=== PATIENT | male | born 1965 | race Caucasian/White ===

== ENCOUNTER 2020-03-13 08:45 | Outpatient (REF) | payer OTHER, SELFPAY ==
[2020-03-13 09:17] LABS: MANUAL DIFF FLAG NO
[2020-03-13 09:21] LABS: Basophils Percent Auto 0.1 % (0-2); Eosinophils Absolute Auto 0.2 X10*3/uL (0.0-0.4); Eosinophils Percent Auto 2.5 % (0-4); Hematocrit 44.8 % (42-52); Hemoglobin 15.5 g/dl (14.0-18.0); Imm Gran Abs Auto 0.02 X10*3/uL (0.00-0.03); Imm Gran Pct Auto 0.3 % (0.0-0.4); Lymphocytes Percent Auto 42.2 % (20-40); Mean Corpuscular HGB Conc 34.6 g/dl (31.0-36.0); Mean Corpuscular Hemoglobin 31.3 pg (27.0-33.0); Mean Corpuscular Volume 90.3 fL (80-98); Mean Platelet Volume 10.4 fL (9.4-12.4); Monocytes Absolute Auto 0.6 X10*3/uL (0.1-1.2); Neutrophils Absolute Auto 3.3 X10*3/uL (2.0-8.3); Neutrophils Percent Auto 46.9 % (45-73); Platelet Count 177 X10*3/uL (160-400); Red Blood Count 4.96 X10*6/uL (4.60-5.80); White Blood Count 7.1 X10*3/uL (4.8-10.8)
[2020-03-13 09:45] LABS: Alanine Aminotransferase 53 U/L (0-40); Albumin Level 4.4 g/dL (3.5-5.0); Alkaline Phosphatase 58 U/L (39-117); Anion Gap 13 (12-20); Aspartate Amino Transferase 30 U/L (5-37); Bilirubin Total 0.7 mg/dL (0.0-1.0); Blood Urea Nitrogen 22 mg/dL (9-16); Calcium 9.2 mg/dL (8.4-10.2); Carbon Dioxide 28 mmol/L (22-29); Chloride 103 mmol/L (96-108); Cholesterol 239 mg/dL; Estimated Glomerular Filt Rate > 60; Glucose Fasting 196 mg/dL (60-99); HDL Cholesterol 42 mg/dL; LDL Cholesterol Calculated 159 mg/dl; Potassium 4.5 mmol/l (3.3-5.1); Sodium 139 mmol/L (135-145); Total Protein 7.6 g/dL (6.5-8.0); Triglycerides 192 mg/dL
[2020-03-13 09:45] LABS: Creatinine Urine 209.64 mg/dL; Microalbum/Creatinine Ratio Ur 22.4 ug/mg cr
[2020-03-13 10:05] LABS: T4 Thyroxine 7.3 ug/dL (4.5-12.0); Thyroid Stimulating Hormone 2.04 mIU/mL (0.32-4.0)
[2020-03-13 11:00] LABS: Folate 13.4 ng/mL (> or = 4.0); Vitamin B12 468 pg/mL (200-900)
== END 2020-03-13 08:46 | disposition home or self-care (01) ==
LOC: HO.LAB 08:45
PROVIDERS: PCP Internal Medicine; Visit Provider Internal Medicine
DX: E78.00 Pure hypercholesterolemia, unspecified (principal); K21.9 Gastro-esophageal reflux disease without esophagitis; E66.9 Obesity, unspecified; I10 Essential (primary) hypertension; E11.65 Type 2 diabetes mellitus with hyperglycemia; G57.30 Lesion of lateral popliteal nerve, unspecified lower limb; Z86.711 Personal history of pulmonary embolism
CPT/HCPCS: 36415; 80053; 80061; 82043; 82607; 82746; 84436; 84443; 85025

== ENCOUNTER → 2020-03-16 14:41 | Outpatient (BNV) | payer OTHER, SELFPAY | PROVIDERS: PCP Internal Medicine; Visit Provider Internal Medicine | DX: I82.402 Acute embolism and thrombosis of unspecified deep veins of left lower extremity (principal); L27.0 Generalized skin eruption due to drugs and medicaments taken internally | CPT/HCPCS: 99213; 99214 ==

== ENCOUNTER → 2020-03-27 13:11 | Outpatient (BNVA) | payer OTHER, SELFPAY | PROVIDERS: PCP Internal Medicine; Referring Provider Internal Medicine; Visit Provider Internal Medicine Endocrinology, Diabetes & Metabolism | DX: E11.65 Type 2 diabetes mellitus with hyperglycemia (principal); E11.319 Type 2 diabetes mellitus with unspecified diabetic retinopathy without macular edema; I10 Essential (primary) hypertension; E78.00 Pure hypercholesterolemia, unspecified; E55.9 Vitamin D deficiency, unspecified; Z68.36 Body mass index [BMI] 36.0-36.9, adult; Z79.4 Long term (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 | CPT/HCPCS: 82947; 99214 ==

== ENCOUNTER 2020-05-25 12:02 | Outpatient (REF) | payer OTHER, SELFPAY ==
--- NOTE | 2020-05-25 12:23 | XR_ITS ---
EXAMINATION: XR CHEST CLINICAL INFORMATION: Pneumonia COMPARISON: Previous chest x-ray February 2019 TECHNIQUE: 2 views of the chest were obtained. FINDINGS: The cardiac and mediastinal contours are stable. The lung volumes are low. There is airspace disease seen in the right upper lobe probably representing pneumonia. There are increased bilateral perihilar markings, greater on the left, questionable for infiltrate(s) as well. There is no pleural effusion or pneumothorax. Bony structures are unremarkable. XR/XR chest 2V IMPRESSION: Low lung volumes. Airspace disease in the right upper lobe probably representing pneumonia and question bilateral perihilar pneumonia as well. Follow-up chest x-ray following treatment recommended.
[2020-05-25 12:39] LABS: MANUAL DIFF FLAG NO
[2020-05-25 12:53] LABS: Eosinophils Percent Auto 0.1 % (0-4); Hematocrit 45.4 % (42-52); Hemoglobin 15.3 g/dl (14.0-18.0); Imm Gran Abs Auto 0.02 X10*3/uL (0.00-0.03); Imm Gran Pct Auto 0.3 % (0.0-0.4); Lymphocytes Absolute Auto 1.6 X10*3/uL (1.2-4.9); Lymphocytes Percent Auto 21.1 % (20-40); Mean Corpuscular HGB Conc 33.7 g/dl (31.0-36.0); Mean Corpuscular Hemoglobin 30.5 pg (27.0-33.0); Mean Corpuscular Volume 90.6 fL (80-98); Mean Platelet Volume 11.3 fL (9.4-12.4); Monocytes Absolute Auto 0.5 X10*3/uL (0.1-1.2); Monocytes Percent Auto 5.9 % (2-11); Neutrophils Absolute Auto 5.6 X10*3/uL (2.0-8.3); Neutrophils Percent Auto 72.6 % (45-73); Platelet Count 112 X10*3/uL (160-400); Red Blood Count 5.01 X10*6/uL (4.60-5.80); Red Cell Distribution Width 12.8 % (11.0-16.0); White Blood Count 7.7 X10*3/uL (4.8-10.8)
[2020-05-25 13:23] LABS: Anion Gap 15 (12-20); Blood Urea Nitrogen 14 mg/dL (9-16); Calcium 8.6 mg/dL (8.4-10.2); Carbon Dioxide 29 mmol/L (22-29); Chloride 96 mmol/L (96-108); Estimated Glomerular Filt Rate > 60; Glucose Random 368 mg/dL (60-115); Potassium 4.5 mmol/l (3.3-5.1); Sodium 135 mmol/L (135-145)
== END 2020-05-25 12:03 | disposition home or self-care (01) ==
LOC: HO.LAB 12:02
PROVIDERS: PCP Internal Medicine; Visit Provider Internal Medicine
DX: J18.9 Pneumonia, unspecified organism (principal); Z20.828 Contact with and (suspected) exposure to other viral communicable diseases
CPT/HCPCS: 36415; 71046; 80048; 85025; U0003

== ENCOUNTER 2020-05-27 10:12 | Emergency (ER) | payer OTHER, SELFPAY ==
[2020-05-27 10:23] VITALS: BP 105/73; PULSE 94; RESP 18; TEMP 36.9; O2SAT 94; BMI 34.8
--- NOTE | 2020-05-27 10:27 | ECG_ITS ---
Test Reason : FLU LIKE SYMPTOMS Blood Pressure : / mmHG Vent. Rate : 088 BPM Atrial Rate : 088 BPM P-R Int : 144 ms QRS Dur : 096 ms QT Int : 394 ms P-R-T Axes : 040 024 -13 degrees QTc Int : 476 ms Normal sinus rhythm Inferior T wave inversions Abnormal ECG When compared with ECG of 06-FEB-2019 15:35, T wave inversion now evident in Inferior leads Referred By: Nhi Lemons Electronically Signed By:Conrad Chavez
--- NOTE | 2020-05-27 10:27 | XR_ITS ---
EXAMINATION: XR CHEST CLINICAL INFORMATION: Evaluate for pneumonia COMPARISON: 02/08/2019 and 05/25/2020 TECHNIQUE: Portable AP upright view of the chest was obtained. FINDINGS: Patchy opacity is seen in the right upper lobe with improvement compared to the earlier radiograph. Additionally there is improving left perihilar opacity. The lung volumes remain decreased. No pleural effusion. The heart is not enlarged. XR/XR chest 1V IMPRESSION: Improving bilateral pulmonary opacities with residual changes as above. The findings are compatible with improving pneumonia including atypical/viral infectious etiologies.
[2020-05-27 10:28] VITALS: O2SAT 93
--- NOTE | 2020-05-27 10:35 | ED.URI ---
HPI - URI/Sore Throat General Chief Complaint: Upper Respiratory Symptoms Stated Complaint: cough,pnemonia Time Seen by Provider: 05/27/20 10:19 Source: patient Mode of arrival: ambulatory Limitations: no limitations History of Present Illness HPI Narrative: 54-year-old male with a past medical history of diabetes, DVT/PE not on anticoagulation, hypertension, high cholesterol, vitamin-D deficiency, obesity here with fatigue, loss of appetite and cough with chest wall pain with coughing. The patient tells me that he has been sick with these symptoms for the last 5 days. He was seen at his primary care on 05/25 and had an x-ray which showed pneumonia. He was placed on azithromycin and today is / for him. He continues to have symptoms. He does not feel worse but feels like his symptoms are not improving. Has no shortness of breath, fevers, chills, body aches, vomiting, diarrhea. MD elicited complaint: cough Onset (ago): day(s) Consistency: intermittent Severity: moderate Able to tolerate fluids by mouth: No Associated symptoms: cough and chest pain Treatments prior to arrival: antibiotics Related Data Home Medications Medication Instructions Recorded Confirmed alcohol swabs 1 pad TOPICAL QID 03/12/20 05/25/20 atorvastatin 20 mg tablet 20 mg PO DAILY 03/12/20 05/25/20 flash glucose sensor #1 ea 03/12/20 05/25/20 gabapentin 600 mg tablet 600 mg PO TID 03/12/20 05/25/20 lancets #100 ea 03/12/20 05/25/20 nortriptyline 50 mg capsule 25 mg PO BID 03/12/20 05/25/20 pen needle, diabetic 32 gauge x #50 ea 03/12/20 05/25/20 cholecalciferol (vitamin D3) 125 mcg PO DAILY 03/16/20 05/25/20 [Vitamin D3] rivaroxaban 20 mg tablet 20 mg PO DAILY 05/25/20 05/25/20 Previous Rx's Medication Instructions Recorded empagliflozin 25 mg tablet 25 mg PO DAILY 90 Days #90 tab 03/27/20 insulin aspart U-100 100 unit/mL 20 unit SUBCUT QID 90 Days #90 ml 03/27/20 subcutaneous cartridge insulin glargine 100 unit/mL 50 unit SUBCUT QPM 90 Days #45 ml 03/27/20 subcutaneous solution metformin 1,000 mg tablet 1,000 mg PO BID 90 Days #180 tab 03/27/20 semaglutide 1 mg/dose (2 mg/1.5 1 mg SUBCUT QWEEK 90 Days #9 ml 03/27/20 mL) subcutaneous pen injector lisinopril 10 mg tablet 10 mg PO DAILY #90 tab 04/02/20 cyanocobalamin (vitamin B-12) 1,000 mcg PO DAILY #90 tab 04/05/20 1,000 mcg tablet topiramate 100 mg tablet 100 mg PO DAILY #90 tab 04/11/20 blood sugar diagnostic #150 ea 05/14/20 blood-glucose meter #1 ea 05/14/20 lancets 28 gauge #150 ea 05/14/20 azithromycin 250 mg tablet See Rx Instructions PO .COMPLEX #6 05/25/20 tab Allergies Allergy/AdvReac Type Severity Reaction Status Date / Time shellfish derived Allergy Severe DIFFICULTY Verified 04/02/20 13:54 [SHELLFISH DERIVED] BREATHING clindamycin [CLINDAMYCIN] Allergy Intermediate HIVES Verified 04/02/20 13:54 Review of Systems Review of Systems: Yes all other systems are reviewed and are negative Constitutional: Constitutional: Reports no additional constitutional complaints, Denies body ache(s), Denies chills, Reports fatigue, Denies fever(s), Denies headache(s) and Denies weakness Comments: loss of appetite Eyes: Eyes: Reports no additional eye complaints and Denies change in vision ENT: Reports system reviewed and no additional complaints, except as documented, Denies dizziness, Denies headache(s), Denies nasal congestion, Denies nasal discharge and Denies neck pain Cardiovascular: Cardiovascular: Reports no additional cardiovascular complaints, Reports chest pain, Denies leg edema and Denies dyspnea Respiratory: Respiratory: Reports no additional respiratory complaints, Reports cough and Denies dyspnea Gastrointestinal: Gastrointestinal: Reports no additional gastrointestinal complaints, Denies abdominal pain, Denies diarrhea, Denies nausea and Denies vomiting Genitourinary: Genitourinary: Denies urinary incontinence Musculoskeletal: Musculoskeletal: Reports no additional musculoskeletal complaints, Denies back pain, Denies arthralgias, Denies joint swelling, Denies neck pain, Denies numbness and Denies tingling Integumentary/Breasts: Skin/Breast: Reports system reviewed and no additional complaints, except as docu and Denies rash Neurologic: Reports system reviewed and no additional complaints, except as documented, Denies Abnormal speech present, Denies dizziness, Denies headache(s), Denies numbness, Denies tingling and Denies weakness Endocrine: Endocrine: Reports fatigue [facility] Past Medical History Attestation statement: The following information was validated with the patient. Source: old records reviewed and nursing notes reviewed Medical History Bilateral pulmonary embolism Diabetes type 2, uncontrolled 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 associated with type 2 diabetes mellitus DM type 2 (diabetes mellitus, type 2) H/O deep venous thrombosis HTN (hypertension) Hypercholesteremia penitentiary (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 Obesity Vitamin D deficiency Surgical History History of laparotomy Hx of hernia repair Hx of lithotripsy Hx of pelvic surgery Family History Family History Father Emphysema of lung Mother Diabetes Hypertension Social History Social History Alcohol intake: never Smoking Status: Never smoker Physical Exam Vital Signs: Vital Signs: Last Vital Signs Temp 98.4 F 05/27/20 11:19 Pulse 80 05/27/20 12:08 Resp 18 05/27/20 12:08 BP 104/72 05/27/20 12:08 Pulse Ox 96 05/27/20 12:08 Body Mass Index 34.8 Const: General: cooperative, healthy appearing, comfortable and no acute distress Orientation/consciousness: patient oriented x3 Limitations: no limitations HENMT: Head: Yes normal to inspection Ears: hearing grossly normal bilaterally General nose exam: Normal external nose present Face and sinus: Yes normal facial exam Mouth: Normal oral and palatal mucosa present Throat: Yes posterior oropharynx normal Eyes: General: appearance normal, both eyes and all related structures Pupils: Equal, round and reactive pupils present Neck: Neck: Yes normal visual inspection Chest: Other: The patient has some bilateral rib pain. Tender to palpate. Worsened with deep breathing and movement Chest palpation & inspection: normal inspection of the chest Resp: Effort & Inspection: normal respiratory effort Auscultation: clear to auscultation bilaterally Cardio: Rate: regular rate Rhythm: regular rhythm Peripheral pulses: Peripheral pulses 2+ throughout GI: Inspection: Yes normal to inspection Palpation (GI): Soft to palpation and nontender Auscultation: normal bowel sounds Back/Spine/Pelvis: Thoracic/Lumbar Spine: thoracic and lumbar spine normal to inspection Skin: General skin exam: no rashes or lesions noted Neuro: General: patient oriented x3, no focal motor deficits and normal sensation to monofilament Cranial nerves: Yes Equal, round and reactive pupils present Cognition (Neuro): normal cognition Speech: No Abnormal speech present Gait exam (Neuro): Normal gait present Motor exam (neuro): 5/5 motor strength present throughout Extrem: General: Yes normal to inspection Course Course Course Narrative: 54-year-old male currently on azithromycin for pneumonia here with continued symptoms of cough, chest wall pain, fatigue and loss of appetite. On arrival the patient has clear lung sounds, stable saturations and is afebrile. He is speaking full sentences in no apparent distress. Will repeat chest x-ray, check labs, EKG, COVID testing. Will give normal saline bolus and reassess. 1130-x-ray shows improving pneumonia. Patient has a mild thrombocytopenia. Mildly elevated lactic acid. Fluids infusing. This is from a viral infection as the patient is COVID positive 1415-repeat lactic improved. Patient has stable vital signs with oxygen saturation greater than 95%. He is feeling improved would like to be discharged home. Recommended continuing his antibiotics. Reviewed worrisome signs and symptoms and when to return to the emergency department. Comfortable discharge home. MDM - URI/Sore Throat Medical Records Attestation: I reviewed the patient's medical records. Lab Data Attestation: I reviewed the patient's lab results. Result diagrams: 05/27/20 10:34 05/27/20 10:34 Labs: Lab Results 05/27/20 05/27/20 05/27/20 Range/Units 10:34 10:34 10:34 WBC 6.8 (4.8-10.8) X10*3/uL RBC 5.11 (4.60-5.80) X10*6/uL Hgb 15.6 (14.0-18.0) g/dl Hct 46.1 (42-52) % MCV 90.2 (80-98) fL MCH 30.5 (27.0-33.0) pg MCHC 33.8 (31.0-36.0) g/dl RDW 12.7 (11.0-16.0) % Plt Count 159 L D (160-400) X10*3/uL MPV 11.5 (9.4-12.4) fL Immature Gran % (Auto) Cancelled Neut % (Auto) Cancelled Lymph % (Auto) Cancelled [place] % (Auto) Cancelled Eos % (Auto) Cancelled Baso % (Auto) Cancelled Lymph # (Auto) Cancelled [place] # (Auto) Cancelled Eos # (Auto) Cancelled Baso # (Auto) Cancelled Abs Immat Gran (auto) Cancelled Absolute Neuts (auto) Cancelled Absolute Nucleated RBC 0.000 (0.0-0.012) X10*3/uL Nucleated RBC % (auto) 0.0 (0.0-0.2) /100WBC Neutrophils % (Manual) 64 (45-73) % Band Neutrophils % 5 (3-5) % Lymphocytes % (Manual) 25 (20-40) % Monocytes % (Manual) 5 (2-11) % Basophils % (Manual) 1 (0-1) % Abs Neuts (Manual) 4.7 (2.2-7.9) X10*3/uL Lymphocytes # (Manual) 1.7 (0.6-4.8) X10*3/uL Monocytes # (Manual) 0.3 (0.0-1.2) X10*3/uL Basophils # (Manual) 0.1 (0.0-0.3) X10*3/uL Platelet Estimate NORMAL (NORMAL) Plt Morphology Comment NORMAL RBC Morphology NORMAL PT 14.2 H (10.8-13.0) SEC INR 1.2 H (0.9-1.1) Sodium 138 (135-145) mmol/L Potassium 3.7 (3.3-5.1) mmol/l Chloride 99 (96-108) mmol/L Carbon Dioxide 24 (22-29) mmol/L Anion Gap 19 (12-20) BUN 16 (9-16) mg/dL Creatinine 1.07 (0.5-1.4) mg/dL Estim Creat Clear Calc 89.3 Estimated GFR > 60 Random Glucose 241 H (60-115) mg/dL Lactic Acid (0.5-2.0) mmol/L Lactic Acid Fup @ 2Hr (0.5-2.0) mmol/L Calcium 8.9 (8.4-10.2) mg/dL Magnesium 2.3 (1.6-2.6) mg/dL Total Bilirubin 1.0 (0.0-1.0) mg/dL Direct Bilirubin 0.5 (0.0-0.5) mg/dL AST 38 H (5-37) U/L ALT 42 H (0-40) U/L Alkaline Phosphatase 48 (39-117) U/L Troponin I High Sens (<3.5-35.0) ng/L Total Protein 7.5 (6.5-8.0) g/dL Albumin 3.8 (3.5-5.0) g/dL Coronavirus (PCR) (Negative) Influenza Type A (PCR) (Negative) Influenza Type B (PCR) (Negative) RSV RNA Qual (PCR) (Negative) 05/27/20 05/27/20 05/27/20 Range/Units 10:34 10:34 10:34 WBC (4.8-10.8) X10*3/uL RBC (4.60-5.80) X10*6/uL Hgb (14.0-18.0) g/dl Hct (42-52) % MCV (80-98) fL MCH (27.0-33.0) pg MCHC (31.0-36.0) g/dl RDW (11.0-16.0) % Plt Count (160-400) X10*3/uL MPV (9.4-12.4) fL Immature Gran % (Auto) Neut % (Auto) Lymph % (Auto) [place] % (Auto) Eos % (Auto) Baso % (Auto) Lymph # (Auto) [place] # (Auto) Eos # (Auto) Baso # (Auto) Abs Immat Gran (auto) Absolute Neuts (auto) Absolute Nucleated RBC (0.0-0.012) X10*3/uL Nucleated RBC % (auto) (0.0-0.2) /100WBC Neutrophils % (Manual) (45-73) % Band Neutrophils % (3-5) % Lymphocytes % (Manual) (20-40) % Monocytes % (Manual) (2-11) % Basophils % (Manual) (0-1) % Abs Neuts (Manual) (2.2-7.9) X10*3/uL Lymphocytes # (Manual) (0.6-4.8) X10*3/uL Monocytes # (Manual) (0.0-1.2) X10*3/uL Basophils # (Manual) (0.0-0.3) X10*3/uL Platelet Estimate (NORMAL) Plt Morphology Comment RBC Morphology PT (10.8-13.0) SEC INR (0.9-1.1) Sodium (135-145) mmol/L Potassium (3.3-5.1) mmol/l Chloride (96-108) mmol/L Carbon Dioxide (22-29) mmol/L Anion Gap (12-20) BUN (9-16) mg/dL Creatinine (0.5-1.4) mg/dL Estim Creat Clear Calc Estimated GFR Random Glucose (60-115) mg/dL Lactic Acid 2.5 H* (0.5-2.0) mmol/L Lactic Acid Fup @ 2Hr (0.5-2.0) mmol/L Calcium (8.4-10.2) mg/dL Magnesium (1.6-2.6) mg/dL Total Bilirubin (0.0-1.0) mg/dL Direct Bilirubin (0.0-0.5) mg/dL AST (5-37) U/L ALT (0-40) U/L Alkaline Phosphatase (39-117) U/L Troponin I High Sens 3.9 (<3.5-35.0) ng/L Total Protein (6.5-8.0) g/dL Albumin (3.5-5.0) g/dL Coronavirus (PCR) POSITIVE A (Negative) Influenza Type A (PCR) NEGATIVE (Negative) Influenza Type B (PCR) NEGATIVE (Negative) RSV RNA Qual (PCR) NEGATIVE (Negative) 05/27/20 Range/Units 13:24 WBC (4.8-10.8) X10*3/uL RBC (4.60-5.80) X10*6/uL Hgb (14.0-18.0) g/dl Hct (42-52) % MCV (80-98) fL MCH (27.0-33.0) pg MCHC (31.0-36.0) g/dl RDW (11.0-16.0) % Plt Count (160-400) X10*3/uL MPV (9.4-12.4) fL Immature Gran % (Auto) Neut % (Auto) Lymph % (Auto) [place] % (Auto) Eos % (Auto) Baso % (Auto) Lymph # (Auto) [place] # (Auto) Eos # (Auto) Baso # (Auto) Abs Immat Gran (auto) Absolute Neuts (auto) Absolute Nucleated RBC (0.0-0.012) X10*3/uL Nucleated RBC % (auto) (0.0-0.2) /100WBC Neutrophils % (Manual) (45-73) % Band Neutrophils % (3-5) % Lymphocytes % (Manual) (20-40) % Monocytes % (Manual) (2-11) % Basophils % (Manual) (0-1) % Abs Neuts (Manual) (2.2-7.9) X10*3/uL Lymphocytes # (Manual) (0.6-4.8) X10*3/uL Monocytes # (Manual) (0.0-1.2) X10*3/uL Basophils # (Manual) (0.0-0.3) X10*3/uL Platelet Estimate (NORMAL) Plt Morphology Comment RBC Morphology PT (10.8-13.0) SEC INR (0.9-1.1) Sodium (135-145) mmol/L Potassium (3.3-5.1) mmol/l Chloride (96-108) mmol/L Carbon Dioxide (22-29) mmol/L Anion Gap (12-20) BUN (9-16) mg/dL Creatinine (0.5-1.4) mg/dL Estim Creat Clear Calc Estimated GFR Random Glucose (60-115) mg/dL Lactic Acid (0.5-2.0) mmol/L Lactic Acid Fup @ 2Hr 2.0 (0.5-2.0) mmol/L Calcium (8.4-10.2) mg/dL Magnesium (1.6-2.6) mg/dL Total Bilirubin (0.0-1.0) mg/dL Direct Bilirubin (0.0-0.5) mg/dL AST (5-37) U/L ALT (0-40) U/L Alkaline Phosphatase (39-117) U/L Troponin I High Sens (<3.5-35.0) ng/L Total Protein (6.5-8.0) g/dL Albumin (3.5-5.0) g/dL Coronavirus (PCR) (Negative) Influenza Type A (PCR) (Negative) Influenza Type B (PCR) (Negative) RSV RNA Qual (PCR) (Negative) Imaging Data Chest x-ray: Attestation: I personally reviewed and interpreted this imaging study as follows: Radiologist's impression: EXAMINATION: XR CHEST CLINICAL INFORMATION: Evaluate for pneumonia COMPARISON: 02/08/2019 and 05/25/2020 TECHNIQUE: Portable AP upright view of the chest was obtained. FINDINGS: Patchy opacity is seen in the right upper lobe with improvement compared to the earlier radiograph. Additionally there is improving left perihilar opacity. The lung volumes remain decreased. No pleural effusion. The heart is not enlarged. XR/XR chest 1V IMPRESSION: Improving bilateral pulmonary opacities with residual changes as above. The findings are compatible with improving pneumonia including atypical/viral infectious etiologies. ECG Data Attestation: I personally reviewed and interpreted this ECG as follows: ECG interpretation date: 05/27/20 ECG interpretation time: 11:12 Interpretation: Normal sinus rhythm, rate 88, normal MN, normal QRS, normal QT Discharge Plan Discharge Clinical Impression: COVID-19 Patient Disposition: Home, Self-Care Instructions: COVID-19 (Coronavirus Disease 2019) (ED) Additional Instructions: Your x-ray looks better today. Continue your antibiotics. You have tested positive for COVID-19. You will need to self quarantine for a total of 10 days per the CDC and have completely resolved symptoms for greater than 24 hours. Take Motrin or Tylenol as needed for pain or fever Increase fluids, rest Return for severe shortness of breath, fever that does not respond to Motrin or Tylenol Prescriptions: No Action cyanocobalamin (vitamin B-12) [Vitamin B-12] 1,000 mcg tablet 1,000 mcg PO DAILY Qty: 90 RF: 3 topiramate 100 mg tablet 100 mg PO DAILY Qty: 90 RF: 1 (DME) blood-glucose meter [FreeStyle Lite Meter] Kit See Rx Instructions .ROUTE .MEDSUPPLY Qty: 1 RF: 0 (DME) FreeStyle Lite Strips Strip See Rx Instructions .ROUTE .MEDSUPPLY Qty: 150 RF: 6 (DME) lancets [FreeStyle Lancets] 28 gauge misc See Rx Instructions .ROUTE .MEDSUPPLY Qty: 150 RF: 6 cholecalciferol (vitamin D3) [Vitamin D3] 125 mcg (5,000 unit) Tablet 125 mcg PO DAILY RF: 0 Xarelto 20 mg tablet 20 mg PO DAILY RF: 0 azithromycin [Zithromax] 250 mg tablet See Rx Instructions PO .COMPLEX Qty: 6 RF: 0 lisinopril 10 mg tablet 10 mg PO DAILY Qty: 90 RF: 8 nortriptyline 50 mg capsule 25 mg PO BID RF: 0 alcohol swabs [Alcohol Prep Pads] Pads, Medicated 1 pad topical QID RF: 0 (DME) lancets [Accu-Chek Fastclix Lancet Drum] Misc See Rx Instructions .ROUTE .MEDSUPPLY Qty: 100 RF: 0 (DME) FreeStyle Magdalene 14 Day Sensor Kit See Rx Instructions .ROUTE .MEDSUPPLY Qty: 1 RF: 0 atorvastatin 20 mg tablet 20 mg PO DAILY RF: 0 gabapentin 600 mg tablet 600 mg PO TID RF: 0 (DME) pen needle, diabetic [BD Ultra-Fine Annalisa Pen Needle] 32 gauge x 5/32 needle See Rx Instructions .ROUTE .MEDSUPPLY Qty: 50 RF: 0 Ozempic 1 mg/dose (2 mg/1.5 mL) pen injector 1 mg SUBCUT QWEEK 90 Days Qty: 9 RF: 2 metformin 1,000 mg tablet 1,000 mg PO BID 90 Days Qty: 180 RF: 1 Jardiance 25 mg tablet 25 mg PO DAILY 90 Days Qty: 90 RF: 1 Lantus U-100 Insulin 100 unit/mL solution 50 unit subcut QPM 90 Days Qty: 45 RF: 1 insulin aspart U-100 [Novolog PenFill U-100 Insulin] 100 unit/mL cartridge 20 unit subcut QID 90 Days Qty: 90 RF: 1 Referrals: Po,Herlinda Azul MD [Primary Care Provider] - 2 days Interventions: ED Discharge Assessment Last Done: 05/27/20 14:15 Discharge Date/Time: 05/27/20 14:34
[2020-05-27 10:43] LABS: Hematocrit 46.1 % (42-52); Hemoglobin 15.6 g/dl (14.0-18.0); Mean Corpuscular HGB Conc 33.8 g/dl (31.0-36.0); Mean Corpuscular Hemoglobin 30.5 pg (27.0-33.0); Mean Corpuscular Volume 90.2 fL (80-98); Mean Platelet Volume 11.5 fL (9.4-12.4); Platelet Count 159 X10*3/uL (160-400); Red Blood Count 5.11 X10*6/uL (4.60-5.80); Red Cell Distribution Width 12.7 % (11.0-16.0); White Blood Count 6.8 X10*3/uL (4.8-10.8)
[2020-05-27 10:50] LABS: INTERNATIONAL NORM RATIO 1.2 (0.9-1.1); Prothrombin Time 14.2 SEC (10.8-13.0)
--- NOTE | 2020-05-27 11:04 | PC.NURSE ---
Patient complaining of loss of appetite and not feeling well. Was seen by PCP on Thursday, diagnosed with pneumonia, and being treated with zpack. Patient reports feeling no different form Thursday. Reports no worsening of symptoms. Biggest complaint is loss of appetite. Patient is well appearing with regular, even, and nonlabored respirations. Skin PWD. O2 sat 94% on room air. Does not feel SOB at this time. IV established and labs drawn. Swabbed for respiratory panel.
[2020-05-27 11:07] LABS: Alanine Aminotransferase 42 U/L (0-40); Albumin Level 3.8 g/dL (3.5-5.0); Alkaline Phosphatase 48 U/L (39-117); Anion Gap 19 (12-20); Aspartate Amino Transferase 38 U/L (5-37); Bilirubin Direct 0.5 mg/dL (0.0-0.5); Blood Urea Nitrogen 16 mg/dL (9-16); Calcium 8.9 mg/dL (8.4-10.2); Carbon Dioxide 24 mmol/L (22-29); Chloride 99 mmol/L (96-108); Creatinine Clr Calc Pharmacy 89.3; Estimated Glomerular Filt Rate > 60; Glucose Random 241 mg/dL (60-115); Magnesium 2.3 mg/dL (1.6-2.6); Potassium 3.7 mmol/l (3.3-5.1); Sodium 138 mmol/L (135-145); Total Protein 7.5 g/dL (6.5-8.0)
[2020-05-27 11:10] LABS: Troponin-I High Sensitivity 3.9 ng/L (<3.5-35.0)
[2020-05-27 11:15] LABS: Lactic Acid 2.5 mmol/L (0.5-2.0)
[2020-05-27 11:19] VITALS: BP 115/72; PULSE 89; RESP 24; TEMP 36.9; O2SAT 95
[2020-05-27 11:23] LABS: Influenza A PCR NEGATIVE (Negative); Influenza B PCR NEGATIVE (Negative); Resp Syncy Virus RNA Qual PCR NEGATIVE (Negative); SARS COV2 PCR INHOUSE POSITIVE (Negative)
[2020-05-27] MEDS: 0.9 % Sodium Chloride 1,000 ML 999 ML IV (11:27)
[2020-05-27 11:29] LABS: Band Neutrophils Percent 5 % (3-5); Basophils Abs Manual 0.1 X10*3/uL (0.0-0.3); Basophils Percent Manual 1 % (0-1); Lymphocytes Absolute Manual 1.7 X10*3/uL (0.6-4.8); Lymphocytes Percent Manual 25 % (20-40); Monocytes Absolute Manual 0.3 X10*3/uL (0.0-1.2); Monocytes Percent Manual 5 % (2-11); Neutrophils Absolute Manual 4.7 X10*3/uL (2.2-7.9); Neutrophils Percent Manual 64 % (45-73)
--- NOTE | 2020-05-27 11:29 | PC.NURSE ---
patient a&ox3, ekg performed, second set of blood cultures obtained, pt nsr 80s on registered nurse cardiac, 94% on room air, pt speaking in full sentences no [place]/sob noted at this time, ivf running per order, will continue to monitor.
[2020-05-27 11:30] LABS: Platelet Estimate NORMAL (NORMAL); Platelet Morphology Comment NORMAL; RBC Morphology NORMAL
[2020-05-27 12:08] VITALS: BP 104/72; PULSE 80; RESP 18; O2SAT 96
[2020-05-27 12:42] LABS: Reflex Lactate? Lactic Acid Added
== END 2020-05-27 14:34 | disposition home or self-care (01) ==
PROVIDERS: Nurse Practitioner Family; Emergency Provider Emergency Medicine; PCP Internal Medicine
DX: U07.1 COVID-19 (principal); E11.9 Type 2 diabetes mellitus without complications; Z86.711 Personal history of pulmonary embolism; Z86.718 Personal history of other venous thrombosis and embolism; Z87.01 Personal history of pneumonia (recurrent)
CPT/HCPCS: 0241U; 36415; 71045; 80048; 80076; 83605; 83735; 84484; 85007; 85025; 85027; 85610; 87040; 93005; 96360; 99284; 99285

== ENCOUNTER 2020-06-07 15:12 | Outpatient (REF) | payer OTHER, SELFPAY | END 2020-06-07 15:13 | disposition home or self-care (01) | LOC: HO.LAB 15:12 | PROVIDERS: Visit Provider Internal Medicine | DX: Z20.828 Contact with and (suspected) exposure to other viral communicable diseases (principal) | CPT/HCPCS: C9803; U0003 ==

== ENCOUNTER → 2020-06-29 08:25 | Outpatient (BNVA) | payer OTHER, SELFPAY | PROVIDERS: PCP Internal Medicine; Referring Provider Internal Medicine; Visit Provider Internal Medicine Endocrinology, Diabetes & Metabolism | DX: E11.65 Type 2 diabetes mellitus with hyperglycemia (principal); E11.319 Type 2 diabetes mellitus with unspecified diabetic retinopathy without macular edema; Z79.4 Long term (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; I10 Essential (primary) hypertension; E78.00 Pure hypercholesterolemia, unspecified; E55.9 Vitamin D deficiency, unspecified; E66.9 Obesity, unspecified | CPT/HCPCS: Q3014 ==

== ENCOUNTER 2020-07-20 11:42 | Outpatient (REF) | payer OTHER, SELFPAY ==
[2020-07-20 13:58] LABS: Estimated Average Glucose 269 mg/dL
[2020-07-20 14:27] LABS: Alanine Aminotransferase 38 U/L (0-40); Albumin Level 3.7 g/dL (3.5-5.0); Alkaline Phosphatase 53 U/L (39-117); Anion Gap 17 (12-20); Aspartate Amino Transferase 30 U/L (5-37); Bilirubin Total 0.7 mg/dL (0.0-1.0); Blood Urea Nitrogen 12 mg/dL (9-16); Calcium 8.5 mg/dL (8.4-10.2); Carbon Dioxide 22 mmol/L (22-29); Chloride 105 mmol/L (96-108); Cholesterol 248 mg/dL; Estimated Glomerular Filt Rate > 60; Glucose Fasting 202 mg/dL (60-99); HDL Cholesterol 43 mg/dL; LDL Cholesterol Calculated 172 mg/dl; Potassium 4.1 mmol/L (3.3-5.1); Sodium 140 mmol/L (135-145); Total Protein 6.7 g/dL (6.5-8.0); Triglycerides 167 mg/dL
[2020-07-21 03:13] LABS: LDL Cholesterol Direct 186 mg/dL (<100)
== END 2020-07-20 11:43 | disposition home or self-care (01) ==
LOC: HO.10HDL 11:42
PROVIDERS: Visit Provider Internal Medicine Endocrinology, Diabetes & Metabolism
DX: E11.65 Type 2 diabetes mellitus with hyperglycemia (principal); Z79.4 Long term (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; E78.00 Pure hypercholesterolemia, unspecified
CPT/HCPCS: 36415; 80053; 80061; 83036; 83721

== ENCOUNTER → 2020-09-03 10:06 | Outpatient (BNVA) | payer OTHER, SELFPAY | PROVIDERS: PCP Internal Medicine; Visit Provider Internal Medicine Endocrinology, Diabetes & Metabolism | DX: E11.65 Type 2 diabetes mellitus with hyperglycemia (principal); E11.319 Type 2 diabetes mellitus with unspecified diabetic retinopathy without macular edema; Z79.4 Long term (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; E78.00 Pure hypercholesterolemia, unspecified; E55.9 Vitamin D deficiency, unspecified; E66.9 Obesity, unspecified; I10 Essential (primary) hypertension | CPT/HCPCS: 82947; 99212 ==

== ENCOUNTER → 2020-12-03 09:12 | Outpatient (BNVA) | payer OTHER, SELFPAY | PROVIDERS: PCP Internal Medicine; Visit Provider Internal Medicine Endocrinology, Diabetes & Metabolism | DX: E11.65 Type 2 diabetes mellitus with hyperglycemia (principal); E11.3293 Type 2 diabetes mellitus with mild nonproliferative diabetic retinopathy without macular edema, bilateral; E78.00 Pure hypercholesterolemia, unspecified; E55.9 Vitamin D deficiency, unspecified; I10 Essential (primary) hypertension; Z79.4 Long term (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 | CPT/HCPCS: 82947; 99212 ==

== ENCOUNTER 2020-12-16 13:52 | Emergency (ER) | payer OTHER, SELFPAY ==
[2020-12-16 14:07] VITALS: BP 126/71; PULSE 100; RESP 18; TEMP 36.7; O2SAT 98; BMI 34.4
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
== END 2020-12-16 17:24 | disposition home or self-care (01) ==
PROVIDERS: Emergency Provider Internal Medicine; PCP Internal Medicine
DX: S30.0XXA Contusion of lower back and pelvis, initial encounter (principal); S80.812A Abrasion, left lower leg, initial encounter; I10 Essential (primary) hypertension; E11.9 Type 2 diabetes mellitus without complications; Z86.711 Personal history of pulmonary embolism; Z79.4 Long term (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; Z79.01 Long term (current) use of anticoagulants; Z79.899 Other long term (current) drug therapy; W01.0XXA Fall on same level from slipping, tripping and stumbling without subsequent striking against object, initial encounter; Y93.9 Activity, unspecified; Y99.9 Unspecified external cause status; Y92.9 Unspecified place or not applicable
CPT/HCPCS: 99283

== ENCOUNTER 2020-12-20 13:55 | Outpatient (REF) | payer OTHER, SELFPAY ==
--- NOTE | ~2020-12-20 | XR_ITS ---
EXAMINATION: XR LUMBOSACRAL SPINE CLINICAL INFORMATION: Lower back pain. COMPARISON: CT abdomen/pelvis dated 08/30/2015. TECHNIQUE: Three views of the lumbosacral spine. FINDINGS: Normal vertebral body alignment. The lumbar lordosis is maintained. No acute fracture or subluxation. No loss of vertebral body height. Mild loss of intervertebral disc height with tiny endplate osteophytes at L3-L4 and L4-L5. Bilateral facet arthropathy at L4-L5 and L5-S1. Fusion hardware at the right and left sacroiliac joints. Stabilization plate and fixation screws across the symphysis pubis. Chronic deformity of the pelvis, consistent with remote fractures. XR/XR lumbar spine 2-3V IMPRESSION: No acute fracture or subluxation. Minimal degenerative disc disease at L3-L4 and L4-L5 with bilateral facet arthropathy at L4-L5 and L5-S1.
[2020-12-20 16:19] LABS: Cholesterol 182 mg/dL; HDL Cholesterol 43 mg/dL; LDL Cholesterol Calculated 101 mg/dl; Triglycerides 193 mg/dL
[2020-12-21 07:56] LABS: LDL Cholesterol Direct 117 mg/dL (<100)
== END 2020-12-20 13:56 | disposition home or self-care (01) ==
LOC: HO.XRAY 13:55
PROVIDERS: Absent Provider Internal Medicine; PCP Internal Medicine; Visit Provider Internal Medicine Endocrinology, Diabetes & Metabolism
DX: M54.5 Low back pain (principal); E11.65 Type 2 diabetes mellitus with hyperglycemia
CPT/HCPCS: 36415; 72100; 80061; 83721

== ENCOUNTER 2021-07-04 11:10 | Outpatient (REF) | payer OTHER, SELFPAY ==
[2021-07-04 11:55] LABS: MANUAL DIFF FLAG NO
[2021-07-04 12:36] LABS: Basophils Percent Auto 0.2 % (0-2); Eosinophils Absolute Auto 0.3 X10*3/uL (0.0-0.4); Eosinophils Percent Auto 3.4 % (0-4); Hematocrit 45.4 % (42.0-52.0); Hemoglobin 15.3 g/dl (14.0-18.0); Imm Gran Abs Auto 0.02 X10*3/uL (0.00-0.03); Imm Gran Pct Auto 0.2 % (0.0-0.4); Lymphocytes Absolute Auto 3.4 X10*3/uL (1.2-4.9); Lymphocytes Percent Auto 42.6 % (20-40); Mean Corpuscular HGB Conc 33.7 g/dl (31.0-36.0); Mean Corpuscular Hemoglobin 30.7 pg (27.0-33.0); Mean Corpuscular Volume 91.2 fL (80.0-98.0); Mean Platelet Volume 10.4 fL (9.4-12.4); Monocytes Absolute Auto 0.6 X10*3/uL (0.1-1.2); Monocytes Percent Auto 7.7 % (2-11); Neutrophils Absolute Auto 3.7 x10*3/uL (2.0-8.3); Neutrophils Percent Auto 45.9 % (45-73); Platelet Count 181 X10*3/uL (160-400); Red Blood Count 4.98 X10*6/uL (4.60-5.80)
[2021-07-04 13:02] LABS: Alanine Aminotransferase 39 U/L (0-40); Albumin Level 4.2 g/dL (3.5-5.0); Alkaline Phosphatase 63 U/L (39-117); Anion Gap 13 (12-20); Aspartate Amino Transferase 24 U/L (5-37); Bilirubin Total 0.5 mg/dL (0.0-1.0); Blood Urea Nitrogen 19 mg/dL (9-16); Calcium 9.8 mg/dL (8.4-10.2); Carbon Dioxide 24 mmol/L (22-29); Chloride 106 mmol/L (96-108); Cholesterol 131 mg/dL; Estimated Glomerular Filt Rate > 60; Glucose Random 109 mg/dL (60-115); HDL Cholesterol 43 mg/dL; LDL Cholesterol Calculated 73 mg/dl; Potassium 4.4 mmol/L (3.3-5.1); Sodium 139 mmol/L (135-145); Total Protein 7.5 g/dL (6.5-8.0); Triglycerides 79 mg/dL
[2021-07-04 13:23] LABS: Free T4 (Free Thyroxine) 0.83 ng/dL (0.71-1.85); Thyroid Stimulating Hormone 2.15 uIU/mL (0.32-4.0)
[2021-07-04 13:27] LABS: Creatinine Urine 90.02 mg/dL; Microalbumin Urine < 5.0 mg/L
[2021-07-04 14:06] LABS: Folate 16.5 ng/mL (> or = 4.0); Vitamin B12 828 pg/mL (200-900)
== END 2021-07-04 11:11 | disposition home or self-care (01) ==
LOC: HO.LAB 11:10
PROVIDERS: PCP Internal Medicine; Visit Provider Internal Medicine
DX: E11.65 Type 2 diabetes mellitus with hyperglycemia (principal); E78.00 Pure hypercholesterolemia, unspecified
CPT/HCPCS: 36415; 80053; 80061; 82043; 82607; 82746; 84439; 84443; 85025

== ENCOUNTER → 2021-07-05 07:59 | Outpatient (BNVA) | payer OTHER, SELFPAY | PROVIDERS: Visit Provider Nurse Practitioner Gerontology | DX: E11.65 Type 2 diabetes mellitus with hyperglycemia (principal); E78.00 Pure hypercholesterolemia, unspecified; E55.9 Vitamin D deficiency, unspecified; I10 Essential (primary) hypertension; Z79.4 Long term (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 | CPT/HCPCS: 82947; 83036; 99212 ==

== ENCOUNTER → 2021-08-22 15:49 | Outpatient (BNVA) | payer OTHER, SELFPAY | PROVIDERS: PCP Internal Medicine; Referring Provider Internal Medicine; Visit Provider Surgery | DX: Z86.010 Personal history of colon polyps (principal) | CPT/HCPCS: 99202 ==

== ENCOUNTER → 2021-10-04 08:01 | Outpatient (BNVA) | payer OTHER, SELFPAY | PROVIDERS: PCP Internal Medicine; Visit Provider Nurse Practitioner Gerontology | DX: E11.65 Type 2 diabetes mellitus with hyperglycemia (principal); E55.9 Vitamin D deficiency, unspecified; E78.00 Pure hypercholesterolemia, unspecified; I10 Essential (primary) hypertension; Z79.4 Long term (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 | CPT/HCPCS: 82947; 83036; 99212 ==

== ENCOUNTER 2021-10-18 06:28 | Day surgery (SDC) | payer OTHER, SELFPAY ==
[2021-10-14 10:10] VITALS: BMI 39.4
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
[2021-10-18 06:58] VITALS: BP 140/93; PULSE 93; RESP 16; TEMP 36.9; O2SAT 96; BMI 40.7
[2021-10-18 07:07] LABS: Glucose, Whole Blood 249 mg/dL (60-115)
[2021-10-18] MEDS: Sodium Phosphate,Mono-Dibasic 133 ML ENEMA PR (07:07)
--- NOTE | 2021-10-18 07:21 | MHC.SHP ---
Pre-Procedural Eval Section A Date of Service: 10/18/21 Section B Chief Complaint: Personal history of colonic polyps Details of Present Illness: had tubular adenoma on his last colonoscopy 5 years ago Relevant Family History (Specify if Yes): No Relevant Social History: None Present Medications: see Short Stay Collaborative assessment Medical History: Significant History ( diabetes, obesity, history of DVT, reflux disease) Allergies: Allergies Allergy/AdvReac Type Severity Reaction Status Date / Time shellfish derived Allergy Severe DIFFICULTY Verified 10/18/21 06:36 [SHELLFISH DERIVED] BREATHING clindamycin [CLINDAMYCIN] Allergy Intermediate HIVES Verified 10/18/21 06:36 Review of Systems Sugical H&P ROS: Negative: Constitution, Cardiovascular, Respiratory, Neurological, Psychiatric, Hem-Onc, Allergic/Immunologic, Gastrointestinal, Genitourinary, Musculoskeletal, Integumentary, Endocrine and Eyes/Ears/Nose/Throat Exam Surgical H&P Exam: Normal: HEENT, Normal: Heart, Normal: Lungs, Normal: Extremities, Normal: Abdomen, Normal: Skin and Normal: Neurological Plan Diagnosis/Plan: Unchanged I have reviewed the history and physical and performed a pertinent physical examination on my patient. No changes have occurred unless specified.
[2021-10-18] MEDS: Lactated Ringers 1,000 ML 100 ML IVCONT (07:30)
--- NOTE | 2021-10-18 08:04 | W.PM.OPN ---
Operative Note Operative Note Date of Service: 10/18/21 Narrative: Preop diagnosis: History of tubular adenoma of the colon Postop diagnosis: internal and external hemorrhoids suboptimal bowel prep no polyps seen Procedure: Colonoscopy Surgeon: Steve Guillen MD Patient is a 55-year-old male who had a colonoscopy years ago and was noted to have a tubular adenoma in the transverse colon. This was 1 cm in size and was removed with hot snare I had recommended a follow-up colonoscopy in 5 years. He understood the technique of the procedure. He was aware of the risks, benefits, and alternatives. He was brought to the operating room. He was placed in left lateral decubitus position under monitored anesthesia care. A surgical time-out was done. A full digital rectal exam was done. He had prominent internal external hemorrhoidal columns. The tip of the Olympus colonoscope was gently reduced through the anal orifice and advanced with insufflation. The scope was gently advanced with insufflation all the way to the cecum. The cecum was intubated. The cecum was identified by visualization of the ileocecal valve as well as the appendiceal orifice. The cecal mucosa was unremarkable. The scope was gradually withdrawn with careful examination of the entire colonic mucosa being done with scope withdrawal. Patient did have multiple segments with liquid stool with to a lot of irrigation to clear the mucosa. It was unlikely that any large lesion may have been missed. I made multiple passes in the transverse colon. There is no evidence of any recurrent polyp or residual polyp. I reached the abdomen there were no lesions seen. The anal canal and the anal shelf unremarkable. He did have says prominent hemorrhoidal columns, internal external on both the left and right side. The scope was then completely with desufflation The patient tolerated procedure well. There were no complications noted. In view of the sub optimal bowel prep, I would recommend another colonoscopy in 5 years. The patient did admit to having chicken and rice late yesterday afternoon.
[2021-10-18 08:09] VITALS: BP 94/48; PULSE 90; RESP 16; TEMP 36.6; O2SAT 98
[2021-10-18 08:24] VITALS: BP 119/79; PULSE 86; RESP 16; TEMP 36.8; O2SAT 95
--- NOTE | 2021-10-18 09:12 | PC.NURSE ---
Patient states he ate chicken strips yesterday (10/17) at 1400. Bowel prep finished with brown liquid output. Dr. Guillen notified. Fleet enema ordered. Fleet administered, tolerated well. Output visualized by this nurse, clear corrigan water. Dr. Guillen aware.
== END 2021-10-18 09:10 | disposition home or self-care (01) ==
PROVIDERS: PCP Internal Medicine; Visit Provider Surgery
PROC: 0DBE8ZZ Excision of Large Intestine, Via Natural or Artificial Opening Endoscopic (ICD-10-PCS; CPT G0105; principal; 2021-10-18 07:30)
DX: Z12.11 Encounter for screening for malignant neoplasm of colon (principal); Z86.010 Personal history of colon polyps; K64.8 Other hemorrhoids; K64.4 Residual hemorrhoidal skin tags; K21.9 Gastro-esophageal reflux disease without esophagitis; I10 Essential (primary) hypertension; E78.00 Pure hypercholesterolemia, unspecified; E55.9 Vitamin D deficiency, unspecified; G62.9 Polyneuropathy, unspecified; E11.65 Type 2 diabetes mellitus with hyperglycemia; E11.319 Type 2 diabetes mellitus with unspecified diabetic retinopathy without macular edema; Z79.4 Long term (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; Z79.899 Other long term (current) drug therapy; Z88.1 Allergy status to other antibiotic agents; Z87.442 Personal history of urinary calculi; Z86.718 Personal history of other venous thrombosis and embolism
CPT/HCPCS: G0105; 82947

== ENCOUNTER → 2021-10-31 15:35 | Outpatient (BNVA) | payer OTHER, SELFPAY | PROVIDERS: PCP Internal Medicine; Referring Provider Internal Medicine; Visit Provider Surgery | DX: K64.9 Unspecified hemorrhoids (principal); Z86.010 Personal history of colon polyps | CPT/HCPCS: 99212 ==

== ENCOUNTER 2022-02-04 11:16 | Outpatient (REF) | payer OTHER, SELFPAY ==
[2022-02-04 14:27] LABS: Creatinine Urine 43.53 mg/dL; Microalbum/Creatinine Ratio Ur 351.4 ug/mg cr
== END 2022-02-04 11:17 | disposition home or self-care (01) ==
LOC: HO.LAB 11:16
PROVIDERS: PCP Internal Medicine; Visit Provider Nurse Practitioner Gerontology
DX: E11.65 Type 2 diabetes mellitus with hyperglycemia (principal); E55.9 Vitamin D deficiency, unspecified
CPT/HCPCS: 36415; 82043; 82306

== ENCOUNTER 2022-02-18 07:24 | Outpatient (REF) | payer OTHER, SELFPAY ==
[2022-02-18 07:42] LABS: MANUAL DIFF FLAG NO
[2022-02-18 08:06] LABS: Basophils Percent Auto 0.4 % (0-2); Eosinophils Absolute Auto 0.2 X10*3/uL (0.0-0.4); Eosinophils Percent Auto 2.5 % (0-4); Hematocrit 45.3 % (42.0-52.0); Hemoglobin 15.8 g/dl (14.0-18.0); Imm Gran Abs Auto 0.03 X10*3/uL (0.00-0.03); Imm Gran Pct Auto 0.4 % (0.0-0.4); Lymphocytes Absolute Auto 3.5 X10*3/uL (1.2-4.9); Lymphocytes Percent Auto 45.9 % (20-40); Mean Corpuscular HGB Conc 34.9 g/dl (31.0-36.0); Mean Corpuscular Hemoglobin 30.3 pg (27.0-33.0); Mean Corpuscular Volume 86.8 fL (80.0-98.0); Mean Platelet Volume 11.1 fL (9.4-12.4); Monocytes Absolute Auto 0.6 X10*3/uL (0.1-1.2); Monocytes Percent Auto 8.4 % (2-11); Neutrophils Absolute Auto 3.2 x10*3/uL (2.0-8.3); Neutrophils Percent Auto 42.4 % (45-73); Platelet Count 184 X10*3/uL (160-400); Red Blood Count 5.22 X10*6/uL (4.60-5.80); Red Cell Distribution Width 12.3 % (11.0-16.0); White Blood Count 7.6 X10*3/uL (4.8-10.8)
[2022-02-18 08:23] LABS: Hemoglobin A1c % > 14.0 %
[2022-02-18 08:28] LABS: Creatinine Urine 58.51 mg/dL; Microalbum/Creatinine Ratio Ur 100.8 ug/mg cr
[2022-02-18 08:33] LABS: HBS Num1 2.32 mIU/mL (0-7.99); HBc Num1 0.09 S/CO (0.00-0.79); HBsAGNum1 0.17 S/CO (0.00-0.99); HIV AB/AG Nonreactive (Nonreactive); HIV Num 1 0.07 S/CO (0.00-0.99); Hepatitis B Core Antibody Nonreactive (Nonreactive); Hepatitis B Surface Antigen Negative (Negative); ~HepC Num1 0.07 S/CO (0.00-0.79); ~Hepatitis B Surface Antibody NONREACTIVE (Nonreactive); ~Hepatitis C Antibody Nonreactive (Nonreactive)
[2022-02-18 08:36] LABS: Free T4 (Free Thyroxine) 1.06 ng/dL (0.71-1.85); Prostate Specific Antigen Scr 0.38 ng/mL (<0.05-4.0); Thyroid Stimulating Hormone 4.67 uIU/mL (0.32-4.0)
[2022-02-18 08:38] LABS: Alanine Aminotransferase 23 U/L (0-40); Albumin Level 4.2 g/dL (3.5-5.0); Alkaline Phosphatase 74 U/L (39-117); Anion Gap 16 (12-20); Aspartate Amino Transferase 16 U/L (5-37); Bilirubin Total 0.8 mg/dL (0.0-1.0); Blood Urea Nitrogen 13 mg/dL (9-16); Calcium 9.5 mg/dL (8.4-10.2); Carbon Dioxide 29 mmol/L (22-29); Chloride 94 mmol/L (96-108); Cholesterol 298 mg/dL; Estimated Glomerular Filt Rate > 60; Glucose Random 484 mg/dL (60-115); HDL Cholesterol 37 mg/dL; Potassium 4.3 mmol/L (3.3-5.1); Sodium 135 mmol/L (135-145); Triglycerides 501 mg/dL
[2022-02-18 08:46] LABS: Folate 15.2 ng/mL (> or = 4.0); Vitamin B12 701 pg/mL (200-900)
[2022-02-25 22:52] LABS: Treponema pallidum Ab FTA ABS Nonreactive (Nonreactive)
== END 2022-02-18 07:25 | disposition home or self-care (01) ==
LOC: HO.LAB 07:24
PROVIDERS: PCP Internal Medicine; Visit Provider Internal Medicine
DX: Z12.5 Encounter for screening for malignant neoplasm of prostate (principal); Z11.4 Encounter for screening for human immunodeficiency virus [HIV]; E11.65 Type 2 diabetes mellitus with hyperglycemia; E78.00 Pure hypercholesterolemia, unspecified; R79.89 Other specified abnormal findings of blood chemistry; Z20.2 Contact with and (suspected) exposure to infections with a predominantly sexual mode of transmission; Z79.4 Long term (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
CPT/HCPCS: 36415; 80053; 80061; 82043; 82607; 82746; 83036; 84153; 84439; 84443; 85025; 86704; 86706; 86780; 86803; 87340; 87389

== ENCOUNTER 2022-04-07 11:30 | Emergency (ER) | payer OTHER, MEDICAID, SELFPAY ==
--- NOTE | ~2022-04-07 | XR_ITS ---
EXAMINATION: XR CHEST CLINICAL INFORMATION: Shortness of breath COMPARISON: 05/27/2020 TECHNIQUE: 2 views of the chest were obtained. FINDINGS: Lungs are well-inflated and clear. No evidence of airspace disease, edema or pleural effusion. Cardiac silhouette is normal in size. The hilar contours are normal. The pulmonary vascular pattern is normal. The visualized skeletal structures and upper abdomen are unremarkable. XR/XR chest 2V IMPRESSION: No evidence of recurrent pneumonia. No acute cardiopulmonary disease.
--- NOTE | ~2022-04-07 | CT_ITS ---
EXAMINATION: CT ANGIOGRAM OF THE CHEST WITH AND WITHOUT CONTRAST (CT PULMONARY ANGIOGRAM FOR PE) CLINICAL INFORMATION: Reason for Exam CP, SOB, hx PE not on thinners COMPARISON: Chest radiograph earlier today, CT chest 02/06/2019 TECHNIQUE: Prior to contrast administration, noncontrast localization images were obtained. Subsequently, multidetector volumetric imaging was performed from the thoracic inlet to below the diaphragms following the administration of 65 mL Omnipaque 350 intravenous contrast. No contrast reaction reported Sagittal, coronal, and MIP oblique sagittal reformatted images were obtained on the CT workstation, uploaded to PACS, and reviewed. This CT examination was performed using dose optimization techniques as appropriate, variously including the following: *Automated exposure control *Adjustment of mA and/or kV according to patient size (this includes techniques or standardized protocols for targeted exams where dose is matched to indication/reason for exam; i.e. extremities or head) *Use of iterative reconstruction technique Total exam dose-length product 377 mGy-cm FINDINGS: QUALITY OF STUDY/CONTRAST BOLUS: Satisfactory. PULMONARY ARTERIES: No central or segmental pulmonary emboli. THORACIC AORTA: No aneurysm or dissection. LUNG: No focal consolidation, nodules or masses. Some nonspecific dependent groundglass changes are seen. PLEURA: No pleural effusion or pneumothorax. MEDIASTINUM: Normal heart size. No pericardial effusion. No hilar or mediastinal lymphadenopathy. No evidence of septal bowing or right heart strain. CHEST WALL/AXILLA: No axillary or internal mammary lymphadenopathy. OSSEOUS STRUCTURES: No acute or suspicious osseous abnormality. UPPER ABDOMEN: There is a 1.5 cm x 1 point nodule arising from the lateral limb of the left adrenal gland which measures 10 Hounsfield units even after IV contrast and most likely represents a benign adenoma. On a 08/24/2015 study, this measured 10 Hounsfield units but was smaller 1.0 x 0.8 cm. No reflux of contrast into the hepatic veins to suggest elevated right heart pressures. CT/CT angio chest PE protocol IMPRESSION: 1. No evidence of pulmonary emboli. 2. Incidental note made of a 1.5 cm probable left adrenal adenoma. VTE: negative
--- NOTE | 2022-04-07 11:32 | ECG_ITS ---
Test Reason : chest pain Blood Pressure : / mmHG Vent. Rate : 106 BPM Atrial Rate : 106 BPM P-R Int : 146 ms QRS Dur : 094 ms QT Int : 344 ms P-R-T Axes : 028 018 014 degrees QTc Int : 456 ms Sinus tachycardia Intra-ventricular conduction delay T-wave inversion in Inferior leads Abnormal ECG When compared with ECG of 27-MAY-2020 11:12, No significant change was found Referred By: Generic ED Physician Electronically Signed By:EM JOEL MD
[2022-04-07 11:33] VITALS: BP 144/101; PULSE 100; RESP 19; TEMP 36.6; O2SAT 98; BMI 31.3
[2022-04-07 15:01] LABS: MANUAL DIFF FLAG NO
[2022-04-07 15:02] LABS: Basophils Percent Auto 0.2 % (0-2); Eosinophils Absolute Auto 0.2 X10*3/uL (0.0-0.4); Eosinophils Percent Auto 1.9 % (0-4); Hematocrit 44.8 % (42.0-52.0); Hemoglobin 15.8 g/dl (14.0-18.0); Imm Gran Abs Auto 0.03 X10*3/uL (0.00-0.03); Imm Gran Pct Auto 0.3 % (0.0-0.4); Lymphocytes Absolute Auto 3.1 X10*3/uL (1.2-4.9); Lymphocytes Percent Auto 35.4 % (20-40); Mean Corpuscular HGB Conc 35.3 g/dl (31.0-36.0); Mean Platelet Volume 10.6 fL (9.4-12.4); Monocytes Absolute Auto 0.6 X10*3/uL (0.1-1.2); Monocytes Percent Auto 6.2 % (2-11); Platelet Count 189 X10*3/uL (160-400); Red Blood Count 5.09 X10*6/uL (4.60-5.80); Red Cell Distribution Width 12.6 % (11.0-16.0); White Blood Count 8.9 X10*3/uL (4.8-10.8)
[2022-04-07 15:08] LABS: Prothrombin Time 11.1 SEC (10.0-13.1)
[2022-04-07 15:20] LABS: Alanine Aminotransferase 24 U/L (0-40); Albumin Level 4.4 g/dL (3.5-5.0); Alkaline Phosphatase 75 U/L (39-117); Anion Gap 18 (12-20); Aspartate Amino Transferase 20 U/L (5-37); Bilirubin Total 0.5 mg/dL (0.0-1.0); Blood Urea Nitrogen 13 mg/dL (9-16); Carbon Dioxide 29 mmol/L (22-29); Chloride 94 mmol/L (96-108); Estimated Glomerular Filt Rate > 60; Glucose Random 348 mg/dL (60-115); Potassium 4.2 mmol/L (3.3-5.1); Sodium 137 mmol/L (135-145); Total Protein 8.2 g/dL (6.5-8.0)
[2022-04-07 15:26] LABS: Troponin-I High Sensitivity < 3.5 ng/L (<3.5-35.0)
[2022-04-07 15:31] LABS: COVID-19 Test Positive (Negative); IDNOW Serial# 9DB6401D
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
[2022-04-07] MEDS: Insulin Regular, Human 100 UNIT/ML 3 ML VIAL IVPUSH (21:21)
[2022-04-07] MEDS: 0.9 % Sodium Chloride 1,000 ML 999 ML IVCONT (21:24)
[2022-04-07] MEDS: Ibuprofen 600 MG TABLET PO (21:25)
[2022-04-07 21:29] LABS: D Dimer High Sensitivity < 150 NG/ML
[2022-04-07] MEDS: iohexoL 350 MG/ML 100 ML INFUS..BTL IV (22:14)
[2022-04-07 23:13] LABS: Glucose, Whole Blood 210 mg/dL (60-115)
== END 2022-04-07 23:47 | disposition home or self-care (01) ==
PROVIDERS: Student in an Organized Health Care Education/Training Program; Emergency Provider Emergency Medicine; PCP Internal Medicine
DX: R07.89 Other chest pain (principal); R06.02 Shortness of breath; Z20.822 Contact with and (suspected) exposure to COVID-19; Z79.899 Other long term (current) drug therapy
CPT/HCPCS: 71046; 71275; 80053; 82947; 84484; 85025; 85379; 85610; 87635; 93005; 96361; 96374; 99284; Q9967

== ENCOUNTER 2022-04-14 14:21 | Emergency (ER) | payer OTHER, MEDICAID, SELFPAY ==
[2022-04-14 15:51] VITALS: BP 125/87; PULSE 120; RESP 18; TEMP 36.7; O2SAT 98; BMI 31.3
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
--- NOTE | 2022-04-14 15:53 | PC.NURSE ---
04/07 ct with iv contrast
[2022-04-14 16:27] LABS: MANUAL DIFF FLAG NO
[2022-04-14 16:28] LABS: Basophils Percent Auto 0.2 % (0-2); Eosinophils Absolute Auto 0.4 X10*3/uL (0.0-0.4); Eosinophils Percent Auto 3.9 % (0-4); Hematocrit 46.7 % (42.0-52.0); Hemoglobin 15.3 g/dl (14.0-18.0); Imm Gran Abs Auto 0.03 X10*3/uL (0.00-0.03); Imm Gran Pct Auto 0.3 % (0.0-0.4); Lymphocytes Absolute Auto 2.2 X10*3/uL (1.2-4.9); Lymphocytes Percent Auto 21.8 % (20-40); Mean Corpuscular HGB Conc 32.8 g/dl (31.0-36.0); Mean Corpuscular Hemoglobin 30.3 pg (27.0-33.0); Mean Corpuscular Volume 92.5 fL (80.0-98.0); Monocytes Absolute Auto 0.6 X10*3/uL (0.1-1.2); Monocytes Percent Auto 5.5 % (2-11); Neutrophils Absolute Auto 6.8 x10*3/uL (2.0-8.3); Neutrophils Percent Auto 68.3 % (45-73); Platelet Count 162 X10*3/uL (160-400); Red Blood Count 5.05 X10*6/uL (4.60-5.80); Red Cell Distribution Width 13.2 % (11.0-16.0); White Blood Count 9.9 X10*3/uL (4.8-10.8)
[2022-04-14 16:48] LABS: Anion Gap 19 (12-20); Blood Urea Nitrogen 31 mg/dL (9-16); Calcium 9.6 mg/dL (8.4-10.2); Carbon Dioxide 25 mmol/L (22-29); Chloride 97 mmol/L (96-108); Creatinine Clr Calc Pharmacy 64.2; Estimated Glomerular Filt Rate 53; Glucose Random 392 mg/dL (60-115); Potassium 5.4 mmol/L (3.3-5.1); Sodium 136 mmol/L (135-145)
[2022-04-14 20:13] VITALS: BP 116/76; PULSE 106; RESP 18; TEMP 36.6; O2SAT 98
[2022-04-14 20:24] LABS: Glucose, Whole Blood 189 mg/dL (60-115)
[2022-04-14 22:16] VITALS: BP 129/81; PULSE 101; TEMP 36.4; O2SAT 98
[2022-04-14] MEDS: diphenhydrAMINE HCL 50 MG/ML VIAL IVPUSH (22:26)
[2022-04-14] MEDS: 0.9 % Sodium Chloride 500 ML 999 ML IV (22:27)
[2022-04-14 22:37] LABS: Glucose, Whole Blood 102 mg/dL (60-115)
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
--- NOTE | 2022-04-14 22:43 | PC.NURSE ---
Pt reports taking insulin in waiting room. Pt POC BG is 102, MD notified. Pt given OJ and crackers.
[2022-04-14 22:56] LABS: Appearance Urine Clear; Color Urine Yellow; Glucose Urine UA >=1000 mg/dL (Negative); Leukocyte Esterase Urine Negative (Negative); Nitrite Urine Negative (Negative); Specific Gravity - Urine >= 1.030 (1.005-1.025); UMIC TRIGGER UACC YES; Urine Blood Negative (Negative); Urine Ketones Negative (Negative); Urine Protein Negative (Neg-Trace)
[2022-04-14 23:06] LABS: Bacteria Urine None Seen (None Seen); Hyaline Casts Urine 0-2 /LPF (0-2); RBC Urine 0-2 /HPF (0-2); Squamous Epithelial Cell Urine 0-2 /HPF (0-2); WBC Urine 0-5 /HPF (0-5)
[2022-04-15 00:37] LABS: Glucose, Whole Blood 152 mg/dL (60-115)
[2022-04-15 00:43] VITALS: BP 117/59; PULSE 75; RESP 16; TEMP 36.4; O2SAT 96
== END 2022-04-15 00:44 | disposition home or self-care (01) ==
PROVIDERS: Emergency Medicine; Emergency Provider Emergency Medicine; PCP Internal Medicine
DX: R21 Rash and other nonspecific skin eruption (principal); E11.9 Type 2 diabetes mellitus without complications; I10 Essential (primary) hypertension; E78.00 Pure hypercholesterolemia, unspecified; Z79.4 Long term (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; Z79.02 Long term (current) use of antithrombotics/antiplatelets; Z79.899 Other long term (current) drug therapy
CPT/HCPCS: 36415; 80048; 81001; 82947; 85025; 96374; 99284; J1200

== ENCOUNTER 2022-04-17 11:29 | Outpatient (REF) | payer OTHER, SELFPAY ==
[2022-04-17 13:00] LABS: COVID-19 Test Negative (Negative)
== END 2022-04-17 11:30 | disposition home or self-care (01) ==
LOC: HO.LAB 11:29
PROVIDERS: Visit Provider Internal Medicine
DX: Z20.822 Contact with and (suspected) exposure to COVID-19 (principal)
CPT/HCPCS: 87635; C9803

== ENCOUNTER → 2022-04-18 07:58 | Outpatient (BNVA) | payer OTHER, MEDICAID, SELFPAY | PROVIDERS: PCP Internal Medicine; Visit Provider Internal Medicine Endocrinology, Diabetes & Metabolism | DX: E11.65 Type 2 diabetes mellitus with hyperglycemia (principal); Z79.4 Long term (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 | CPT/HCPCS: 82947; 99212 ==

== ENCOUNTER 2022-05-20 11:38 | Outpatient (REF) | payer OTHER, SELFPAY ==
[2022-05-20 11:59] LABS: MANUAL DIFF FLAG NO
[2022-05-20 12:32] LABS: Basophils Percent Auto 0.3 % (0-2); Eosinophils Absolute Auto 0.5 X10*3/uL (0.0-0.4); Eosinophils Percent Auto 5.3 % (0-4); Hematocrit 48.5 % (42.0-52.0); Hemoglobin 16.3 g/dl (14.0-18.0); Imm Gran Abs Auto 0.02 X10*3/uL (0.00-0.03); Imm Gran Pct Auto 0.2 % (0.0-0.4); Lymphocytes Absolute Auto 2.8 X10*3/uL (1.2-4.9); Lymphocytes Percent Auto 31.4 % (20-40); Mean Corpuscular HGB Conc 33.6 g/dl (31.0-36.0); Mean Corpuscular Hemoglobin 30.8 pg (27.0-33.0); Mean Corpuscular Volume 91.7 fL (80.0-98.0); Mean Platelet Volume 10.6 fL (9.4-12.4); Monocytes Absolute Auto 0.5 X10*3/uL (0.1-1.2); Monocytes Percent Auto 5.7 % (2-11); Neutrophils Percent Auto 57.1 % (45-73); Platelet Count 213 X10*3/uL (160-400); Red Blood Count 5.29 X10*6/uL (4.60-5.80); Red Cell Distribution Width 12.7 % (11.0-16.0); White Blood Count 8.8 X10*3/uL (4.8-10.8)
[2022-05-20 13:17] LABS: Erythrocyte Sedimentation Rate 16 MM/HR (0-15)
[2022-05-20 13:33] LABS: Alanine Aminotransferase 21 U/L (0-40); Albumin Level 4.7 g/dL (3.5-5.0); Alkaline Phosphatase 74 U/L (39-117); Anion Gap 19 (12-20); Aspartate Amino Transferase 19 U/L (5-37); Bilirubin Total 0.7 mg/dL (0.0-1.0); Blood Urea Nitrogen 22 mg/dL (9-16); C Reactive Protein 0.35 mg/dL (< or = 0.50); Calcium 10.2 mg/dL (8.4-10.2); Carbon Dioxide 25 mmol/L (22-29); Chloride 101 mmol/L (96-108); Cholesterol 186 mg/dL; Estimated Glomerular Filt Rate > 60; Free T4 (Free Thyroxine) 0.83 ng/dL (0.71-1.85); Glucose Random 313 mg/dL (60-115); HDL Cholesterol 61 mg/dL; LDL Cholesterol Calculated 58 mg/dl; Potassium 4.8 mmol/L (3.3-5.1); Sodium 140 mmol/L (135-145); Thyroid Stimulating Hormone 1.34 uIU/mL (0.32-4.0); Total Protein 8.2 g/dL (6.5-8.0); Triglycerides 336 mg/dL
[2022-05-22 09:14] LABS: Lyme Abs Screen <0.90 index
== END 2022-05-20 11:39 | disposition home or self-care (01) ==
LOC: HO.LAB 11:38
PROVIDERS: PCP Internal Medicine; Visit Provider Internal Medicine
DX: E11.65 Type 2 diabetes mellitus with hyperglycemia (principal); M54.50 Low back pain, unspecified; E78.00 Pure hypercholesterolemia, unspecified; Z79.4 Long term (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
CPT/HCPCS: 36415; 80053; 80061; 84439; 84443; 85025; 85652; 86140; 86617; 86618; 99211

== ENCOUNTER 2022-06-06 19:19 | Outpatient (REF) | payer OTHER, SELFPAY ==
[2022-06-06 20:10] LABS: Influenza A PCR POSITIVE (Negative); Influenza B PCR NEGATIVE (Negative); Resp Syncy Virus RNA Qual PCR NEGATIVE (Negative); SARS COV2 PCR INHOUSE NEGATIVE (Negative)
== END 2022-06-06 19:20 | disposition home or self-care (01) ==
LOC: HO.LNP 19:19
PROVIDERS: Visit Provider Physician Assistant Medical
DX: Z20.822 Contact with and (suspected) exposure to COVID-19 (principal); R05.9 Cough, unspecified
CPT/HCPCS: 0241U

== ENCOUNTER → 2022-06-17 09:57 | Outpatient (BNVA) | payer OTHER, SELFPAY | PROVIDERS: PCP Internal Medicine; Visit Provider Registered Nurse Diabetes Educator | DX: E11.3293 Type 2 diabetes mellitus with mild nonproliferative diabetic retinopathy without macular edema, bilateral (principal) | CPT/HCPCS: 99211 ==

== ENCOUNTER 2022-07-09 13:58 | Outpatient (REF) | payer OTHER, SELFPAY ==
--- NOTE | ~2022-07-09 | US_ITS ---
EXAMINATION: ULTRASOUND ARTERIAL DUPLEX LOWER EXTREMITY RIGHT CLINICAL INFORMATION: Peripheral vascular disease. COMPARISON: None TECHNIQUE: Grayscale, color Doppler, spectral Doppler was performed of the right lower extremity arterial system. FINDINGS: Common femoral: PSV 66 cm/s. Triphasic waveform. Deep femoral: PSV 46 cm/s. Triphasic waveform. Proximal superficial femoral: PSV 70 cm/s. Triphasic waveform. Mid superficial femoral: PSV 48 cm/s. Triphasic waveform. Distal superficial femoral: PSV 44 cm/s. Triphasic waveform. Popliteal: PSV 33 cm/s. Triphasic waveform. Posterior tibial: PSV 44 cm/s. Triphasic waveform. Peroneal: PSV 35 cm/s. Triphasic waveform. US/US arterial duplex LE RT IMPRESSION: Normal waveforms throughout the right lower extremity arteries. No evidence of hemodynamically significant peripheral arterial disease.
== END 2022-07-09 13:59 | disposition home or self-care (01) ==
LOC: HO.US 13:58
PROVIDERS: Visit Provider Internal Medicine
DX: I73.9 Peripheral vascular disease, unspecified (principal)
CPT/HCPCS: 93926

== ENCOUNTER → 2022-07-22 10:51 | Outpatient (BNVA) | payer OTHER, SELFPAY | PROVIDERS: PCP Internal Medicine; Visit Provider Internal Medicine Endocrinology, Diabetes & Metabolism | DX: E11.65 Type 2 diabetes mellitus with hyperglycemia (principal); Z79.4 Long term (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 | CPT/HCPCS: 82947; 99212 ==

== ENCOUNTER 2022-09-18 09:00 | Outpatient (REF) | payer OTHER, SELFPAY ==
[2022-09-18 09:49] LABS: Alanine Aminotransferase 27 U/L (0-40); Albumin Level 4.4 g/dL (3.5-5.0); Alkaline Phosphatase 42 U/L (39-117); Anion Gap 15 (12-20); Aspartate Amino Transferase 23 U/L (5-37); Bilirubin Total 0.7 mg/dL (0.0-1.0); Blood Urea Nitrogen 25 mg/dL (9-16); Calcium 9.6 mg/dL (8.4-10.2); Carbon Dioxide 23 mmol/L (22-29); Chloride 108 mmol/L (96-108); Estimated Glomerular Filt Rate > 60; Glucose Random 199 mg/dL (60-115); Potassium 4.7 mmol/L (3.3-5.1); Sodium 141 mmol/L (135-145); Total Protein 7.6 g/dL (6.5-8.0)
[2022-09-18 10:07] LABS: Creatinine Urine 76.47 mg/dL
== END 2022-09-18 09:01 | disposition home or self-care (01) ==
LOC: HO.LAB 09:00
PROVIDERS: PCP Internal Medicine; Visit Provider Internal Medicine
DX: M54.50 Low back pain, unspecified (principal)
CPT/HCPCS: 36415; 80053

== ENCOUNTER 2022-09-29 08:23 | Outpatient (REF) | payer OTHER, SELFPAY ==
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
--- NOTE | ~2022-09-29 | XR_ITS ---
EXAMINATION: XR KNEE, BILATERAL CLINICAL INFORMATION: Pain. COMPARISON: Left femur x-ray June 2015. TECHNIQUE: AP standing view of both knees and lateral and sunrise view of the right knee. FINDINGS: Right Knee: No acute fracture or dislocation. There is question of old trauma to the lateral tibial plateau. There is severe tricompartment arthritis. There is ossification or calcification at the medial knee suggestive of old trauma to the medial collateral ligament. There is a small joint effusion. There are cortical excrescences projecting toward the knee joint in the distal femoral shaft and proximal tibial shaft representing tug lesions. Left Knee: AP view of the left knee demonstrates intramedullary nunu and 2 screws in the distal femoral shaft. This appears unchanged from previous exam. Knee joint is unremarkable.. XR/XR knee standing BI IMPRESSION: RIGHT KNEE: Probable old trauma to the lateral tibial plateau and medial collateral ligament. Severe tricompartment arthritis. LEFT KNEE: Orthopedic hardware in the distal femoral shaft.
== END 2022-09-29 08:24 | disposition home or self-care (01) ==
LOC: HO.HOSX 08:23
PROVIDERS: Visit Provider Orthopaedic Surgery
DX: M17.31 Unilateral post-traumatic osteoarthritis, right knee (principal); M21.371 Foot drop, right foot; E11.65 Type 2 diabetes mellitus with hyperglycemia; Z87.81 Personal history of (healed) traumatic fracture; Z79.4 Long term (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
CPT/HCPCS: 73560; 73565; 99202

== ENCOUNTER → 2022-10-14 09:15 | Outpatient (BNVA) | payer OTHER, SELFPAY | PROVIDERS: PCP Internal Medicine; Visit Provider Registered Nurse Diabetes Educator | DX: E11.65 Type 2 diabetes mellitus with hyperglycemia (principal); E11.42 Type 2 diabetes mellitus with diabetic polyneuropathy; E11.3293 Type 2 diabetes mellitus with mild nonproliferative diabetic retinopathy without macular edema, bilateral; Z79.4 Long term (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 | CPT/HCPCS: 99211 ==

== ENCOUNTER → 2022-10-24 09:37 | Outpatient (BNVA) | payer OTHER, SELFPAY | PROVIDERS: PCP Internal Medicine; Visit Provider Internal Medicine Endocrinology, Diabetes & Metabolism | DX: E11.65 Type 2 diabetes mellitus with hyperglycemia (principal); Z79.4 Long term (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 | CPT/HCPCS: 82947; 99212 ==

== ENCOUNTER → 2022-11-20 09:07 | Outpatient (BNVA) | payer OTHER, SELFPAY | PROVIDERS: PCP Internal Medicine; Visit Provider Dietitian, Registered | DX: E11.65 Type 2 diabetes mellitus with hyperglycemia (principal); Z79.4 Long term (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 | CPT/HCPCS: 97802 ==

== ENCOUNTER → 2022-12-03 08:51 | Outpatient (BNVA) | payer OTHER, SELFPAY | PROVIDERS: PCP Internal Medicine; Visit Provider Registered Nurse Diabetes Educator | DX: E11.65 Type 2 diabetes mellitus with hyperglycemia (principal); E11.42 Type 2 diabetes mellitus with diabetic polyneuropathy; E11.319 Type 2 diabetes mellitus with unspecified diabetic retinopathy without macular edema; Z79.4 Long term (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 | CPT/HCPCS: 99211 ==

== ENCOUNTER 2022-12-19 09:34 | Outpatient (AMB) | payer OTHER, SELFPAY ==
[2022-12-19 09:45] VITALS: BP 118/72; PULSE 85; O2SAT 95; BMI 35.5
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
== END 2022-12-19 10:25 | disposition home or self-care (01) ==
LOC: HO.HMGH 09:34
PROVIDERS: PCP Internal Medicine; Visit Provider Internal Medicine
DX: I10 Essential (primary) hypertension (principal); E78.00 Pure hypercholesterolemia, unspecified; E11.65 Type 2 diabetes mellitus with hyperglycemia; K21.9 Gastro-esophageal reflux disease without esophagitis; Z79.4 Long term (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; E66.9 Obesity, unspecified; M17.31 Unilateral post-traumatic osteoarthritis, right knee; M21.371 Foot drop, right foot; Z13.9 Encounter for screening, unspecified
CPT/HCPCS: 83036; 99214

== ENCOUNTER 2023-01-15 11:06 | Outpatient (REF) | payer OTHER, SELFPAY ==
--- NOTE | ~2023-01-15 | US_ITS ---
EXAMINATION: US PELVIS LIMITED (BLADDER) CLINICAL INFORMATION: Unspecified urinary incontinence. COMPARISON: Ultrasound retroperitoneal limited (renal only) 04/12/2019 TECHNIQUE: Real-time imaging of the bladder. FINDINGS: BLADDER: Well distended and normal. Left ureteral jet is demonstrated; right is not. Prevoid bladder volume is 187 mL. Postvoid bladder volume is 45.3 mL. ADDITIONAL FINDINGS: Prostate volume is 24.5 mL which is normal in size. US/US bladder IMPRESSION: 1. Small postvoid bladder residual of 45.3 mL. 2. Prostate is normal in size.
== END 2023-01-15 11:07 | disposition home or self-care (01) ==
LOC: HO.US 11:06
PROVIDERS: PCP Internal Medicine; Visit Provider Internal Medicine
DX: R32 Unspecified urinary incontinence (principal)
CPT/HCPCS: 76857

== ENCOUNTER 2023-02-03 09:50 | Outpatient (AMB) | payer OTHER, SELFPAY ==
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
== END 2023-02-03 10:42 | disposition home or self-care (01) ==
PROVIDERS: PCP Internal Medicine; Visit Provider Nurse Practitioner Family
DX: R32 Unspecified urinary incontinence (principal)
CPT/HCPCS: 99204

== ENCOUNTER 2023-02-03 09:50 | Outpatient (REF) | payer OTHER, SELFPAY ==
[2023-02-03 11:05] LABS: MANUAL DIFF FLAG NO
[2023-02-03 11:26] LABS: Basophils Percent Auto 0.3 % (0-2); Eosinophils Absolute Auto 0.2 X10*3/uL (0.0-0.4); Eosinophils Percent Auto 2.2 % (0-4); Hematocrit 45.8 % (42.0-52.0); Hemoglobin 15.2 g/dl (14.0-18.0); Imm Gran Abs Auto 0.02 X10*3/uL (0.00-0.03); Imm Gran Pct Auto 0.3 % (0.0-0.4); Lymphocytes Absolute Auto 2.7 X10*3/uL (1.2-4.9); Lymphocytes Percent Auto 34.4 % (20-40); Mean Corpuscular HGB Conc 33.2 g/dl (31.0-36.0); Mean Corpuscular Hemoglobin 30.3 pg (27.0-33.0); Mean Corpuscular Volume 91.2 fL (80.0-98.0); Mean Platelet Volume 10.6 fL (9.4-12.4); Monocytes Absolute Auto 0.5 X10*3/uL (0.1-1.2); Monocytes Percent Auto 6.8 % (2-11); Neutrophils Absolute Auto 4.4 x10*3/uL (2.0-8.3); Platelet Count 247 X10*3/uL (160-400); Red Blood Count 5.02 X10*6/uL (4.60-5.80); White Blood Count 7.8 X10*3/uL (4.8-10.8)
[2023-02-03 12:32] LABS: Alanine Aminotransferase 25 U/L (0-40); Albumin Level 4.2 g/dL (3.5-5.0); Alkaline Phosphatase 44 U/L (39-117); Anion Gap 12 (12-20); Aspartate Amino Transferase 23 U/L (5-37); Bilirubin Total 0.4 mg/dL (0.0-1.0); Blood Urea Nitrogen 19 mg/dL (9-16); Calcium 9.5 mg/dL (8.4-10.2); Carbon Dioxide 26 mmol/L (22-29); Chloride 107 mmol/L (96-108); Estimated Glomerular Filt Rate > 60; Glucose Random 164 mg/dL (60-115); Potassium 4.4 mmol/L (3.3-5.1); Sodium 141 mmol/L (135-145); Total Protein 7.9 g/dL (6.5-8.0)
[2023-02-03 12:36] LABS: Appearance Urine Clear; Color Urine Yellow; Glucose Urine UA 100 mg/dL (Negative); Leukocyte Esterase Urine Negative (Negative); Nitrite Urine Negative (Negative); PH 6.5 (5.0-9.0); Specific Gravity - Urine >= 1.030 (1.005-1.025); Urine Blood Negative (Negative); Urine Ketones Trace mg/dL (Negative); Urine Protein Trace mg/dL (Neg-Trace)
[2023-02-03 12:39] LABS: Bacteria Urine None Seen (None Seen); Hyaline Casts Urine 0-2 /LPF (0-2); RBC Urine 0-2 /HPF (0-2); Squamous Epithelial Cell Urine 0-2 /HPF (0-2); WBC Urine 0-5 /HPF (0-5)
[2023-02-03 12:42] LABS: Free T4 (Free Thyroxine) 0.92 ng/dL (0.71-1.85)
[2023-02-03 12:51] LABS: Folate 12.8 ng/mL (> or = 4.0); Prostate Specific Antigen Scr 0.51 ng/mL (<0.05-4.0); Vitamin B12 974 pg/mL (200-900)
[2023-02-03 13:03] LABS: Creatinine Urine 254.58 mg/dL; Microalbum/Creatinine Ratio Ur 7.8 ug/mg cr (<30)
== END 2023-02-03 09:51 | disposition home or self-care (01) ==
LOC: HO.LAB 09:50
PROVIDERS: Absent Provider Internal Medicine; PCP Internal Medicine; Visit Provider Nurse Practitioner Family
DX: R32 Unspecified urinary incontinence (principal); N40.0 Benign prostatic hyperplasia without lower urinary tract symptoms; R35.0 Frequency of micturition; E11.65 Type 2 diabetes mellitus with hyperglycemia; I10 Essential (primary) hypertension; Z79.899 Other long term (current) drug therapy; Z79.4 Long term (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; Z86.711 Personal history of pulmonary embolism; Z12.5 Encounter for screening for malignant neoplasm of prostate
CPT/HCPCS: 36415; 51798; 80053; 81001; 81003; 82043; 82607; 82746; 84153; 84439; 84443; 85025; 99202

== ENCOUNTER 2023-02-12 09:14 | Outpatient (AMB) | payer OTHER, SELFPAY ==
[2023-02-12 09:31] VITALS: BMI 36.3
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
== END 2023-02-12 10:41 | disposition home or self-care (01) ==
PROVIDERS: PCP Internal Medicine; Visit Provider Dietitian, Registered
DX: E11.65 Type 2 diabetes mellitus with hyperglycemia (principal); Z79.4 Long term (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

== ENCOUNTER → 2023-02-12 09:14 | Outpatient (BNVA) | payer OTHER, SELFPAY | PROVIDERS: PCP Internal Medicine; Visit Provider Dietitian, Registered | DX: E11.65 Type 2 diabetes mellitus with hyperglycemia (principal); Z79.4 Long term (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 | CPT/HCPCS: 97803 ==

== ENCOUNTER 2023-02-25 08:21 | Outpatient (AMB) | payer OTHER, SELFPAY ==
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
[2023-02-25 08:24] VITALS: BP 148/100; PULSE 80; BMI 35.9
[2023-02-25 08:38] LABS: Glucose, Whole Blood 207 mg/dL (60-115)
== END 2023-02-25 09:06 | disposition home or self-care (01) ==
PROVIDERS: PCP Internal Medicine; Visit Provider Internal Medicine Endocrinology, Diabetes & Metabolism
DX: E11.65 Type 2 diabetes mellitus with hyperglycemia (principal); Z79.4 Long term (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
CPT/HCPCS: 99214

== ENCOUNTER → 2023-02-25 08:21 | Outpatient (BNVA) | payer OTHER, SELFPAY | PROVIDERS: Visit Provider Internal Medicine Endocrinology, Diabetes & Metabolism | DX: E11.65 Type 2 diabetes mellitus with hyperglycemia (principal); Z79.4 Long term (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 | CPT/HCPCS: 82947; 99212 ==

== ENCOUNTER 2023-03-17 10:01 | Emergency (ER) | payer OTHER, SELFPAY ==
[2023-03-17 11:05] VITALS: BP 160/101; PULSE 77; RESP 19; TEMP 36.1; O2SAT 96; BMI 36.5
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
--- NOTE | 2023-03-17 13:40 | PC.NURSE ---
short posterior splint applied to right foot/leg, pt tolerated well.
== END 2023-03-17 14:00 | disposition home or self-care (01) ==
PROVIDERS: Emergency Provider Student in an Organized Health Care Education/Training Program; PCP Internal Medicine
DX: S92.351A Displaced fracture of fifth metatarsal bone, right foot, initial encounter for closed fracture (principal); M79.671 Pain in right foot; X58.XXXA Exposure to other specified factors, initial encounter; Y93.9 Activity, unspecified; Y92.9 Unspecified place or not applicable; Y99.9 Unspecified external cause status; Z79.899 Other long term (current) drug therapy
CPT/HCPCS: 29515; 73610; 73630; 99282; 99284

== ENCOUNTER 2023-03-23 09:28 | Outpatient (REF) | payer OTHER, SELFPAY ==
[2023-03-23 12:44] LABS: Cholesterol 253 mg/dL (<200); HDL Cholesterol 50 mg/dL (>40); LDL Cholesterol Calculated 169 mg/dL (<100); Triglycerides 171 mg/dL (<150)
[2023-03-23 13:19] LABS: Prostate Specific Antigen 0.51 ng/mL (<0.05-4.0)
[2023-03-23 13:21] LABS: Creatinine Urine 241.61 mg/dL
== END 2023-03-23 09:29 | disposition home or self-care (01) ==
LOC: HO.LAB 09:28
PROVIDERS: Nurse Practitioner Family; Absent Provider Internal Medicine; PCP Internal Medicine; Referring Provider Nurse Practitioner Family; Visit Provider Physician Assistant
DX: Z12.5 Encounter for screening for malignant neoplasm of prostate (principal); N40.0 Benign prostatic hyperplasia without lower urinary tract symptoms; E11.65 Type 2 diabetes mellitus with hyperglycemia; R32 Unspecified urinary incontinence; E78.00 Pure hypercholesterolemia, unspecified; S92.514A Nondisplaced fracture of proximal phalanx of right lesser toe(s), initial encounter for closed fracture
CPT/HCPCS: 36415; 80061; 82570; 84153

== ENCOUNTER 2023-03-23 09:28 | Outpatient (AMB) | payer OTHER, SELFPAY ==
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
[2023-03-23 09:45] VITALS: BMI 36.5
== END 2023-03-23 11:20 | disposition home or self-care (01) ==
PROVIDERS: PCP Internal Medicine; Visit Provider Physician Assistant
DX: S92.351A Displaced fracture of fifth metatarsal bone, right foot, initial encounter for closed fracture (principal)
CPT/HCPCS: 99203

== ENCOUNTER 2023-03-24 09:42 | Outpatient (AMB) | payer OTHER, SELFPAY ==
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
== END 2023-03-24 10:45 | disposition home or self-care (01) ==
PROVIDERS: PCP Internal Medicine; Visit Provider Nurse Practitioner Family
DX: R32 Unspecified urinary incontinence (principal); R35.0 Frequency of micturition
CPT/HCPCS: 99214

== ENCOUNTER → 2023-03-24 09:42 | Outpatient (BNVA) | payer OTHER, SELFPAY | PROVIDERS: PCP Internal Medicine; Visit Provider Nurse Practitioner Family | DX: R32 Unspecified urinary incontinence (principal); R35.0 Frequency of micturition | CPT/HCPCS: 51798; 81003; 99212 ==

== ENCOUNTER 2023-05-05 09:57 | Outpatient (AMB) | payer OTHER, SELFPAY ==
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
== END 2023-05-05 10:58 | disposition home or self-care (01) ==
PROVIDERS: PCP Internal Medicine; Visit Provider Nurse Practitioner Family
DX: R32 Unspecified urinary incontinence (principal); R35.0 Frequency of micturition
CPT/HCPCS: 99213

== ENCOUNTER → 2023-05-05 09:57 | Outpatient (BNVA) | payer OTHER, SELFPAY | PROVIDERS: PCP Internal Medicine; Visit Provider Nurse Practitioner Family | DX: R32 Unspecified urinary incontinence (principal); R35.0 Frequency of micturition | CPT/HCPCS: 51798; 99212 ==

== ENCOUNTER 2023-06-02 10:45 | Outpatient (AMB) | payer OTHER, SELFPAY ==
[2023-06-02 10:49] VITALS: BP 160/100; PULSE 90; O2SAT 99; BMI 36.8
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
[2023-06-02 11:32] VITALS: BP 134/90
== END 2023-06-02 11:59 | disposition home or self-care (01) ==
PROVIDERS: Visit Provider Internal Medicine
DX: Z00.00 Encounter for general adult medical examination without abnormal findings (principal); M21.371 Foot drop, right foot; E11.65 Type 2 diabetes mellitus with hyperglycemia; Z79.4 Long term (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; I10 Essential (primary) hypertension; E78.00 Pure hypercholesterolemia, unspecified; K21.9 Gastro-esophageal reflux disease without esophagitis; E66.9 Obesity, unspecified; B37.0 Candidal stomatitis
CPT/HCPCS: 83036; 99396

== ENCOUNTER 2023-08-05 10:26 | Outpatient (AMB) | payer OTHER, SELFPAY ==
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
== END 2023-08-05 11:16 | disposition home or self-care (01) ==
PROVIDERS: PCP Internal Medicine; Visit Provider Nurse Practitioner Family
DX: R32 Unspecified urinary incontinence (principal); R35.0 Frequency of micturition; E11.69 Type 2 diabetes mellitus with other specified complication; N52.1 Erectile dysfunction due to diseases classified elsewhere
CPT/HCPCS: 99213

== ENCOUNTER → 2023-08-05 10:26 | Outpatient (BNVA) | payer OTHER, SELFPAY | PROVIDERS: PCP Internal Medicine; Visit Provider Nurse Practitioner Family | DX: R32 Unspecified urinary incontinence (principal); R35.0 Frequency of micturition; E11.69 Type 2 diabetes mellitus with other specified complication; N52.1 Erectile dysfunction due to diseases classified elsewhere | CPT/HCPCS: 51798; 81003; 99212 ==

== ENCOUNTER 2023-08-14 09:01 | Outpatient (REF) | payer OTHER, SELFPAY ==
--- NOTE | ~2023-08-14 | FL_ITS ---
EXAMINATION: XR FLUOROSCOPY UPPER GI WITH AIR CLINICAL INFORMATION: Dysphagia. Reflux COMPARISON: None TECHNIQUE: Fluoroscopic air contrast upper GI examination was performed utilizing standard techniques with thin and thick barium and effervescent granules. Numerous spot images were obtained. FINDINGS: Lateral cine images of the oropharynx and hypopharynx demonstrate normal swallow mechanism with normal epiglottic inversion and soft palate elevation. No tracheal penetration, glottic or subglottic aspiration identified. No nasopharyngeal reflux present. Hypopharyngeal structures appear normal without evidence of mass or diverticulum. There was no significant cricopharyngeal achalasia. Dual and single contrast images of the esophagus demonstrate normal caliber, contour, and mucosal pattern. No evidence of stricture, mass, or ulcerations identified. There is to and fro motion of the barium column with nonpropulsive tertiary contractions noted throughout the esophagus. No evidence of hiatus hernia identified. No significant gastroesophageal reflux was seen during the course of the examination and on reflux views. Dual contrast and single contrast images of the stomach demonstrated a normal contour. The gastric mucosal folds appear thickened. There are multiple tiny areas of contrast pooling in the fundus and body of the stomach that may represents small superficial ulcers. No masses are seen. Contrast freely passed into the gastric antrum and duodenal bulb without delay. Single and air-contrast images of the duodenal bulb demonstrate no abnormality. The duodenal sweep has a normal appearance, course, and mucosal fold appearance. The imaged proximal jejunum has a normal fold pattern and caliber. FLUOROSCOPY TIME: 4 minutes 28 seconds Number of Spot Images: 12 Number of Cine: 10 DOSE AREA PRODUCT: 4272 uGy-m2 (microgray-meter squared) FL/FL upper GI w air w Ba Swallow IMPRESSION: 1. To and fro motion of the barium column with nonpropulsive tertiary contractions throughout the esophagus consistent with esophageal dysmotility. 2. Significant gastric mucosal folds with multiple tiny areas of contrast pooling in the fundus and body the stomach. These findings suggest erosive gastritis. Recommend correlation with EGD. This procedure was performed by Bandar Lovell PA-C, and supervised by Dr. Bravo
== END 2023-08-14 09:02 | disposition home or self-care (01) ==
LOC: HO.XRAY 09:01
PROVIDERS: PCP Internal Medicine; Visit Provider Internal Medicine
DX: R13.10 Dysphagia, unspecified (principal); K21.9 Gastro-esophageal reflux disease without esophagitis
CPT/HCPCS: 74246

== ENCOUNTER → 2023-08-14 09:04 | Outpatient (BNV) | payer OTHER, SELFPAY | PROVIDERS: PCP Internal Medicine; Visit Provider Physician Assistant Surgical | DX: R13.10 Dysphagia, unspecified (principal); K21.9 Gastro-esophageal reflux disease without esophagitis | CPT/HCPCS: 74246 ==

== ENCOUNTER 2023-09-02 09:51 | Outpatient (AMB) | payer OTHER, SELFPAY ==
[2023-09-02 09:54] VITALS: BP 120/78; PULSE 90; O2SAT 98; BMI 36.6
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
== END 2023-09-02 10:46 | disposition home or self-care (01) ==
PROVIDERS: PCP Internal Medicine; Visit Provider Internal Medicine
DX: E11.65 Type 2 diabetes mellitus with hyperglycemia (principal); Z79.4 Long term (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; K21.9 Gastro-esophageal reflux disease without esophagitis; K29.60 Other gastritis without bleeding; M21.371 Foot drop, right foot; E66.9 Obesity, unspecified; I10 Essential (primary) hypertension; E78.00 Pure hypercholesterolemia, unspecified; R35.0 Frequency of micturition
CPT/HCPCS: 83036; 99214

== ENCOUNTER 2023-09-02 11:41 | Outpatient (REF) | payer OTHER, SELFPAY ==
[2023-09-02 11:55] LABS: MANUAL DIFF FLAG NO
[2023-09-02 12:57] LABS: Basophils Percent Auto 0.4 % (0-2); Eosinophils Absolute Auto 0.3 X10*3/uL (0.0-0.4); Eosinophils Percent Auto 3.2 % (0-4); Hematocrit 45.2 % (42.0-52.0); Hemoglobin 15.5 g/dl (14.0-18.0); Imm Gran Abs Auto 0.04 X10*3/uL (0.00-0.03); Imm Gran Pct Auto 0.4 % (0.0-0.4); Mean Corpuscular HGB Conc 34.3 g/dl (31.0-36.0); Mean Corpuscular Hemoglobin 30.9 pg (27.0-33.0); Mean Corpuscular Volume 90.2 fL (80.0-98.0); Mean Platelet Volume 10.8 fL (9.4-12.4); Monocytes Absolute Auto 0.5 X10*3/uL (0.1-1.2); Monocytes Percent Auto 5.9 % (2-11); Neutrophils Absolute Auto 5.1 x10*3/uL (2.0-8.3); Neutrophils Percent Auto 57.1 % (45-73); Platelet Count 214 X10*3/uL (160-400); Red Blood Count 5.01 X10*6/uL (4.60-5.80); Red Cell Distribution Width 12.9 % (11.0-16.0)
[2023-09-02 13:33] LABS: Alanine Aminotransferase 28 U/L (0-40); Albumin Level 4.2 g/dL (3.5-5.0); Alkaline Phosphatase 68 U/L (39-117); Anion Gap 15 (12-20); Aspartate Amino Transferase 27 U/L (5-37); Bilirubin Total 0.4 mg/dL (0.0-1.0); Blood Urea Nitrogen 24 mg/dL (9-16); Calcium 9.6 mg/dL (8.4-10.2); Carbon Dioxide 25 mmol/L (22-29); Chloride 104 mmol/L (96-108); Cholesterol 164 mg/dL (<200); Estimated Glomerular Filt Rate > 60; Glucose Random 220 mg/dL (60-115); HDL Cholesterol 49 mg/dL (>40); LDL Cholesterol Calculated 54 mg/dL (<100); Sodium 140 mmol/L (135-145); Total Protein 7.9 g/dL (6.5-8.0); Triglycerides 306 mg/dL (<150)
[2023-09-02 13:46] LABS: Prostate Specific Antigen 0.47 ng/mL (<0.05-4.0)
[2023-09-02 13:49] LABS: Free T4 (Free Thyroxine) 0.95 ng/dL (0.71-1.85); Thyroid Stimulating Hormone 1.63 uIU/mL (0.32-4.0)
== END 2023-09-02 11:42 | disposition home or self-care (01) ==
LOC: HO.LAB 11:41
PROVIDERS: Visit Provider Internal Medicine
DX: Z12.5 Encounter for screening for malignant neoplasm of prostate (principal); N40.0 Benign prostatic hyperplasia without lower urinary tract symptoms; E78.00 Pure hypercholesterolemia, unspecified
CPT/HCPCS: 36415; 80053; 80061; 84153; 84439; 84443; 85025

== ENCOUNTER 2023-10-12 12:51 | Outpatient (AMB) | payer OTHER, SELFPAY ==
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
[2023-10-12 12:54] VITALS: BP 130/96; PULSE 84; BMI 36.9
[2023-10-12 13:05] LABS: Glucose, Whole Blood 210 mg/dL (60-115)
== END 2023-10-12 13:25 | disposition home or self-care (01) ==
PROVIDERS: PCP Internal Medicine; Visit Provider Internal Medicine Endocrinology, Diabetes & Metabolism
DX: E11.65 Type 2 diabetes mellitus with hyperglycemia (principal); Z79.4 Long term (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
CPT/HCPCS: 99214

== ENCOUNTER → 2023-10-12 12:51 | Outpatient (BNVA) | payer OTHER, SELFPAY | PROVIDERS: PCP Internal Medicine; Visit Provider Internal Medicine Endocrinology, Diabetes & Metabolism | DX: E11.65 Type 2 diabetes mellitus with hyperglycemia (principal); Z79.4 Long term (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; Z79.85 Long-term (current) use of injectable non-insulin antidiabetic drugs; Z79.84 Long term (current) use of oral hypoglycemic drugs | CPT/HCPCS: 82947; 99212 ==

== ENCOUNTER 2023-10-14 09:14 | Outpatient (REF) | payer OTHER, SELFPAY | END 2023-10-14 09:15 | disposition home or self-care (01) | LOC: HO.XRAY 09:14 | PROVIDERS: PCP Internal Medicine; Visit Provider Internal Medicine | DX: Z13.89 Encounter for screening for other disorder (principal) ==

== ENCOUNTER 2023-10-22 08:08 | Outpatient (AMB) | payer OTHER, SELFPAY ==
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
== END 2023-10-22 08:39 | disposition home or self-care (01) ==
PROVIDERS: PCP Internal Medicine; Visit Provider Registered Nurse Diabetes Educator
DX: E78.00 Pure hypercholesterolemia, unspecified (principal)

== ENCOUNTER → 2023-10-22 08:08 | Outpatient (BNVA) | payer OTHER, SELFPAY | PROVIDERS: PCP Internal Medicine; Visit Provider Registered Nurse Diabetes Educator | DX: E78.00 Pure hypercholesterolemia, unspecified (principal) | CPT/HCPCS: 99211 ==

== ENCOUNTER 2023-10-29 08:47 | Inpatient (IN) | payer OTHER, SELFPAY ==
--- NOTE | ~2023-10-29 | XR_ITS ---
EXAMINATION: XR CHEST CLINICAL INFORMATION: Left-sided chest pain with shortness of breath COMPARISON: 04/07/2022 TECHNIQUE: 2 views of the chest were obtained. FINDINGS: Left lower lobe infiltrate versus atelectasis. The right lung is grossly clear. The cardiac silhouette is comparable. There is no failure. No effusion is seen. The hilar structures are felt to be comparable to previous. XR/XR chest 2V IMPRESSION: Left lower lobe atelectasis/infiltrate. Follow-up films are recommended to assess for resolution and establish baseline. Follow-up in 4-6 weeks.
--- NOTE | ~2023-10-29 | US_ITS ---
EXAMINATION: US VENOUS ULTRASOUND WITH DOPPLER LOWER EXTREMITY, BILATERAL CLINICAL INFORMATION: bilateral PE R leg swelling COMPARISON: Right lower extremity venous duplex 02/06/2016, left lower extremity venous duplex 06/27/2015 TECHNIQUE: Ultrasound of the deep veins is performed from the hip to the calf with compression sonography and color and pulse Doppler assessment. Spectral analysis with color-flow imaging is performed. FINDINGS: RIGHT: There is nonocclusive eccentric thrombus in the popliteal vein which appears chronic. Otherwise, there is normal venous compression and respiratory variation and augmented flow. The visualized common femoral vein, superficial femoral vein, profunda femoral vein and the trifurcation region shows no evidence of deep venous thrombosis. There is no significant popliteal fossa cyst. LEFT: There is acute thrombus in the left common femoral vein as well as throughout the entirety of the femoral vein. There is nonocclusive thrombus in the left popliteal vein, chronicity indeterminant. The visualized trifurcation region shows no evidence of deep venous thrombosis. There is no significant popliteal fossa cyst. US/US venous duplex LE BI IMPRESSION: 1. There is acute thrombus in the left common femoral vein as well as throughout the entirety of the femoral vein. There is nonocclusive thrombus in the left popliteal vein. 2. There is nonocclusive thrombus in the right popliteal vein which appears chronic. These results were discussed with Derek FULTON by telephone on 10/29/2023 at 5:23 PM and it was ascertained that the content of the report was understood at the time of direct communication.
--- NOTE | ~2023-10-29 | CT_ITS ---
EXAMINATION: CT ANGIOGRAM OF THE CHEST WITH AND WITHOUT CONTRAST (CT PULMONARY ANGIOGRAM FOR PE) CLINICAL INFORMATION: Reason for Exam prior PE here with L sided pleuritic chest pain COMPARISON: None available. TECHNIQUE: Prior to contrast administration, noncontrast localization images were obtained. Subsequently, multidetector volumetric imaging was performed from the thoracic inlet to below the diaphragms following the administration of 80 mL Omnipaque 350 intravenous contrast. No contrast reaction reported Sagittal, coronal, and MIP oblique sagittal reformatted images were obtained on the CT workstation, uploaded to PACS, and reviewed. This CT examination was performed using dose optimization techniques as appropriate, variously including the following: *Automated exposure control *Adjustment of mA and/or kV according to patient size (this includes techniques or standardized protocols for targeted exams where dose is matched to indication/reason for exam; i.e. extremities or head) *Use of iterative reconstruction technique Total exam dose-length product 331 mGy-cm FINDINGS: QUALITY OF STUDY/CONTRAST BOLUS: Satisfactory. PULMONARY ARTERIES: Positive pulmonary embolism with the most proximal segment at the level of the right main pulmonary artery and its distal aspect. Right-sided pulmonary embolism emanating from the distal right main pulmonary artery extending into the right lower lobe segmental and subsegmental branches. Left-sided pulmonary artery involving the left lower lobe lobar, segmental, and subsegmental branches. Main pulmonary artery is not enlarged. THORACIC AORTA: No aneurysm. LUNG/PLEURA: Trace left pleural effusion. Left basilar atelectasis. Respiratory motion artifact limits evaluation for pulmonary nodules. Central airways are patent. No pneumothorax. MEDIASTINUM: Heart is not enlarged. No pericardial effusion. Coronary artery calcifications are noted.. No enlarged lymph nodes per size criteria. No evidence of septal bowing or right heart strain. CHEST WALL/AXILLA: No axillary or internal mammary lymphadenopathy. OSSEOUS STRUCTURES: Mild degenerative changes of the thoracolumbar spine. UPPER ABDOMEN: Small hiatal hernia. Decreased hepatic attenuation suggesting hepatic steatosis. No reflux of contrast into the hepatic veins to suggest elevated right heart pressures. CT/CT angio chest PE protocol IMPRESSION: 1. Bilateral pulmonary artery embolism without evidence of heart strain, right greater than left. 2. Trace left pleural effusion with left basilar atelectasis. 3. Small hiatal hernia. 4. Decreased hepatic attenuation suggesting hepatic steatosis. This critical result was discussed with Dr Cardona by telephone on 10/29/2023 2:33 PM and it was ascertained that the content and urgency of the report was understood at the time of direct communication.
--- NOTE | ~2023-10-29 | XR_ITS ---
EXAMINATION: XR CHEST CLINICAL INFORMATION: Sepsis. COMPARISON: 10/29/2023. TECHNIQUE: Frontal view of the chest was obtained. FINDINGS: The lung volumes are low. The cardiomediastinal silhouette is stable. There is a left retrocardiac/left lung base opacity. There are no significant pleural effusions. The bony structures and soft tissues are unremarkable. XR/XR chest 1V IMPRESSION: Low lung volumes. Left retrocardiac/left lung base opacity which could represent a developing infiltrate in the appropriate clinical setting.
--- NOTE | ~2023-10-29 | CT_ITS ---
EXAMINATION: CT chest, abdomen and pelvis. CLINICAL INFORMATION: Severe chest and abdominal pain. COMPARISON: CT pulmonary angiogram on 10/29/2023, CT scan of abdomen and pelvis on 08/30/2015 TECHNIQUE: A multidetector helical CT acquisition of the chest, abdomen and pelvis was obtained following the administration of 99 mL of Omnipaque 350. Multiplanar reformats were acquired and utilized for image interpretation. Coronal and sagittal images were reconstructed from axial image data. Dose reduction technique: One or more of the following individual dose optimization techniques were used including: Automated exposure control, mA and/or kV were adjusted according to patient size or iterative reconstruction. DLP: 874 mGy-cm FINDINGS: LUNGS: Extensive patchy airspace disease is seen in left lower lobe with air bronchograms. Additional focal airspace disease is seen along posterior border of left lingular lobe inferior segment. Branching reticular linear and platelike atelectasis is seen in right upper lobe posterior segment. PLEURA: Small left pleural effusion is present. No pneumothorax is seen. PERICARDIUM: No pericardial effusion is seen. MEDIASTINUM AND TENA: No abnormally enlarged mediastinal or hilar lymph nodes are seen. TRACHEOBRONCHIAL TREE: Trachea and bilateral mainstem bronchi are patent. THORACIC AORTA: The thoracic aorta shows fusiform ectasia in the ascending aorta measuring 3.7 cm in AP and transverse diameter and smoothly patent. CORONARY ARTERY CALCIFICATIONS: Absent PULMONARY ARTERIES: Persistent emboli is seen in the right descending pulmonary artery, posterior segmental and subsegmental pulmonary arteries. Emboli are seen in the left lower lobe posterior and lateral basal segmental and subsegmental arteries. CHEST WALL AND LOWER NECK: The subcutaneous and muscular chest wall are intact with no focal lesion. No abnormal mass lesion could be seen in the visualized lower neck. BONES: No fracture or dislocation. No focal bone lesion diagnostic of metastatic disease could be seen in the thorax. VISUALIZED UPPER ABDOMEN: Bilateral adrenal glands are not enlarged. Fleischner guidelines were followed. EXAMINATION: CT abdomen. FINDINGS: LUNG BASES: Left lower lobe airspace disease and small left pleural effusion are present. LIVER: No focal lesion is seen in the liver. There is hepatic steatosis, mean attenuation of 42.6 Hounsfield units, in spite of intravenous contrast enhancement. GALLBLADDER AND BILIARY TREE: Gallbladder is markedly distended, measuring 10.6 cm in horizontal length, consistent with hydrops gallbladder, without calcified stones. Common bile duct is not dilated. SPLEEN: The spleen is normal in size without focal lesion. PANCREAS: The pancreas appears unremarkable. ADRENAL GLANDS: Adrenal glands are normal in size without focal lesion bilaterally. KIDNEYS: Bilateral kidneys are normal in size without focal lesion. BOWELS: There is no abnormal dilatation of the large and small bowel loops. There is diffuse fecal retention in the colon. Normal appendix is seen projecting posterior and superior to the cecum. RETROPERITONEUM: No abnormally enlarged retroperitoneal lymph nodes, mass or hematoma could be seen. BLOOD VESSELS: Abdominal aorta is normal in size and smoothly patent. ABDOMINAL WALL: Supraumbilical midline surgical mesh and midline postsurgical fibrotic scar and surgical clips are present. No recurrent supraumbilical ventral hernia is seen. Small umbilical hernia containing mesenteric fat is seen. PERITONEUM: There was no ascites. There were no abdominal peritoneal inflammatory changes seen. No free peritoneal air was seen. No abnormally enlarged mesenteric lymph nodes are found. BONES: No fracture or dislocation. There is unchanged L5 vertebral body cavernous hemangioma with polkadot appearance. No focal bone lesion diagnostic of metastatic disease could be seen in the lumbar region. EXAMINATION: CT pelvis. FINDINGS: URINARY BLADDER: Urinary bladder fills normally with high density content, mean attenuation of 106 Hounsfield units, compatible with excreted contrast. BOWELS: There is no abnormal dilatation of the large and small bowel loops. GENITAL ORGANS: Seminal vesicles are unremarkable. Prostate gland is normal. LYMPH NODES: No abnormally enlarged iliac or inguinal lymph nodes are seen. PERITONEUM: No inflammatory changes, ascites or free peritoneal air are found in the pelvis. Small left inguinal hernia containing mesenteric fat is present. BONES: Bilateral sacroiliac bone fixation with long partially cannulated screws, anterior superior pubic rami fixation with metallic plate and cortical screws, left femoral fixation with full length intramedullary gamma nail and multiple oblique intertrochanteric transfixion screw are seen. Circumferential radiolucent gap surrounding the intramedullary nunu is seen surrounding the femoral neck and supraclavicular trochanteric left femoral shaft. There is marked diastases of right sacroiliac joint. There are marked fragmentation and deformity of bilateral superior pubic rami, ileal pubic rami No focal bone lesion diagnostic of metastatic disease could be seen in the pelvis. CT/CT abdomen pelvis w IV con IMPRESSION: 1. Persistent bilateral pulmonary emboli. 2. Interval increase in Extensive left lower lobe airspace disease and small left pleural effusion. 3. Unchanged ascending thoracic aortic fusiform ectasia. 4. Unchanged Hepatic steatosis. 5. Interval development of Hydrops gallbladder. 6. Supraumbilical midline surgical mesh and midline postsurgical fibrotic scar and surgical clips. No recurrent supraumbilical ventral hernia is seen. 7. Unchanged Small umbilical hernia containing mesenteric fat and Small left inguinal hernia containing mesenteric fat. 8. Unchanged extensive sacral iliac and pelvic fractures with fragmentation, marked deformity, internal fixation with plates and screws. 9. Unchanged Marked diastases of right sacroiliac joint.
[2023-10-29 09:29] VITALS: BP 138/94; PULSE 112; RESP 18; TEMP 36.6; O2SAT 95; BMI 36.6
--- NOTE | 2023-10-29 09:32 | ECG_ITS ---
Test Reason : CP Blood Pressure : / mmHG Vent. Rate : 107 BPM Atrial Rate : 107 BPM P-R Int : 148 ms QRS Dur : 092 ms QT Int : 336 ms P-R-T Axes : 017 -25 035 degrees QTc Int : 448 ms Sinus tachycardia Possible Anterior infarct , age undetermined Abnormal ECG When compared with ECG of 07-APR-2022 11:35, No significant change was found Referred By: Generic ED Physician Electronically Signed By:LONNY JIANG MD
[2023-10-29 09:53] LABS: MANUAL DIFF FLAG NO
[2023-10-29 09:58] LABS: Basophils Percent Auto 0.3 % (0-2); Eosinophils Absolute Auto 0.2 X10*3/uL (0.0-0.4); Eosinophils Percent Auto 1.9 % (0-4); Hematocrit 44.7 % (42.0-52.0); Hemoglobin 15.1 g/dl (14.0-18.0); Imm Gran Abs Auto 0.05 X10*3/uL (0.00-0.03); Imm Gran Pct Auto 0.4 % (0.0-0.4); Lymphocytes Absolute Auto 2.4 X10*3/uL (1.2-4.9); Lymphocytes Percent Auto 21.4 % (20-40); Mean Corpuscular HGB Conc 33.8 g/dl (31.0-36.0); Mean Corpuscular Hemoglobin 30.3 pg (27.0-33.0); Mean Corpuscular Volume 89.8 fL (80.0-98.0); Mean Platelet Volume 10.2 fL (9.4-12.4); Monocytes Absolute Auto 0.7 X10*3/uL (0.1-1.2); Monocytes Percent Auto 6.4 % (2-11); Neutrophils Absolute Auto 7.9 x10*3/uL (2.0-8.3); Neutrophils Percent Auto 69.6 % (45-73); Platelet Count 182 X10*3/uL (160-400); Red Blood Count 4.98 X10*6/uL (4.60-5.80); Red Cell Distribution Width 12.9 % (11.0-16.0); White Blood Count 11.3 X10*3/uL (4.8-10.8)
[2023-10-29 10:17] LABS: Anion Gap 17 (12-20); Blood Urea Nitrogen 16 mg/dL (9-16); Calcium 9.6 mg/dL (8.4-10.2); Carbon Dioxide 19 mmol/L (22-29); Chloride 107 mmol/L (96-108); Creatinine Clr Calc Pharmacy 111.3; Estimated Glomerular Filt Rate > 60; Glucose Random 181 mg/dL (60-115); Sodium 139 mmol/L (135-145)
[2023-10-29 10:29] LABS: Troponin-I High Sensitivity < 2.7 ng/L (<3.5-35.0)
[2023-10-29 10:38] VITALS: BP 146/105; PULSE 105; RESP 14; O2SAT 96
[2023-10-29 10:46] LABS: Influenza A PCR NEGATIVE (Negative); Influenza B PCR NEGATIVE (Negative); Resp Syncy Virus RNA Qual PCR NEGATIVE (Negative); SARS COV2 PCR INHOUSE NEGATIVE (Negative)
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
[2023-10-29 11:19] LABS: B Type Natriuretic Peptide < 10 pg/mL (<100)
[2023-10-29] MEDS: Morphine Sulfate 4 MG/ML CARTRIDGE IVPUSH ×2 (11:43→21:29)
[2023-10-29] MEDS: ondansetron HCL 4 MG/2 ML VIAL IVPUSH (11:43)
[2023-10-29 11:47] LABS: INTERNATIONAL NORM RATIO 1.1 (0.9-1.1); Prothrombin Time 13.1 SEC (11.1-13.3)
[2023-10-29] MEDS: iohexoL 350 MG/ML 100 ML INFUS..BTL IV (12:13)
[2023-10-29] MEDS: HYDROmorphone HCl 0.5 MG/0.5 ML SYRINGE IVPUSH (12:29)
[2023-10-29 12:32] LABS: Lactic Acid 1.9 mmol/L (0.5-2.0)
[2023-10-29] MEDS: cefTRIAXone sodium 1 GM in 0.9 % Sodium Chloride 50 ML IV (12:36)
[2023-10-29 12:45] VITALS: BMI 36.9
[2023-10-29] MEDS: Enoxaparin Sodium 100 MG/ML SYRINGE SUBCUT (14:48)
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
[2023-10-29 15:04] VITALS: BP 141/102; PULSE 108; RESP 17; TEMP 36.4; O2SAT 96
[2023-10-29] MEDS: HYDROmorphone HCl 1 MG/ML SYRINGE IVPUSH (15:04)
--- NOTE | 2023-10-29 16:36 | PC.NURSE ---
20g iv inserted RAC, meds given as ordered and documented. vss.
--- NOTE | 2023-10-29 16:49 | PHA.MEDREC ---
Pharmacy Consult ? Medication Reconciliation Pharmacy has completed the medication reconciliation. Spoke to patient and confirmed medication list. Patient said he uses Fiasp 25 units tidac, Tresiba 64 units in the morning and Trulicity 3 mg every thursday (last dose was on 10/24).
[2023-10-29 17:51] VITALS: BP 127/95; PULSE 101; RESP 15; O2SAT 94
[2023-10-29 18:13] LABS: Glucose, Whole Blood 157 mg/dL (60-115)
[2023-10-29 18:21] VITALS: BP 136/101
[2023-10-29] MEDS: lisinopriL 20 MG TABLET PO (18:21)
[2023-10-29] MEDS: Omeprazole 20 MG CAPSULE.DR PO (18:21)
[2023-10-29] MEDS: Topiramate 100 MG TABLET PO (18:21)
[2023-10-29] MEDS: Cyanocobalamin (Vitamin B-12) 1,000 MCG TABLET 1000 MCG PO (18:21)
[2023-10-29] MEDS: Atorvastatin Calcium 80 MG TABLET PO (18:21)
[2023-10-29] MEDS: Cholecalciferol (Vitamin D3) 25 MCG TABLET 125 MCG PO (18:24)
[2023-10-29] MEDS: Insulin Lispro 100 UNIT/ML 3 ML VIAL SUBCUT ×2 (18:24→20:46)
--- NOTE | 2023-10-29 18:27 | PC.NURSE ---
Medicated per Aug. Notified Primary Nurse renee.
[2023-10-29 19:14] VITALS: BP 142/88; PULSE 99; RESP 16; TEMP 36.6; O2SAT 95
[2023-10-29 20:43] LABS: Glucose, Whole Blood 202 mg/dL (60-115)
[2023-10-29] MEDS: Gabapentin 600 MG TABLET PO (20:46)
[2023-10-29] MEDS: Empagliflozin 25 MG TABLET PO (20:46)
[2023-10-29] MEDS: Fenofibrate 160 MG TABLET PO (20:48)
[2023-10-29] MEDS: Nortriptyline HCl 25 MG CAPSULE 50 MG PO (21:37)
--- NOTE | 2023-10-29 23:54 | PC.NURSE ---
pt medicated for pain at 2128
[2023-10-30] VITALS (12 sets, daily range): BP systolic 74–140; BP diastolic 42–77; PULSE 104–129; RESP 16–20; TEMP 36.7–38.3; O2SAT 90–97; BMI 36.3; BMI 36.7
[2023-10-30] MEDS: Enoxaparin Sodium 100 MG/ML SYRINGE SUBCUT (02:07)
[2023-10-30] MEDS: Morphine Sulfate 4 MG/ML CARTRIDGE IVPUSH ×3 (02:07→15:09)
[2023-10-30] MEDS: 0.9 % Sodium Chloride Flush 3 ML SYRINGE IVFLUSH ×4 (02:08→21:58)
--- NOTE | 2023-10-30 02:44 | PC.NURSE ---
at 0207 pt c/o 02/15 pain, medicated per MAR
[2023-10-30 06:10] LABS: Glucose, Whole Blood 112 mg/dL (60-115)
--- NOTE | 2023-10-30 06:13 | PM.EVENT ---
Event Note Date of Service: 10/30/23 Event Note: Nurse reported low blood pressure. Initiated IV crystalloid bolus. Change the cuff with repeat blood pressure 99/64 with map of 73. Patient complaining of severe chest pain radiating to the lower back. Will obtain imaging. Also obtaining troponin and BNP. A.m. labs pending. Time Spent With Patient Time: Total time managing care of this patient today ____ minutes.
[2023-10-30 06:16] LABS: Hematocrit 45.3 % (42.0-52.0); Mean Corpuscular HGB Conc 33.1 g/dl (31.0-36.0); Mean Corpuscular Hemoglobin 30.5 pg (27.0-33.0); Mean Corpuscular Volume 92.1 fL (80.0-98.0); Mean Platelet Volume 11.4 fL (9.4-12.4); Platelet Count 166 X10*3/uL (160-400); Red Blood Count 4.92 X10*6/uL (4.60-5.80); Red Cell Distribution Width 13.2 % (11.0-16.0); White Blood Count 13.2 X10*3/uL (4.8-10.8)
--- NOTE | 2023-10-30 06:24 | MHC.EDTECH ---
Pt incontinent of some urine. Pt was able to take off soiled underwear and clean himself up. Pt put himself back in bed, warm blanket given.
--- NOTE | 2023-10-30 06:24 | PC.NURSE ---
pt ct-scan
--- NOTE | 2023-10-30 06:38 | PC.NURSE ---
prior to ct-scan, pt b/p sbp 60's -70's, had shout to patient to open his eyes, pt was speaking, 2 nd IV established, current b/p /. Dr. Salazar in to assess. pt reassessed alert and oriented x 4, c/o left flank pain, last dose of pain medication per AUG at 2 am. Pt talking on the phone waiting for transfer to floor
[2023-10-30] MEDS: iohexoL 350 MG/ML 100 ML INFUS..BTL 99 ML IV (06:40)
--- NOTE | 2023-10-30 07:00 | CA_ITS ---
Transthoracic Echocardiogram Patient (Last, First, Middle): Sam Honeycutt J Gender: Male Date of : 1965 Age: 57 Procedure Date: 10/30/2023 Procedure Type: Transthoracic Echocardiogram Location: [facility] [place] Height: 170.18 cm Weight: 106.6 kg BSA: 2.17 m2 Heart Rate: bpm BP: 111 / 77 mmHg Publications Manager: Referring MD: Jam FULTON Symptoms: Pulmonary Emboli Study Quality: Fair ECG Rhythm: Sinus Conclusions: - Normal left ventricular cavity size. The left ventricular systolic function is hyperdynamic. The visually estimated ejection fraction is >70%. Diastolic function is indeterminate on the basis of available data. - Normal right ventricular cavity size and systolic function. - There is mild dilatation of the ascending aorta measuring 3.50 cm. - Limited valvular visualization and assessment. Findings Left Ventricle Normal left ventricular cavity size. The left ventricular systolic function is hyperdynamic. The visually estimated ejection fraction is >70%. Diastolic function is indeterminate on the basis of available data. Right Ventricle Normal right ventricular cavity size and systolic function. Atria The left atrium was not well visualized. Aortic Valve The aortic valve was not well visualized. Mitral Valve The mitral valve appears normal. There is no mitral valve regurgitation. There is no mitral valve stenosis. Pulmonic Valve The pulmonic valve is likely normal. Tricuspid Valve Normal tricuspid valve structure. There is no tricuspid valve regurgitation. Tricuspid regurgitation envelope is inadequate for calculation of right ventricular systolic pressure. Normal right atrial pressure. Great Vessels There is mild dilatation of the ascending aorta measuring 3.50 cm. Venous The inferior vena cava is normal in size and collapses greater than 50% with inspiration. Pericardium/Pleural There is no evidence of pericardial effusion. Measurements 2D Linear Measurements IVSd: 1.63 0.6-0.9/0.6-1.0 cm LVIDd: 2.93 3.9-5.3/4.2-5.9 cm LVIDd Index: 1.35 2.4-3.2/2.2-3.1 cm/m2 LVIDs: 1.87 2.0-3.6 cm LVPWd: 1.68 0.7-1.1 cm Ao Root: 3.90 2.1-3.5 cm LV Mass: 226.53 67-162/88-224 g LV Mass Index: 104.39 43-95/49-115 g/m2 LVOT Diam: 2.30 3.0+(-)1.3 cm Mitral Valve MV Pk E: 0.66 MV PK A: 0.77 MV Decel Time: 156.00 E/A: 0.90 E'Lateral: 5.55 E'Medial: 5.00 E/E' Med: 13.20 E/E' Lat: 11.90 PHT: 46.00 MVA PHT: 4.78 Decel Sutton: 4.22 Aortic Valve AoV Pk Jose: 1.41 AoV Mn Jose: 0.85 AoV VTI: 0.23 AoV Pk Grad: 8.00 Aov Mn Grad: 3.00 LVOT LVOT Diam: 2.30 LVOT Area: 4.15 Diastolic Function MV Pk E: 0.66 MV Pk A: 0.77 E/A: 0.90 E'Medial: 5.00 E/E' Med: 13.20 E' Laterial: 5.55 E/E' Lat: 11.90 Right Ventricle TAPSE (mm): 22.00 Tricuspid Valve TR Pk Jose: 1.94 TR Pk Grad: 15.00 RA Press: 3.00 RVSP: 18.00 Great Vessels Aorta Ao Root-2D: 3.90 2.0-3.7 cm Ao Asc: 3.50 2.1-3.4 cm Pulmonary Valve PV Pk Jose: 1.18 Peak PV Grad: 6.00 Updated in Other Vendor System with Status of Final Conrad Chavez MD electronically signed on 10/30/2023 7:23:51 PM with status of Final
[2023-10-30 07:47] LABS: Glucose, Whole Blood 164 mg/dL (60-115)
[2023-10-30] MEDS: lisinopriL 20 MG TABLET PO (09:12)
[2023-10-30] MEDS: Topiramate 100 MG TABLET PO (09:12)
[2023-10-30] MEDS: Gabapentin 600 MG TABLET PO ×2 (09:12→15:09)
[2023-10-30] MEDS: Empagliflozin 25 MG TABLET PO (09:12)
[2023-10-30] MEDS: Nortriptyline HCl 25 MG CAPSULE 50 MG PO (09:12)
[2023-10-30] MEDS: Atorvastatin Calcium 80 MG TABLET PO (09:12)
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
[2023-10-30] MEDS: Fenofibrate 160 MG TABLET PO (09:17)
[2023-10-30] MEDS: 0.9 % Sodium Chloride 1,000 ML 125 ML IVCONT ×2 (09:21→17:19)
--- NOTE | 2023-10-30 09:33 | MHC.CM.PN ---
IMM 08/01/23, Pt. lives with family, he does not have home health services, for DME he has a cane, walker (does not use), and W/C, which he does use when he is outside. PCP confirmed: Dr. Tam. Pt will complete HCP form here. He is able to arrange transportation at [place]. DC plan is home with services. CM to follow and assist with DC planning.
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
[2023-10-30 11:05] LABS: Glucose, Whole Blood 176 mg/dL (60-115)
--- NOTE | 2023-10-30 11:51 | P.PNIM_ITS ---
Subjective Subjective Date of Service: 11/04/23 Interval History: f/u on santos PE and DVT interval history: No new symptoms, no sob Physical Exam 2 Vital Signs: Vital Signs: Last Vital Signs Temp 100.2 F 10/30/23 07:45 Pulse 108 H 10/30/23 07:45 Resp 20 10/30/23 07:45 BP 140/77 H 10/30/23 07:45 Pulse Ox 91 L 10/30/23 07:45 O2 Del Method Room Air 10/30/23 07:45 BMI result Body Mass Index 36.3 General: AO X 3, no acute distress Resp: CTA bilateral CVS: S1,S2,RRR GI: +BS, NT, no distention Skin: No rash, swelling in r foot Neuro: motor grossly intact Psych: appropriate affect Objective Data Active Medications Acetaminophen (Acetaminophen 325 Mg Tablet) 650 mg PO Q6H PRN PRN Reason: Pain, Mild (Pain Scale 1-3) Atorvastatin Calcium (Atorvastatin Calcium 80 Mg Tablet) 80 mg PO DAILY [facility] Last Admin: 10/30/23 09:12 Dose: 80 mg Documented By: JAZMYN Benzonatate (Benzonatate 100 Mg Capsule) 100 mg PO TID PRN PRN Reason: Cough Cyanocobalamin (Cyanocobalamin (Vitamin B-12) 1,000 Mcg Tablet) 1,000 mcg PO DAILY [facility] Last Admin: 10/30/23 09:24 Dose: Not Given Documented By: JAZMYN Non-Admin Reason: NPO Docusate Sodium (Docusate Sodium 100 Mg Capsule) 100 mg PO DAILY PRN PRN Reason: Constipation Empagliflozin (Empagliflozin 25 Mg Tablet) 25 mg PO DAILY [facility] Last Admin: 10/30/23 09:12 Dose: 25 mg Documented By: JAZYMN Fenofibrate (Fenofibrate 160 Mg Tablet) 160 mg PO DAILY [facility] Last Admin: 10/30/23 09:17 Dose: 160 mg Documented By: JAZMYN Gabapentin (Gabapentin 600 Mg Tablet) 600 mg PO TID [facility] Last Admin: 10/30/23 09:12 Dose: 600 mg Documented By: JAZMYN Glucose (Glucose Gel 15 Gm Gel..Gram.) 15 gm PO Q15M PRN; Protocol PRN Reason: per Hypoglycemia Standing Ord. Dextrose (D10) 250 mls @ 750 mls/hr IV Q15M PRN; Protocol PRN Reason: per Hypoglycemia Standing Ord. Sodium Chloride (Ns) 1,000 mls @ 125 mls/hr IVCONT .Q8H [facility] Last Admin: 10/30/23 09:21 Dose: 125 mls/hr Documented By: JAZMYN Sodium Chloride (Ns) 1,000 mls @ 100 mls/hr IVCONT .Q10H [facility] Last Admin: 10/30/23 09:40 Dose: Not Given Documented By: JAZMYN Non-Admin Reason: IV Running Insulin Human Lispro (Insulin Lispro 100 Unit/Ml 3 Ml Vial) 0 unit SUBCUT QIDACHS [facility]; Protocol Last Admin: 10/30/23 08:34 Dose: Not Given Documented By: JAZMYN Non-Admin Reason: NPO Lisinopril (Lisinopril 20 Mg Tablet) 20 mg PO DAILY [facility]; Protocol Last Admin: 10/30/23 09:12 Dose: 20 mg Documented By: JAZMYN Melatonin (Melatonin 3 Mg Tablet) 6 mg PO BEDTIME PRN PRN Reason: Insomnia Morphine Sulfate (Morphine Sulfate 4 Mg/Ml Cartridge) 4 mg IVPUSH Q4H PRN; Protocol PRN Reason: Pain, Severe (Pain Scale 7-10) Last Admin: 10/30/23 08:32 Dose: 4 mg Documented By: JAZMYN Nortriptyline HCl (Nortriptyline Hcl 25 Mg Capsule) 50 mg PO BID [facility] Last Admin: 10/30/23 09:12 Dose: 50 mg Documented By: JAZMYN Omeprazole (Omeprazole 20 Mg Capsule.Dr) 20 mg PO DAILY@0630 [facility] Last Admin: 10/30/23 07:16 Dose: Not Given Documented By: YOLETTE Non-Admin Reason: NPO Ondansetron HCl (Ondansetron Hcl 4 Mg/2 Ml Vial) 4 mg IVPUSH Q8H PRN PRN Reason: Nausea and Vomiting Sodium Chloride (0.9 % Sodium Chloride Flush 3 Ml Syringe) 3 ml IVFLUSH QSHIFT [facility] Last Admin: 10/30/23 08:35 Dose: 3 ml Documented By: JAZMYN Topiramate (Topiramate 100 Mg Tablet) 100 mg PO DAILY [facility] Last Admin: 10/30/23 09:12 Dose: 100 mg Documented By: JAZMYN Vitamin D (Cholecalciferol (Vitamin D3) 25 Mcg Tablet) 125 mcg PO DAILY [facility] Last Admin: 10/30/23 09:24 Dose: Not Given Documented By: JAZMYN Non-Admin Reason: NPO Labs 11/03/23 06:20 11/03/23 06:20 Labs: Laboratory Results - last 24 hr 10/29/23 10/29/23 10/29/23 12:14 18:06 20:36 MCV MCH MCHC RDW Plt Count MPV Absolute Nucleated RBC Nucleated RBC % (auto) POC Glucose 157 H 202 H Lactic Acid 1.9 10/30/23 10/30/23 10/30/23 05:49 06:05 07:44 MCV 92.1 MCH 30.5 MCHC 33.1 RDW 13.2 Plt Count 166 MPV 11.4 Absolute Nucleated RBC 0.000 Nucleated RBC % (auto) 0.0 POC Glucose 112 164 H Lactic Acid 10/30/23 11:01 MCV MCH MCHC RDW Plt Count MPV Absolute Nucleated RBC Nucleated RBC % (auto) POC Glucose 176 H Lactic Acid Assessment and Plan (1) Chest pain, pleuritic: Status: Acute (2) Bilateral pulmonary embolism: Status: Acute (3) DVT (deep venous thrombosis): Status: Chronic Plan Pt is a 57-year-old male with a PMH significant for?HLD, HTN, insulin-dependent type 2 diabetes, hx of DVT with bilateral PE from lower extremity trauma previously on Coumadin at [facility], erosive gastritis, PAD, and GERD who presents to the ED with?shortness of breath and chest pain since last night. Pt will be admitted to the hospital for treatment further evaluation of bilateral pulmonary emboli. Bilateral pulmonary emboli/santos and DVT, history of DVT -on therapeutic Lovenox, will transition to heparin after decloting by vascular, echo pending, hematology to see, will need life time anticoagulation -Oxygen for hypoxia HTN--hold Lisinopril d/t low BP Transient hypotension, resolved, hold Lisinopril and monitor Insulin-dependent type 2 diabetes Hold metformin for another 24 hours for contrast SSI, Lantus and jardiance Diabetic diet Peripheral neuropathy Continue gabapentin Low grade fever HLD Continue statin, fenofibrate Full Code DVT Prophylaxis: On therapeutic Lovenox need ilateral pulmonary emboli. Patient required hospitalization for treatment with therapeutic Lovenox, close monitoring of vitals, labs, and cardiac function and specialist consultation with Hematology . Quality Stroke Does the patient have a stroke diagnosis?: No VTE Prior VTE?: No VTE Risk Level:: Medical - moderate - high VTE Device Contraindication: Treatment Not Indicated VTE Drug Contraindication: N/A - Med Ordered
--- NOTE | 2023-10-30 13:05 | P.OP_ITS ---
Operative Note Operative Note Date of Service: 10/30/23 Narrative: Operative note by [facility] Preoperative diagnosis: Deep venous thrombosis of left lower extremity Postoperative diagnosis: Same Procedure: 1 Ultrasound-guided left popliteal vein access 2. Inferior vena cavogram 3. Percutaneous transluminal venous mechanical thrombectomy (12769) 4. Plasty of left femoral and external iliac vein 5. Radiologic super visual and interpretation Surgeon:Ton Pichardo M.D. Account Advisor: None Anesthesia: Local with moderate conscious sedation. Total intra service moderate sedation time was 62 minutes. I monitored the patient's level of consciousness and physiologic status continuously throughout the procedure Specimen: None Drains: None Estimated blood loss: 50 mL Implant: None Indications: Very pleasant 57-year-old gentleman presented to the hospital with shortness of breath upon workup was noted to have DVT with PE. PE was small in caliber but left lower extremity appear to have acute DVT. He now presents for intervention The patient has signed the informed consent after reviewing risks, complications, benefits, and alternatives previously discussed with the patient. The patient was given the opportunity to ask any additional questions or voice any concerns. All questions were answered to the patient's satisfaction. Procedure in detail: Patient was brought to the Angiography suite prior to which a time-out was called for patient identification and site verification. The patient was placed in a prone position. Bilateral popliteal fossas were prepped out. We first access the left popliteal vein under ultrasound guidance. We then placed a percutaneous 4 Polish sheath. We were then able to traverse the clot with a Glidewire Advantage 035 wire. We brought in a trail Blazer catheter to confirmed true lumen. At this time 8000 units of heparin was administered. After 5 minutes of circulation time we then dilated up the tract. The clot triever over the wire system was then brought into position. We placed the clot triever sheath and exposed the self expanding Nitinol mesh funnel to facilitate clot removal for large-bore side port rapid aspiration. Once this was accomplished we then advanced over the wire the clot triever catheter with the coring element and braided collection bag. This was brought into the inferior vena cava up past this occlusion and extracted back. We did 4 sequential passes. The main angle of the catheter was placed at the 12:00 o'clock, 03:00 o'clock, 06:00 o'clock, and 09:00 o'clock positions. After each subsequent pass the clot was removed and it was flushed clear and we then b rought it in again through this area. There was some residual stenosis and we had to plasty the external iliac vein along with the femoral vein with a 10 x 40 balloon. Completion venogram demonstrated an excellent result. We subsequently removed catheter wire in sheath. Pursestring suture was placed. Sterile dressing was applied. Patient was brought to the recovery room with stable vitals. Interpretation of films: 1. Ultrasound demonstrates appropriate left popliteal vein puncture. 2. Vena cavogram demonstrated thrombus in the distal vena cava along the end attire iliofemoral system down into the popliteal vein. 3. Completion vena cavogram demonstrated resolution of clot. Conclusion: 1. Successful mechanical clot removal. 2. Anticoagulation status: Resume heparin drip in for hours. Tomorrow may start oral anticoagulation. This note is constructed using voice recognition software. While every effort has been made to ensure accuracy, forensic technician errors may have been included. Thank you for allowing me to participate in the care of your patient. Yours sincerely, Ton Pichardo MD, FACS, R.P.V.I.
[2023-10-30 13:51] LABS: Glucose, Whole Blood 145 mg/dL (60-115)
[2023-10-30 16:42] LABS: Glucose, Whole Blood 195 mg/dL (60-115)
[2023-10-30 17:00] LABS: Hematocrit 44.7 % (42.0-52.0); Hemoglobin 14.7 g/dl (14.0-18.0); Mean Corpuscular HGB Conc 32.9 g/dl (31.0-36.0); Mean Corpuscular Hemoglobin 30.2 pg (27.0-33.0); Mean Platelet Volume 10.9 fL (9.4-12.4); Platelet Count 216 X10*3/uL (160-400); Red Blood Count 4.86 X10*6/uL (4.60-5.80); Red Cell Distribution Width 13.5 % (11.0-16.0); White Blood Count 12.5 X10*3/uL (4.8-10.8)
[2023-10-30 17:01] LABS: Troponin-I High Sensitivity 2.7 ng/L (<3.5-35.0)
[2023-10-30 17:01] LABS: INTERNATIONAL NORM RATIO 1.1 (0.9-1.1); Prothrombin Time 13.7 SEC (11.1-13.3)
[2023-10-30 17:02] LABS: B Type Natriuretic Peptide < 10 pg/mL (<100)
[2023-10-30 17:04] LABS: PTT Heparin Drip 36.9 SEC (53-77.9)
[2023-10-30 17:04] LABS: PTT Heparin Drip 38.5 SEC (53-77.9)
[2023-10-30] MEDS: Insulin Lispro 100 UNIT/ML 3 ML VIAL SUBCUT ×2 (17:19→21:58)
[2023-10-30] MEDS: Heparin Sodium,Porcine 5,000 UNIT/ML VIAL 8500 UNIT IVPUSH (17:25)
[2023-10-30] MEDS: Heparin Sodium,Porcine/1/2NS 25,000 UNIT/250 ML IV.SOLN 14.88 UNIT IVCONT (17:27)
--- NOTE | 2023-10-30 18:53 | PC.NURSE ---
Pt arrived to unit from ED approximately 0800. A&OX4 speech clear. HOGUE to command, BLE slightly weaker at baseline R>L. Bilat feet discolored dark purple toes R>L cool to touch per pt baseline. 2+ edema to right foot, left foot 1+ pitting. Pulses assessed with doppler left weak areas marked for sites with skin marker. LS dim c/o shortness of breath increased with exertion. Sats low to mid 90's on room air. ST on tele. BS+X4 abdomen soft non-tender denies nausea/vomiting. NPO for procedure off unit for procedure at 1010 returns to unit approx 1340. Dressing to left posterior knee CDI. Heparin drip started per order this evening. PTT due next at 2330.
[2023-10-30] MEDS: 0.9 % Sodium Chloride 1,000 ML 999 ML IV ×2 (19:57→22:23)
[2023-10-30 20:40] LABS: Glucose, Whole Blood 223 mg/dL (60-115)
--- NOTE | 2023-10-30 21:55 | PM.EVENT ---
Event Note Date of Service: 10/30/23 Event Note: Was notified by the nurse that patient with low blood pressure 74/46. Resuscitated with 1 bag of normal saline with blood pressure 80/42. Obtained blood work and noted leukocytosis with WBC 14.9. Also patient with JOSUE with creatinine 2.96 and metabolic acidosis with lactic acid 2.9. He denies dizziness, lightheadedness or chest pain. Temperature 100.9 degrees. Patient meets SIRS criteria. Will give empiric IV antibiotics and obtain blood cultures. Will give 30 cc/kg crystalloid and if blood pressure continues to be low, will contact ICU team for evaluation. Unclear source of infection. Reviewed CT chest from a.m. with interval increase in left lower lobe airspace disease but patient without cough. Obtaining UA Time Spent With Patient Time: Total time managing care of this patient today ____ minutes.
[2023-10-30 22:31] LABS: MANUAL DIFF FLAG NO
[2023-10-30 22:33] LABS: Basophils Percent Auto 0.1 % (0-2); Eosinophils Absolute Auto 0.4 X10*3/uL (0.0-0.4); Hematocrit 41.5 % (42.0-52.0); Hemoglobin 13.9 g/dl (14.0-18.0); Imm Gran Abs Auto 0.04 X10*3/uL (0.00-0.03); Imm Gran Pct Auto 0.3 % (0.0-0.4); Lymphocytes Percent Auto 13.1 % (20-40); Mean Corpuscular HGB Conc 33.5 g/dl (31.0-36.0); Mean Corpuscular Hemoglobin 30.5 pg (27.0-33.0); Mean Platelet Volume 10.3 fL (9.4-12.4); Monocytes Absolute Auto 0.5 X10*3/uL (0.1-1.2); Monocytes Percent Auto 3.6 % (2-11); Neutrophils Absolute Auto 11.9 x10*3/uL (2.0-8.3); Neutrophils Percent Auto 79.9 % (45-73); Platelet Count 209 X10*3/uL (160-400); Red Blood Count 4.56 X10*6/uL (4.60-5.80); Red Cell Distribution Width 13.4 % (11.0-16.0); White Blood Count 14.9 X10*3/uL (4.8-10.8)
[2023-10-30 22:36] LABS: VBG Base Excess -7.7 mmol/L; VBG HCO3 17 mmol/L (22-26); VBG pCO2 33 mmHg; VBG pH 7.31 (7.32-7.43); VBG pO2 51 mmHg
[2023-10-30 22:39] LABS: Venous Blood Gas Refer to POC result
[2023-10-30 22:52] LABS: Lactic Acid 2.9 mmol/L (0.5-2.0)
[2023-10-30 22:53] LABS: Anion Gap 17 (12-20); Blood Urea Nitrogen 32 mg/dL (9-16); Calcium 8.7 mg/dL (8.4-10.2); Carbon Dioxide 19 mmol/L (22-29); Chloride 102 mmol/L (96-108); Estimated Glomerular Filt Rate 22; Glucose Random 239 mg/dL (60-115); Potassium 4.3 mmol/L (3.3-5.1); Sodium 134 mmol/L (135-145)
[2023-10-30 22:57] LABS: Troponin-I High Sensitivity 4.1 ng/L (<3.5-35.0)
[2023-10-30 23:50] LABS: PTT Heparin Drip 83.7 SEC (53-77.9)
[2023-10-30] MEDS: Acetaminophen 325 MG TABLET 650 MG PO (23:54)
[2023-10-31] VITALS (35 sets, daily range): BP systolic 60–142; BP diastolic 36–91; PULSE 92–128; RESP 15–32; TEMP 37.1–38.7; O2SAT 90–100; BMI 38.9
[2023-10-31 00:30] LABS: Reflex Lactate? Lactic Acid Added
[2023-10-31] MEDS: Lactated Ringers 500 ML 999 ML IV ×2 (01:00)
[2023-10-31] MEDS: cefTRIAXone sodium 1 GM in 0.9 % Sodium Chloride 50 ML IV (01:38)
--- NOTE | 2023-10-31 01:40 | PM.EVENT ---
Event Note Date of Service: 10/31/23 Event Note: Patient continues to have low blood pressure even after 30cc/kg crystalloid resuscitation. Talked to Dr Molina and will transfer the patient to intensive care unit for closer monitoring and treatment Time Spent With Patient Time: Total time managing care of this patient today ____ minutes.
[2023-10-31] MEDS: Norepinephrine Bitartrate/D5W 8 MG/250 ML PLAST..BAG 9.97 MG IV (02:39)
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
[2023-10-31 02:50] LABS: Glucose, Whole Blood 204 mg/dL (60-115)
[2023-10-31 03:04] LABS: Venous Blood Gas Refer to POC result
--- NOTE | 2023-10-31 03:06 | PC.NURSE ---
Pt hypotensive at 1999 vitals. Pt denies c/o CP, alert and oriented. No change in oxygen requirements, O2 at 2L via NC with O2 sats mid 90's. MD aware of abnormal blood pressures with bolus' of 1 Liter given x 3 without effect. MD at bedside several times with labs ordered. abnormal lactic acid reported to MD. Ceftriaxone 1 Gm administered. elevated temp reported also. Dressing to posterior L knee CDI. Heparin gtt adjusted per protocol with follow up PTT lab order placed. Decision made to transfer pt to ICU for further care. Transfer and reported completed 0245.
[2023-10-31 03:08] LABS: VBG Base Excess -7.2 mmol/L; VBG HCO3 18 mmol/L (22-26); VBG pCO2 37 mmHg; VBG pH 7.29 (7.32-7.43); VBG pO2 44 mmHg
[2023-10-31 03:14] LABS: ~Lactic Acid-LAB USE ONLY 2.2 mmol/L (0.5-2.0)
[2023-10-31 03:23] LABS: B Type Natriuretic Peptide < 10 pg/mL (<100)
[2023-10-31] MEDS: Piperacillin Sodium/Tazobactam 4.5 GM in 0.9 % Sodium Chloride 100 ML IV (03:27)
[2023-10-31] MEDS: vancomycin/NS 2,000 MG/500 ML PLAST..BAG 250 MG IV (03:48)
[2023-10-31 05:01] LABS: Reflex Lactate? 2 Y
[2023-10-31 05:24] LABS: Appearance Urine Clear; Color Urine Yellow; Glucose Urine UA >=1000 mg/dL (Negative); Leukocyte Esterase Urine Negative (Negative); Nitrite Urine Negative (Negative); PH 5.5 (5.0-9.0); Specific Gravity - Urine >= 1.030 (1.005-1.025); UMIC TRIGGER UACC YES; Urine Blood Trace (Negative); Urine Ketones Negative (Negative); Urine Protein Negative (Neg-Trace)
[2023-10-31 05:29] LABS: Bacteria Urine None Seen (None Seen); Hyaline Casts Urine 0-2 /LPF (0-2); RBC Urine 0-2 /HPF (0-2); Squamous Epithelial Cell Urine 0-2 /HPF (0-2); WBC Urine 0-5 /HPF (0-5)
[2023-10-31 05:42] LABS: Creatinine Urine 81.81 mg/dL; Sodium Urine Random < 20.0 mmol/L
[2023-10-31] MEDS: Omeprazole 20 MG CAPSULE.DR PO (06:04)
[2023-10-31 06:58] LABS: Glucose, Whole Blood 198 mg/dL (60-115)
[2023-10-31] MEDS: Atorvastatin Calcium 80 MG TABLET PO (08:12)
[2023-10-31] MEDS: Cholecalciferol (Vitamin D3) 25 MCG TABLET 125 MCG PO (08:12)
[2023-10-31] MEDS: Topiramate 100 MG TABLET PO (08:12)
[2023-10-31 08:13] LABS: MANUAL DIFF FLAG NO
[2023-10-31] MEDS: Gabapentin 600 MG TABLET PO (08:13)
[2023-10-31] MEDS: Cyanocobalamin (Vitamin B-12) 1,000 MCG TABLET 1000 MCG PO (08:13)
[2023-10-31 08:15] LABS: Basophils Percent Auto 0.1 % (0-2); Eosinophils Absolute Auto 0.6 X10*3/uL (0.0-0.4); Eosinophils Percent Auto 3.8 % (0-4); Hematocrit 36.8 % (42.0-52.0); Hemoglobin 12.3 g/dl (14.0-18.0); Imm Gran Abs Auto 0.07 X10*3/uL (0.00-0.03); Imm Gran Pct Auto 0.5 % (0.0-0.4); Lymphocytes Absolute Auto 1.7 X10*3/uL (1.2-4.9); Lymphocytes Percent Auto 11.4 % (20-40); Mean Corpuscular HGB Conc 33.4 g/dl (31.0-36.0); Mean Corpuscular Hemoglobin 30.3 pg (27.0-33.0); Mean Corpuscular Volume 90.6 fL (80.0-98.0); Mean Platelet Volume 10.4 fL (9.4-12.4); Monocytes Absolute Auto 0.6 X10*3/uL (0.1-1.2); Monocytes Percent Auto 4.3 % (2-11); Neutrophils Absolute Auto 11.7 x10*3/uL (2.0-8.3); Neutrophils Percent Auto 79.9 % (45-73); Platelet Count 188 X10*3/uL (160-400); Red Blood Count 4.06 X10*6/uL (4.60-5.80); Red Cell Distribution Width 13.4 % (11.0-16.0); White Blood Count 14.6 X10*3/uL (4.8-10.8)
[2023-10-31] MEDS: Insulin Lispro 100 UNIT/ML 3 ML VIAL SUBCUT ×4 (08:15→21:20)
[2023-10-31 08:18] LABS: VBG Base Excess -6.5 mmol/L; VBG HCO3 19 mmol/L (22-26); VBG pCO2 37 mmHg; VBG pH 7.31 (7.32-7.43); VBG pO2 41 mmHg
[2023-10-31 08:18] LABS: Venous Blood Gas Refer to POC result
[2023-10-31 08:21] LABS: INTERNATIONAL NORM RATIO 1.2 (0.9-1.1); Prothrombin Time 14.9 SEC (11.1-13.3)
[2023-10-31 08:23] LABS: PTT Heparin Drip 57.5 SEC (53-77.9)
[2023-10-31 08:27] LABS: ~Lactic Acid-LAB USE ONLY 1.2 mmol/L (0.5-2.0)
[2023-10-31 08:31] LABS: Alanine Aminotransferase 19 U/L (0-40); Alkaline Phosphatase 45 U/L (39-117); Anion Gap 16 (12-20); Aspartate Amino Transferase 28 U/L (5-37); Bilirubin Total 0.7 mg/dL (0.0-1.0); Blood Urea Nitrogen 32 mg/dL (9-16); Calcium 8.1 mg/dL (8.4-10.2); Carbon Dioxide 18 mmol/L (22-29); Chloride 106 mmol/L (96-108); Creatinine Clr Calc Pharmacy 38.6; Estimated Glomerular Filt Rate 26; Glucose Random 218 mg/dL (60-115); Magnesium 1.7 mg/dL (1.6-2.6); Phosphorus 3.5 mg/dL (2.7-4.5); Potassium 4.1 mmol/L (3.3-5.1); Sodium 136 mmol/L (135-145)
[2023-10-31] MEDS: diphenhydrAMINE HCL 50 MG/ML VIAL 25 MG IVPUSH ×2 (10:04→22:07)
[2023-10-31] MEDS: Fenofibrate 160 MG TABLET PO (10:04)
[2023-10-31] MEDS: fentaNYL citrate/PF 100 MCG/2 ML VIAL 25 MCG IVPUSH ×2 (10:04→20:00)
[2023-10-31] MEDS: Heparin Sodium,Porcine/1/2NS 25,000 UNIT/250 ML IV.SOLN 12.76 UNIT IVCONT (10:28)
[2023-10-31 11:30] LABS: Glucose, Whole Blood 259 mg/dL (60-115)
[2023-10-31] MEDS: Albumin Human 25 % 100 ML IV ×2 (12:09→16:47)
[2023-10-31 14:29] LABS: PTT Heparin Drip 44.8 SEC (53-77.9)
[2023-10-31] MEDS: Heparin Sodium,Porcine 5,000 UNIT/ML VIAL 4300 UNIT IVPUSH (15:00)
[2023-10-31 16:12] LABS: Glucose, Whole Blood 230 mg/dL (60-115)
[2023-10-31] MEDS: 0.9 % Sodium Chloride Flush 3 ML SYRINGE IVFLUSH (16:49)
[2023-10-31 21:09] LABS: Glucose, Whole Blood 267 mg/dL (60-115)
[2023-10-31] MEDS: Norepinephrine Bitartrate/D5W 8 MG/250 ML PLAST..BAG 13.95 MG IV (21:17)
[2023-10-31 21:24] LABS: PTT Heparin Drip 64.6 SEC (53-77.9)
[2023-11-01] VITALS (31 sets, daily range): BP systolic 86–153; BP diastolic 37–120; PULSE 52–116; RESP 15–33; TEMP 37.1–37.9; O2SAT 90–100; BMI 35.1
[2023-11-01] MEDS: Acetaminophen 325 MG TABLET 650 MG PO (00:13)
[2023-11-01] MEDS: Albumin Human 25 % 100 ML IV ×2 (00:50→07:54)
[2023-11-01] MEDS: 0.9 % Sodium Chloride Flush 3 ML SYRINGE IVFLUSH ×3 (00:52→17:11)
[2023-11-01] MEDS: Heparin Sodium,Porcine/1/2NS 25,000 UNIT/250 ML IV.SOLN 14.88 UNIT IVCONT ×2 (02:49→20:20)
[2023-11-01 03:22] LABS: PTT Heparin Drip 66.6 SEC (53-77.9)
[2023-11-01 05:01] LABS: VBG Base Excess -8.4 mmol/L; VBG HCO3 16 mmol/L (22-26); VBG pCO2 31 mmHg; VBG pH 7.32 (7.32-7.43); VBG pO2 40 mmHg
[2023-11-01 05:20] LABS: MANUAL DIFF FLAG NO
[2023-11-01 05:24] LABS: Basophils Percent Auto 0.2 % (0-2); Eosinophils Absolute Auto 0.6 X10*3/uL (0.0-0.4); Eosinophils Percent Auto 4.4 % (0-4); Hematocrit 37.5 % (42.0-52.0); Hemoglobin 12.3 g/dl (14.0-18.0); Imm Gran Abs Auto 0.08 X10*3/uL (0.00-0.03); Imm Gran Pct Auto 0.6 % (0.0-0.4); Lymphocytes Absolute Auto 2.2 X10*3/uL (1.2-4.9); Lymphocytes Percent Auto 16.4 % (20-40); Mean Corpuscular HGB Conc 32.8 g/dl (31.0-36.0); Mean Corpuscular Hemoglobin 29.6 pg (27.0-33.0); Mean Corpuscular Volume 90.1 fL (80.0-98.0); Mean Platelet Volume 10.9 fL (9.4-12.4); Monocytes Absolute Auto 0.6 X10*3/uL (0.1-1.2); Monocytes Percent Auto 4.2 % (2-11); Neutrophils Absolute Auto 9.8 x10*3/uL (2.0-8.3); Neutrophils Percent Auto 74.2 % (45-73); Platelet Count 187 X10*3/uL (160-400); Red Blood Count 4.16 X10*6/uL (4.60-5.80); Red Cell Distribution Width 13.2 % (11.0-16.0); White Blood Count 13.2 X10*3/uL (4.8-10.8)
[2023-11-01 05:38] LABS: Albumin Level 3.7 g/dL (3.5-5.0); Anion Gap 19 (12-20); Blood Urea Nitrogen 24 mg/dL (9-16); Calcium 8.8 mg/dL (8.4-10.2); Carbon Dioxide 15 mmol/L (22-29); Chloride 107 mmol/L (96-108); Estimated Glomerular Filt Rate 49; Glucose Random 228 mg/dL (60-115); Phosphorus 2.8 mg/dL (2.7-4.5); Potassium 3.9 mmol/L (3.3-5.1); Sodium 137 mmol/L (135-145)
[2023-11-01] MEDS: Omeprazole 20 MG CAPSULE.DR PO (06:10)
[2023-11-01 06:23] LABS: Venous Blood Gas Refer to POC result
[2023-11-01 07:44] LABS: Glucose, Whole Blood 195 mg/dL (60-115)
[2023-11-01] MEDS: Insulin Lispro 100 UNIT/ML 3 ML VIAL SUBCUT ×4 (07:55→21:52)
[2023-11-01] MEDS: Atorvastatin Calcium 80 MG TABLET PO (07:55)
[2023-11-01] MEDS: Cyanocobalamin (Vitamin B-12) 1,000 MCG TABLET 1000 MCG PO (07:55)
[2023-11-01] MEDS: Fenofibrate 160 MG TABLET PO (07:55)
[2023-11-01] MEDS: Cholecalciferol (Vitamin D3) 25 MCG TABLET 125 MCG PO (07:55)
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
[2023-11-01] MEDS: diphenhydrAMINE HCL 50 MG/ML VIAL 25 MG IVPUSH ×3 (11:07→20:30)
[2023-11-01 11:32] LABS: Glucose, Whole Blood 279 mg/dL (60-115)
[2023-11-01] MEDS: cefTRIAXone sodium 1 GM in 0.9 % Sodium Chloride 50 ML IV (12:45)
[2023-11-01 16:10] LABS: Glucose, Whole Blood 180 mg/dL (60-115)
[2023-11-01 21:52] LABS: Glucose, Whole Blood 226 mg/dL (60-115)
[2023-11-02] VITALS (14 sets, daily range): BP systolic 106–154; BP diastolic 39–101; PULSE 86–107; RESP 18–25; TEMP 36–37; O2SAT 92–100; BMI 35.1
[2023-11-02] MEDS: Omeprazole 20 MG CAPSULE.DR PO (04:47)
[2023-11-02 04:56] LABS: MANUAL DIFF FLAG NO
[2023-11-02 04:58] LABS: Basophils Percent Auto 0.2 % (0-2); Eosinophils Absolute Auto 0.9 X10*3/uL (0.0-0.4); Eosinophils Percent Auto 6.9 % (0-4); Hematocrit 34.9 % (42.0-52.0); Imm Gran Pct Auto 0.7 % (0.0-0.4); Lymphocytes Percent Auto 14.4 % (20-40); Mean Corpuscular HGB Conc 34.4 g/dl (31.0-36.0); Mean Corpuscular Volume 87.3 fL (80.0-98.0); Mean Platelet Volume 10.3 fL (9.4-12.4); Monocytes Absolute Auto 0.5 X10*3/uL (0.1-1.2); Monocytes Percent Auto 3.8 % (2-11); Platelet Count 193 X10*3/uL (160-400); Red Cell Distribution Width 13.3 % (11.0-16.0); White Blood Count 13.5 X10*3/uL (4.8-10.8)
[2023-11-02 05:00] LABS: VBG Base Excess -2.2 mmol/L; VBG HCO3 20 mmol/L (22-26); VBG pCO2 27 mmHg; VBG pH 7.46 (7.32-7.43); VBG pO2 67 mmHg; Venous Blood Gas Refer to POC result
[2023-11-02 05:13] LABS: Albumin Level 3.6 g/dL (3.5-5.0); Anion Gap 18 (12-20); Blood Urea Nitrogen 20 mg/dL (9-16); Calcium 8.9 mg/dL (8.4-10.2); Carbon Dioxide 19 mmol/L (22-29); Chloride 105 mmol/L (96-108); Creatinine Clr Calc Pharmacy 87.4; Estimated Glomerular Filt Rate > 60; Glucose Random 179 mg/dL (60-115); Magnesium 1.9 mg/dL (1.6-2.6); Phosphorus 1.6 mg/dL (2.7-4.5); Potassium 3.6 mmol/L (3.3-5.1); Sodium 138 mmol/L (135-145)
[2023-11-02 06:01] LABS: PTT Heparin Drip 63.7 SEC (53-77.9)
[2023-11-02] MEDS: Potassium Phosphate/NS 15 MMOL/250 ML PLAST..BAG 62.5 MMOL IV ×2 (06:04→11:11)
[2023-11-02 07:39] LABS: Glucose, Whole Blood 214 mg/dL (60-115)
[2023-11-02] MEDS: Cholecalciferol (Vitamin D3) 25 MCG TABLET 125 MCG PO (08:12)
[2023-11-02] MEDS: 0.9 % Sodium Chloride Flush 3 ML SYRINGE IVFLUSH ×3 (08:13→21:33)
[2023-11-02] MEDS: Cyanocobalamin (Vitamin B-12) 1,000 MCG TABLET 1000 MCG PO (08:13)
[2023-11-02] MEDS: Atorvastatin Calcium 80 MG TABLET PO (08:13)
[2023-11-02] MEDS: Fenofibrate 160 MG TABLET PO (08:13)
[2023-11-02] MEDS: Insulin Lispro 100 UNIT/ML 3 ML VIAL SUBCUT ×4 (08:14→21:32)
[2023-11-02] MEDS: diphenhydrAMINE HCL 50 MG/ML VIAL 25 MG IVPUSH (08:15)
--- NOTE | 2023-11-02 09:11 | P.PNVS_ITS ---
Subjective Subjective Date of Service: 11/02/23 Patient reports: no new complaints and feels better Interval history: Patient seen and examined. Events postprocedure were noted. He became hypotensive and was concerned about septic shock. He was transferred to the ICU and did require pressors. At the current time appears to be doing significantly better. Now presents for follow-up. Physical Exam Vital Signs: Vital Signs: Last Vital Signs Temp 97.8 F 11/02/23 08:00 Pulse 95 11/02/23 08:00 Resp 20 11/02/23 08:00 BP 125/72 11/02/23 08:00 Pulse Ox 100 11/02/23 08:00 O2 Del Method Room Air 11/02/23 08:00 O2 Flow Rate 2 11/01/23 06:00 FiO2 28 11/01/23 07:00 BMI result Body Mass Index 35.1 Const: General: cooperative, healthy appearing and no acute distress Orientation/consciousness: oriented to person, oriented to place and oriented to time HEENT: Head: Yes normal to inspection Neck: Carotids: no bruits Chest: Chest palpation & inspection: normal inspection of the chest Resp: Effort & Inspection: normal respiratory effort and able to speak in complete sentences Auscultation: clear to auscultation bilaterally Cardio: Rate: regular rate Heart sounds: S1 normal heart sound present and S2 normal heart sound present GI: Inspection: Yes normal to inspection Skin: General skin exam: no rashes or lesions noted Wounds: no wounds Neuro: General: oriented to person, oriented to place, oriented to time and CN's II-XI intact bilaterally Extrem: Other: Bilateral +1 edema General: Yes normal to inspection and Yes full ROM Right upper extremity: edema Psych: Appearance: grossly normal and well kempt Speech and movement: Normal speech and movement present Affect: normal affect Progress Note: A&P Assessment and plan (1) DVT (deep venous thrombosis): Status: Chronic Assessment and Plan: In short patient is doing well status post left lower extremity mechanical venous thrombectomy. Unclear what occurred was it in terms of sepsis or his PE. At the current time it does appear to be resolving. He is currently on heparin drip. He can be transitioned over to p.o. anticoagulants. And then we can follow-up as an outpatient. I did discuss all this with the patient and assembly technician was present during time of discussion. Thank you for allowing us to assist in his care. If there are any questions or concerns please do not hesitate to contact us. Time Spent With Patient Time: Total time managing care of this patient today ____ minutes. Procedures Date of Service Date of Service: 11/02/23 Quality Stroke Does the patient have a stroke diagnosis?: No VTE Prior VTE?: No VTE Risk Level:: Medical - moderate - high VTE Device Contraindication: Treatment Not Indicated VTE Drug Contraindication: N/A - Med Ordered
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
[2023-11-02 11:48] LABS: Glucose, Whole Blood 186 mg/dL (60-115)
[2023-11-02] MEDS: cefTRIAXone sodium 1 GM in 0.9 % Sodium Chloride 50 ML IV (12:05)
[2023-11-02] MEDS: Heparin Sodium,Porcine/1/2NS 25,000 UNIT/250 ML IV.SOLN 14.88 UNIT IVCONT (12:44)
--- NOTE | 2023-11-02 14:38 | PC.NURSE ---
Received pt from ICU to room 461. IV site to lt lower arm infiltrated , LT lower arm nonpitting edema , pt denied pain to his arm , positive radial pulses IV stopped , pt stated my arm feels tight BANKRUPTCY ASSISTANT is at the bedside inserting new IV. Dr Greenfield was notified
[2023-11-02 17:11] LABS: Glucose, Whole Blood 177 mg/dL (60-115)
[2023-11-02] MEDS: Apixaban 5 MG TABLET 10 MG PO (21:32)
[2023-11-02 21:36] LABS: Glucose, Whole Blood 238 mg/dL (60-115)
[2023-11-03] VITALS: BP 114/57; PULSE 98; RESP 18; TEMP 37.1; O2SAT 97
[2023-11-03] MEDS: diphenhydrAMINE HCL 50 MG/ML VIAL 25 MG IVPUSH (00:13)
[2023-11-03 03:59] VITALS: BP 124/66; RESP 104; TEMP 37; O2SAT 96
[2023-11-03] MEDS: methylPREDNISolone Sod Succ 125 MG/2 ML VIAL 80 MG IVPUSH (04:00)
[2023-11-03] MEDS: Loratadine 10 MG TABLET PO (04:01)
--- NOTE | 2023-11-03 04:11 | PM.EVENT ---
Event Note Date of Service: 11/03/23 Event Note: 3:41 AM - Contacted by nursing to notify patient has a generalized red warm rash. Cause is unclear: got Zosyn, vancomycin as well as contrast dye. Received Benadryl 25 mg IV at midnight but this is not helping. Tx with Solu-Medrol 80 mg IV X1 and Claritin ordered. Time Spent With Patient Time: Total time managing care of this patient today ____ minutes.
[2023-11-03 06:00] VITALS: BMI 36.4
[2023-11-03] MEDS: Omeprazole 20 MG CAPSULE.DR PO (06:30)
[2023-11-03 06:49] LABS: MANUAL DIFF FLAG NO
[2023-11-03 07:06] LABS: PTT Heparin Drip 31.8 SEC (53-77.9)
[2023-11-03 07:18] LABS: Basophils Absolute Auto 0.1 X10*3/uL (0.0-0.2); Basophils Percent Auto 0.4 % (0-2); Eosinophils Percent Auto 6.8 % (0-4); Hematocrit 37.1 % (42.0-52.0); Hemoglobin 12.6 g/dl (14.0-18.0); Imm Gran Abs Auto 0.13 X10*3/uL (0.00-0.03); Imm Gran Pct Auto 0.9 % (0.0-0.4); Lymphocytes Absolute Auto 1.5 X10*3/uL (1.2-4.9); Lymphocytes Percent Auto 10.3 % (20-40); Mean Corpuscular Hemoglobin 29.9 pg (27.0-33.0); Mean Corpuscular Volume 87.9 fL (80.0-98.0); Monocytes Absolute Auto 0.4 X10*3/uL (0.1-1.2); Monocytes Percent Auto 2.5 % (2-11); Neutrophils Absolute Auto 11.3 x10*3/uL (2.0-8.3); Neutrophils Percent Auto 79.1 % (45-73); Platelet Count 205 X10*3/uL (160-400); Red Blood Count 4.22 X10*6/uL (4.60-5.80); Red Cell Distribution Width 13.5 % (11.0-16.0); White Blood Count 14.2 X10*3/uL (4.8-10.8)
[2023-11-03 07:21] LABS: Anion Gap 15 (12-20); Blood Urea Nitrogen 20 mg/dL (9-16); Calcium 8.7 mg/dL (8.4-10.2); Carbon Dioxide 20 mmol/L (22-29); Chloride 106 mmol/L (96-108); Creatinine Clr Calc Pharmacy 93.3; Estimated Glomerular Filt Rate > 60; Glucose Random 231 mg/dL (60-115); Magnesium 2.1 mg/dL (1.6-2.6); Phosphorus 1.9 mg/dL (2.7-4.5); Sodium 137 mmol/L (135-145)
[2023-11-03 07:25] LABS: Glucose, Whole Blood 235 mg/dL (60-115)
[2023-11-03 07:27] VITALS: BP 111/59; PULSE 90; RESP 18; TEMP 36.3; O2SAT 95
[2023-11-03] MEDS: Insulin Lispro 100 UNIT/ML 3 ML VIAL SUBCUT ×4 (07:54→22:15)
[2023-11-03] MEDS: 0.9 % Sodium Chloride Flush 3 ML SYRINGE IVFLUSH ×3 (07:56→22:16)
[2023-11-03] MEDS: Atorvastatin Calcium 80 MG TABLET PO (07:57)
[2023-11-03] MEDS: Apixaban 5 MG TABLET 10 MG PO ×2 (07:57→22:14)
[2023-11-03] MEDS: Fenofibrate 160 MG TABLET PO (07:58)
[2023-11-03] MEDS: Cholecalciferol (Vitamin D3) 25 MCG TABLET 125 MCG PO (07:58)
[2023-11-03] MEDS: Cyanocobalamin (Vitamin B-12) 1,000 MCG TABLET 1000 MCG PO (07:58)
[2023-11-03] MEDS: diphenhydrAMINE HCL 25 MG CAPSULE PO ×3 (11:04→22:14)
[2023-11-03 11:13] LABS: Glucose, Whole Blood 326 mg/dL (60-115)
[2023-11-03 11:23] VITALS: BP 130/84; PULSE 92; RESP 18; TEMP 36.3; O2SAT 95
[2023-11-03] MEDS: cefTRIAXone sodium 1 GM in 0.9 % Sodium Chloride 50 ML IV (12:53)
[2023-11-03] MEDS: predniSONE 20 MG TABLET 40 MG PO (13:59)
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
--- NOTE | 2023-11-03 14:02 | HO.PM.IMPN ---
Subjective Subjective Date of Service: 11/03/23 Interval History: pulm emboli,diffuse rash Review of Systems ? antibiotcs (?zosyn related)-given steriods overnight. no fevers Physical Exam Vital Signs: Vital Signs: Last Vital Signs Temp 97.3 F 11/03/23 11:23 Pulse 92 11/03/23 11:23 Resp 18 11/03/23 11:23 BP 130/84 11/03/23 11:23 Pulse Ox 95 11/03/23 11:23 O2 Del Method Room Air 11/03/23 11:23 O2 Flow Rate 2 11/01/23 06:00 FiO2 28 11/01/23 07:00 BMI result Body Mass Index 36.4 Appearance: Alert.? Oriented X3.? cvs: rrr, [id number]. res: air entry fair ,no rales or wheezing abd: no rebound or guarding ,nt, bs present. ext pulses present , no cyanosis . neuro: axo3 , nonfocal. Objective Data Active Medications Acetaminophen (Acetaminophen 325 Mg Tablet) 650 mg PO Q6H PRN PRN Reason: Pain, Mild (Pain Scale 1-3) Last Admin: 10/30/23 23:54 Dose: 650 mg Documented By: CASSIE Apixaban (Apixaban 5 Mg Tablet) 10 mg PO BID [facility] Stop: 11/09/23 09:01 Last Admin: 11/03/23 07:57 Dose: 10 mg Documented By: RUBIMORP Atorvastatin Calcium (Atorvastatin Calcium 80 Mg Tablet) 80 mg PO DAILY [facility] Last Admin: 11/03/23 07:57 Dose: 80 mg Documented By: PODMORP Benzonatate (Benzonatate 100 Mg Capsule) 100 mg PO TID PRN PRN Reason: Cough Cyanocobalamin (Cyanocobalamin (Vitamin B-12) 1,000 Mcg Tablet) 1,000 mcg PO DAILY [facility] Last Admin: 11/03/23 07:58 Dose: 1,000 mcg Documented By: RUBIMORP Diphenhydramine HCl (Diphenhydramine Hcl 50 Mg/Ml Vial) 25 mg IVPUSH Q6H PRN PRN Reason: itching Last Admin: 11/03/23 00:13 Dose: 25 mg Documented By: TANISHA Comments: itchiness Diphenhydramine HCl (Diphenhydramine Hcl 25 Mg Capsule) 25 mg PO Q6H [facility] Last Admin: 11/03/23 11:04 Dose: 25 mg Documented By: RUBIMORP Docusate Sodium (Docusate Sodium 100 Mg Capsule) 100 mg PO DAILY PRN PRN Reason: Constipation Fenofibrate (Fenofibrate 160 Mg Tablet) 160 mg PO DAILY [facility] Last Admin: 11/03/23 07:58 Dose: 160 mg Documented By: RUBIMORP Fentanyl (Fentanyl Citrate/Pf 100 Mcg/2 Ml Vial) 25 mcg IVPUSH Q3H PRN; Protocol PRN Reason: Pain, Moderate(Pain Scale 4-6) Last Admin: 10/31/23 20:00 Dose: 25 mcg Documented By: JIM Glucose (Glucose Gel 15 Gm Gel..Gram.) 15 gm PO Q15M PRN; Protocol PRN Reason: per Hypoglycemia Standing Ord. Dextrose (D10) 250 mls @ 750 mls/hr IV Q15M PRN; Protocol PRN Reason: per Hypoglycemia Standing Ord. Insulin Human Lispro (Insulin Lispro 100 Unit/Ml 3 Ml Vial) 0 unit SUBCUT QIDACHS [facility]; Protocol Last Admin: 11/03/23 11:50 Dose: 8 unit Documented By: VASILE Loratadine (Loratadine 10 Mg Tablet) 10 mg PO DAILY [facility] Last Admin: 11/03/23 04:01 Dose: 10 mg Documented By: TANISHA Melatonin (Melatonin 3 Mg Tablet) 6 mg PO BEDTIME PRN PRN Reason: Insomnia Omeprazole (Omeprazole 20 Mg Capsule.) 20 mg PO DAILY@0630 [facility] Last Admin: 11/03/23 06:30 Dose: 20 mg Documented By: TANISHA Ondansetron HCl (Ondansetron Hcl 4 Mg/2 Ml Vial) 4 mg IVPUSH Q8H PRN PRN Reason: Nausea and Vomiting Prednisone (Prednisone 20 Mg Tablet) 40 mg PO DAILY [facility] Last Admin: 11/03/23 13:59 Dose: 40 mg Documented By: RUBIMORP Sodium Chloride (0.9 % Sodium Chloride Flush 3 Ml Syringe) 3 ml IVFLUSH QSHIFT [facility] Last Admin: 11/03/23 07:56 Dose: 3 ml Documented By: RUBIMORP Vitamin D (Cholecalciferol (Vitamin D3) 25 Mcg Tablet) 125 mcg PO DAILY [facility] Last Admin: 11/03/23 07:58 Dose: 125 mcg Documented By: VASILE Labs 11/03/23 06:20 11/03/23 06:20 Labs: Laboratory Results - last 24 hr 11/02/23 11/02/23 11/03/23 17:00 21:25 06:20 MCV 87.9 MCH 29.9 MCHC 34.0 RDW 13.5 Plt Count 205 MPV 11.0 Immature Gran % (Auto) 0.9 H Neut % (Auto) 79.1 H Lymph % (Auto) 10.3 L [place] % (Auto) 2.5 Eos % (Auto) 6.8 H Baso % (Auto) 0.4 Lymph # (Auto) 1.5 [place] # (Auto) 0.4 Eos # (Auto) 1.0 H Baso # (Auto) 0.1 Abs Immat Gran (auto) 0.13 H Absolute Neuts (auto) 11.3 H Absolute Nucleated RBC 0.000 Nucleated RBC % (auto) 0.0 aPTT Heparin Protocol 31.8 L D Anion Gap 15 Estim Creat Clear Calc 93.3 Estimated GFR > 60 POC Glucose 177 H 238 H Random Glucose 231 H Calcium 8.7 Phosphorus 1.9 L Magnesium 2.1 11/03/23 11/03/23 07:09 11:10 MCV MCH MCHC RDW Plt Count MPV Immature Gran % (Auto) Neut % (Auto) Lymph % (Auto) [place] % (Auto) Eos % (Auto) Baso % (Auto) Lymph # (Auto) [place] # (Auto) Eos # (Auto) Baso # (Auto) Abs Immat Gran (auto) Absolute Neuts (auto) Absolute Nucleated RBC Nucleated RBC % (auto) aPTT Heparin Protocol Anion Gap Estim Creat Clear Calc Estimated GFR POC Glucose 235 H 326 H Random Glucose Calcium Phosphorus Magnesium Assessment and Plan (1) JOSUE (acute kidney injury): Status: Acute (2) Bilateral pulmonary embolism: Status: Acute Assessment and Plan: 57-year-old gentleman admitted with dyspnea secondary to acute on chronic pulmonary emboli and extensive DVT, now status post mechanical thrombectomy, hospital course further complicated by distributive shock. b/l pulm emboli status post mechanical thrombectomy: also recieved lovenox intially -then switched to IV heparin while in ICU-now on eliquis . Hypotension/distributive shock thought to be related to JOSUE/pulm emboli s/pmechanical thrombectomy: s/p iv pressors , fluids ,also given emperic antibiotics ua neg ,cxr/ct -basilar opacity but patient denies any symptoms, blood culture x4 negative d/w Id and ICu -less likley infectious etiology for above , stop antibiotics. josue improved with hydration. generlaised body rash-? zosyn realted added staeriods and bemadryl. dm with hyperglycemia dm diet fs with coverage ,added lantus 10 units . Htn: bp fluctuating hold lisinopril for now hlp:continue statin. morbid obesity-encouraged to lose weight /cut down calories. dvt prophylax: eliquis Ongoing hospitalization need:b/l pum emboli ,generlaised body rash- need respiratory and monitering for rash-also need steriods /bendryl, Id eval. Quality Stroke Does the patient have a stroke diagnosis?: No VTE Prior VTE?: No VTE Risk Level:: Medical - moderate - high VTE Device Contraindication: Treatment Not Indicated VTE Drug Contraindication: N/A - Med Ordered
[2023-11-03 15:38] VITALS: BP 126/85; PULSE 92; RESP 18; TEMP 36.4; O2SAT 95
[2023-11-03 16:50] LABS: Glucose, Whole Blood 290 mg/dL (60-115)
[2023-11-03 20:00] VITALS: BP 157/84; PULSE 85; RESP 18; TEMP 36.5; O2SAT 92
[2023-11-03 20:49] LABS: Glucose, Whole Blood 309 mg/dL (60-115)
[2023-11-03] MEDS: Insulin Glargine,Hum.rec.anlog 100 UNIT/ML 10 ML VIAL 10 UNIT SUBCUT (22:15)
[2023-11-04] VITALS: BP 123/59; PULSE 84; RESP 20; TEMP 36.1; O2SAT 95
[2023-11-04 03:58] VITALS: BP 110/56; PULSE 75; RESP 20; TEMP 36.1; O2SAT 94
[2023-11-04] MEDS: diphenhydrAMINE HCL 25 MG CAPSULE PO ×2 (04:20→08:42)
[2023-11-04 05:26] VITALS: BMI 36.6
[2023-11-04] MEDS: Omeprazole 20 MG CAPSULE.DR PO (06:20)
[2023-11-04 08:00] VITALS: BP 139/82; PULSE 85; RESP 20; TEMP 36.1; O2SAT 93
[2023-11-04 08:20] LABS: Glucose, Whole Blood 298 mg/dL (60-115)
[2023-11-04] MEDS: Cholecalciferol (Vitamin D3) 25 MCG TABLET 125 MCG PO (08:41)
[2023-11-04] MEDS: Insulin Lispro 100 UNIT/ML 3 ML VIAL SUBCUT ×3 (08:41→12:28)
[2023-11-04] MEDS: Atorvastatin Calcium 80 MG TABLET PO (08:41)
[2023-11-04] MEDS: Fenofibrate 160 MG TABLET PO (08:41)
[2023-11-04] MEDS: Loratadine 10 MG TABLET PO (08:42)
[2023-11-04] MEDS: 0.9 % Sodium Chloride Flush 3 ML SYRINGE IVFLUSH (08:42)
[2023-11-04] MEDS: Apixaban 5 MG TABLET 10 MG PO (08:42)
[2023-11-04] MEDS: Cyanocobalamin (Vitamin B-12) 1,000 MCG TABLET 1000 MCG PO (08:42)
[2023-11-04] MEDS: predniSONE 20 MG TABLET 40 MG PO (08:42)
--- NOTE | 2023-11-04 11:31 | P.CDIM_ITS ---
PROVIDER RESPONSE TEXT: To clarify, the appropriate diagnosis supported by the clinical indicators: Acute QUERY TEXT: PHYSICIAN'S DOCUMENTATION REQUEST Date of Query: 11/04/2023 07:39 AM EDT Patient Name: Sam Honeycutt Admit Date: 10/29/2023 Dear Fiona Deras, A review of the medical record indicates additional documentation may be needed. Please review below and update the documentation accordingly. Clinical Indicators: ICU consult note dated 10/30 - Metabolic acidosis - pt does have a history of diabetes, but does not h ave elevated anion gap in blood glucose controlled. Clarify which of the following accurately represents the acuity of the Metabolic acidosis: Possible options might include with this diagnosis within the body of the written plan: Acute Acute on chronic Other (explain) Clinically unable to determine (explain) Thank you, Es Boggs, CCS, CDIS Use of terms such as suspected, likely, concern for, or probable (associated with a specific diagnosi s that is being evaluated, monitored, or treated as if it exists) are acceptable and can be coded in the inpatient se tting, when documented at the time of discharge. Please use your independent medical judgment in providing your response. THIS QUERY IS PART OF THE PERMANENT MEDICAL RECORD
[2023-11-04 11:47] LABS: Glucose, Whole Blood 365 mg/dL (60-115)
[2023-11-04 12:00] VITALS: BP 169/93; PULSE 80; RESP 16; TEMP 36.1; O2SAT 95
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
[2023-11-04] MEDS: Insulin Glargine,Hum.rec.anlog 100 UNIT/ML 10 ML VIAL 10 UNIT SUBCUT (12:29)
--- NOTE | 2023-11-04 12:36 | MHC.CM.PN ---
Second IMM given 11/03. Pt is medically cleared for discharge home self-care. Pt has arranged for his own transportation home.
== END 2023-11-04 15:05 | disposition home or self-care (01) | DRG 270 ==
LOC: HO.ED 14:41 → HO.EDOVER 15:55 → HO.IMC 10-30 05:59 → HO.ICU 10-31 01:54 → HO.IMC 11-02 12:51
PROVIDERS: Internal Medicine; Internal Medicine Pulmonary Disease; Nurse Practitioner Family; Registered Nurse Community Health; Student in an Organized Health Care Education/Training Program; Surgery Vascular Surgery; Admitting Provider Student in an Organized Health Care Education/Training Program; Emergency Provider Emergency Medicine; PCP Internal Medicine; Visit Provider Internal Medicine
PROC: 06CG3ZZ Extirpation of Matter from Left External Iliac Vein, Percutaneous Approach (ICD-10-PCS; principal; 2023-10-30 11:00)
DX: I82.432 Acute embolism and thrombosis of left popliteal vein (principal); I26.99 Other pulmonary embolism without acute cor pulmonale; J96.01 Acute respiratory failure with hypoxia; R57.8 Other shock; N17.9 Acute kidney failure, unspecified; E87.21 Acute metabolic acidosis; I82.531 Chronic embolism and thrombosis of right popliteal vein; I82.412 Acute embolism and thrombosis of left femoral vein; E11.65 Type 2 diabetes mellitus with hyperglycemia; E66.01 Morbid (severe) obesity due to excess calories; L27.0 Generalized skin eruption due to drugs and medicaments taken internally; T36.0X5A Adverse effect of penicillins, initial encounter; Z20.822 Contact with and (suspected) exposure to COVID-19; E11.42 Type 2 diabetes mellitus with diabetic polyneuropathy; E78.5 Hyperlipidemia, unspecified; Z68.36 Body mass index [BMI] 36.0-36.9, adult; Z79.85 Long-term (current) use of injectable non-insulin antidiabetic drugs; Z79.899 Other long term (current) drug therapy
CPT/HCPCS: 0241U; 36415; 37187; 71045; 71046; 71260; 71275; 74177; 76937; 80048; 80053; 81001; 82040; 82570; 82803; 82947; 83605; 83735; 83880; 84100; 84300; 84484; 85025; 85027; 85610; 85730; 87040; 92950; 93005; 93306; 93970; 99152; 99153; 99285; C1725; C1757; C1887; J0696; J1170; J1200; J1644; J1650; J2270; J2405; J2543; J2919; J3010; J3370; J7120; P9047; Q9957; Q9967

== ENCOUNTER → 2023-10-29 09:32 | Outpatient (BNV) | payer OTHER, SELFPAY | PROVIDERS: Emergency Provider Emergency Medicine; PCP Internal Medicine; Visit Provider Internal Medicine Cardiovascular Disease | DX: R94.31 Abnormal electrocardiogram [ECG] [EKG] (principal) | CPT/HCPCS: 93010 ==

== ENCOUNTER 2023-10-29 15:43 | Outpatient (BNV) | payer OTHER, SELFPAY | END 2023-10-30 07:00 | PROVIDERS: Admitting Provider Student in an Organized Health Care Education/Training Program; Emergency Provider Emergency Medicine; PCP Internal Medicine; Visit Provider Internal Medicine Cardiovascular Disease | DX: R93.1 Abnormal findings on diagnostic imaging of heart and coronary circulation (principal) | CPT/HCPCS: 93306 ==

== ENCOUNTER → 2023-10-29 15:43 | Outpatient (BNV) | payer OTHER, SELFPAY | PROVIDERS: Admitting Provider Student in an Organized Health Care Education/Training Program; Emergency Provider Emergency Medicine; PCP Internal Medicine; Visit Provider Student in an Organized Health Care Education/Training Program | DX: N17.9 Acute kidney failure, unspecified (principal); I26.99 Other pulmonary embolism without acute cor pulmonale | CPT/HCPCS: 99223; 99231; 99233; 99239; 99499 ==

== ENCOUNTER → 2023-10-29 15:43 | Outpatient (BNV) | payer OTHER, SELFPAY | PROVIDERS: Admitting Provider Student in an Organized Health Care Education/Training Program; Emergency Provider Emergency Medicine; PCP Internal Medicine; Visit Provider Surgery Vascular Surgery | DX: I82.531 Chronic embolism and thrombosis of right popliteal vein (principal) | CPT/HCPCS: 37187; 37248; 37249; 76937; 99152; 99223; 99232 ==

== ENCOUNTER → 2023-10-29 15:43 | Outpatient (BNV) | payer OTHER, SELFPAY | PROVIDERS: Admitting Provider Student in an Organized Health Care Education/Training Program; Emergency Provider Emergency Medicine; PCP Internal Medicine; Visit Provider Internal Medicine | DX: I26.99 Other pulmonary embolism without acute cor pulmonale (principal); I82.402 Acute embolism and thrombosis of unspecified deep veins of left lower extremity | CPT/HCPCS: 99222 ==

== ENCOUNTER → 2023-10-29 15:43 | Outpatient (BNV) | payer OTHER, SELFPAY | PROVIDERS: Admitting Provider Student in an Organized Health Care Education/Training Program; Emergency Provider Emergency Medicine; PCP Internal Medicine; Visit Provider Internal Medicine | DX: J96.01 Acute respiratory failure with hypoxia (principal); I26.99 Other pulmonary embolism without acute cor pulmonale | CPT/HCPCS: 99222 ==

== ENCOUNTER → 2023-10-29 15:43 | Outpatient (BNV) | payer OTHER, SELFPAY | PROVIDERS: Admitting Provider Student in an Organized Health Care Education/Training Program; Emergency Provider Emergency Medicine; PCP Internal Medicine; Visit Provider Internal Medicine Pulmonary Disease | DX: N17.9 Acute kidney failure, unspecified (principal); E87.20 Acidosis, unspecified; I26.99 Other pulmonary embolism without acute cor pulmonale; I73.9 Peripheral vascular disease, unspecified; E11.65 Type 2 diabetes mellitus with hyperglycemia; Z79.4 Long term (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 | CPT/HCPCS: 99232; 99291 ==

== ENCOUNTER → 2023-10-29 15:43 | Outpatient (BNV) | payer OTHER, SELFPAY | PROVIDERS: Admitting Provider Student in an Organized Health Care Education/Training Program; Emergency Provider Emergency Medicine; PCP Internal Medicine; Visit Provider Registered Nurse Community Health | DX: A41.9 Sepsis, unspecified organism (principal); R65.21 Severe sepsis with septic shock; E87.20 Acidosis, unspecified; J96.01 Acute respiratory failure with hypoxia; I26.99 Other pulmonary embolism without acute cor pulmonale; I82.531 Chronic embolism and thrombosis of right popliteal vein; N17.9 Acute kidney failure, unspecified | CPT/HCPCS: 99291 ==

== ENCOUNTER 2023-11-13 08:01 | Outpatient (AMB) | payer OTHER, SELFPAY ==
[2023-11-13 08:07] VITALS: BP 112/70; PULSE 100; O2SAT 96; BMI 35.9
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
== END 2023-11-13 08:59 | disposition home or self-care (01) ==
PROVIDERS: PCP Internal Medicine; Visit Provider Nurse Practitioner Family
DX: E11.65 Type 2 diabetes mellitus with hyperglycemia (principal); Z79.4 Long term (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; I26.99 Other pulmonary embolism without acute cor pulmonale; I82.531 Chronic embolism and thrombosis of right popliteal vein; R21 Rash and other nonspecific skin eruption
CPT/HCPCS: 83036; 99214

== ENCOUNTER 2023-11-17 10:32 | Outpatient (AMB) | payer OTHER, SELFPAY ==
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
[2023-11-17 10:40] VITALS: BMI 35.9
== END 2023-11-17 10:59 | disposition home or self-care (01) ==
PROVIDERS: PCP Internal Medicine; Visit Provider Surgery Vascular Surgery
DX: I82.531 Chronic embolism and thrombosis of right popliteal vein (principal)
CPT/HCPCS: 99213

== ENCOUNTER → 2023-11-17 10:32 | Outpatient (BNVA) | payer OTHER, SELFPAY | PROVIDERS: PCP Internal Medicine; Visit Provider Surgery Vascular Surgery | DX: Z48.89 Encounter for other specified surgical aftercare (principal); I82.531 Chronic embolism and thrombosis of right popliteal vein; Z98.890 Other specified postprocedural states | CPT/HCPCS: 99212 ==

== ENCOUNTER 2023-11-24 07:51 | Outpatient (AMB) | payer OTHER, SELFPAY ==
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
== END 2023-11-24 08:24 | disposition home or self-care (01) ==
PROVIDERS: PCP Internal Medicine; Visit Provider Registered Nurse Diabetes Educator
DX: E11.65 Type 2 diabetes mellitus with hyperglycemia (principal); Z79.4 Long term (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

== ENCOUNTER → 2023-11-24 07:51 | Outpatient (BNVA) | payer OTHER, SELFPAY | PROVIDERS: PCP Internal Medicine; Visit Provider Registered Nurse Diabetes Educator | DX: E11.65 Type 2 diabetes mellitus with hyperglycemia (principal); Z79.4 Long term (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 | CPT/HCPCS: 99211 ==

== ENCOUNTER 2023-11-25 13:54 | Outpatient (AMB) | payer OTHER, SELFPAY ==
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
[2023-11-25 14:05] VITALS: PULSE 110; O2SAT 98
== END 2023-11-25 14:19 | disposition home or self-care (01) ==
LOC: HO.HID 13:54
PROVIDERS: PCP Internal Medicine; Visit Provider Internal Medicine
DX: N17.9 Acute kidney failure, unspecified (principal)
CPT/HCPCS: 99213

== ENCOUNTER → 2023-11-25 13:54 | Outpatient (BNVA) | payer OTHER, SELFPAY | PROVIDERS: PCP Internal Medicine; Visit Provider Internal Medicine | DX: N17.9 Acute kidney failure, unspecified (principal) | CPT/HCPCS: 99212 ==

== ENCOUNTER 2023-12-16 15:19 | Outpatient (REF) | payer OTHER, SELFPAY ==
[2023-12-16 16:47] LABS: MANUAL DIFF FLAG NO
[2023-12-16 17:30] LABS: Estimated Average Glucose 171 mg/dL; Hemoglobin A1c % 7.6 % (<6.0)
[2023-12-16 17:40] LABS: Basophils Percent Auto 0.3 % (0-2); Eosinophils Absolute Auto 0.2 X10*3/uL (0.0-0.4); Eosinophils Percent Auto 2.7 % (0-4); Hematocrit 46.4 % (42.0-52.0); Hemoglobin 15.1 g/dl (14.0-18.0); Imm Gran Abs Auto 0.03 X10*3/uL (0.00-0.03); Imm Gran Pct Auto 0.4 % (0.0-0.4); Lymphocytes Absolute Auto 2.6 X10*3/uL (1.2-4.9); Lymphocytes Percent Auto 35.5 % (20-40); Mean Corpuscular HGB Conc 32.5 g/dl (31.0-36.0); Mean Corpuscular Hemoglobin 30.4 pg (27.0-33.0); Mean Corpuscular Volume 93.5 fL (80.0-98.0); Mean Platelet Volume 10.3 fL (9.4-12.4); Monocytes Absolute Auto 0.6 X10*3/uL (0.1-1.2); Monocytes Percent Auto 7.8 % (2-11); Neutrophils Percent Auto 53.3 % (45-73); Platelet Count 212 X10*3/uL (160-400); Red Blood Count 4.96 X10*6/uL (4.60-5.80); White Blood Count 7.4 X10*3/uL (4.8-10.8)
[2023-12-16 17:52] LABS: Alanine Aminotransferase 26 U/L (0-40); Albumin Level 4.5 g/dL (3.5-5.0); Alkaline Phosphatase 40 U/L (39-117); Anion Gap 17 (12-20); Aspartate Amino Transferase 26 U/L (5-37); Bilirubin Total 0.4 mg/dL (0.0-1.0); Blood Urea Nitrogen 23 mg/dL (9-16); Calcium 10.1 mg/dL (8.4-10.2); Carbon Dioxide 23 mmol/L (22-29); Chloride 104 mmol/L (96-108); Estimated Glomerular Filt Rate 55; Glucose Random 211 mg/dL (60-115); Lipase 21 U/L (8-78); Potassium 4.4 mmol/L (3.3-5.1); Sodium 140 mmol/L (135-145); Total Protein 8.2 g/dL (6.5-8.0)
[2023-12-16 18:10] LABS: Thyroid Stimulating Hormone 2.18 uIU/mL (0.32-4.0)
[2023-12-16 18:14] LABS: Free T4 (Free Thyroxine) 0.77 ng/dL (0.71-1.85)
[2023-12-16 18:19] LABS: Folate 10.6 ng/mL (> or = 4.0); Prostate Specific Antigen Scr 0.31 ng/mL (<0.05-4.0); Vitamin B12 853 pg/mL (200-900)
[2023-12-18 13:33] LABS: Transglutaminase Ab IgG <1.0 U/mL; Transglutaminase IgA <1.0 U/mL
[2023-12-21 16:03] LABS: Vitamin D 25-OH, D2 <4 ng/mL; Vitamin D 25-OH, D3 40 ng/mL; Vitamin D 25-OH, Total 40 ng/mL (30-100)
== END 2023-12-16 15:20 | disposition home or self-care (01) ==
LOC: HO.LAB 15:19
PROVIDERS: PCP Internal Medicine; Visit Provider Nurse Practitioner Family
DX: Z12.5 Encounter for screening for malignant neoplasm of prostate (principal); R10.9 Unspecified abdominal pain; R10.13 Epigastric pain; E55.9 Vitamin D deficiency, unspecified; E11.65 Type 2 diabetes mellitus with hyperglycemia; Z79.4 Long term (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; K22.4 Dyskinesia of esophagus; K21.9 Gastro-esophageal reflux disease without esophagitis
CPT/HCPCS: 36415; 80053; 82306; 82607; 82746; 83036; 83690; 84153; 84439; 84443; 85025; 86364; 99202

== ENCOUNTER 2023-12-16 15:19 | Outpatient (AMB) | payer OTHER, SELFPAY ==
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
[2023-12-16 15:45] VITALS: BP 117/73; PULSE 100
== END 2023-12-16 16:23 | disposition home or self-care (01) ==
PROVIDERS: PCP Internal Medicine; Visit Provider Nurse Practitioner Family
DX: K22.4 Dyskinesia of esophagus (principal); K21.9 Gastro-esophageal reflux disease without esophagitis; R10.13 Epigastric pain
CPT/HCPCS: 99204

== ENCOUNTER 2023-12-21 14:21 | Outpatient (AMB) | payer OTHER, SELFPAY ==
[2023-12-21 14:22] VITALS: BP 140/86; PULSE 81; O2SAT 96; BMI 36.5
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
== END 2023-12-21 15:19 | disposition home or self-care (01) ==
PROVIDERS: PCP Internal Medicine; Visit Provider Internal Medicine
DX: E11.65 Type 2 diabetes mellitus with hyperglycemia (principal); Z79.4 Long term (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; I82.531 Chronic embolism and thrombosis of right popliteal vein; I26.99 Other pulmonary embolism without acute cor pulmonale; I10 Essential (primary) hypertension; E78.00 Pure hypercholesterolemia, unspecified; E66.9 Obesity, unspecified; K21.9 Gastro-esophageal reflux disease without esophagitis
CPT/HCPCS: 99214

== ENCOUNTER 2023-12-21 16:31 | Outpatient (REF) | payer OTHER, SELFPAY ==
[2023-12-21 17:23] LABS: Creatinine Urine 150.85 mg/dL; Microalbum/Creatinine Ratio Ur 5.9 ug/mg cr (<30)
== END 2023-12-21 16:32 | disposition home or self-care (01) ==
LOC: HO.LNP 16:31
PROVIDERS: Visit Provider Internal Medicine
DX: E11.65 Type 2 diabetes mellitus with hyperglycemia (principal); Z79.4 Long term (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
CPT/HCPCS: 82043; 82570

== ENCOUNTER 2024-01-26 08:30 | Outpatient (AMB) | payer OTHER, SELFPAY ==
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
== END 2024-01-26 09:10 | disposition home or self-care (01) ==
PROVIDERS: PCP Internal Medicine; Visit Provider Registered Nurse Diabetes Educator
DX: E11.69 Type 2 diabetes mellitus with other specified complication (principal); N52.1 Erectile dysfunction due to diseases classified elsewhere

== ENCOUNTER → 2024-01-26 08:30 | Outpatient (BNVA) | payer OTHER, SELFPAY | PROVIDERS: PCP Internal Medicine; Visit Provider Registered Nurse Diabetes Educator | DX: E11.69 Type 2 diabetes mellitus with other specified complication (principal); N52.1 Erectile dysfunction due to diseases classified elsewhere | CPT/HCPCS: 99211 ==

== ENCOUNTER 2024-02-11 08:50 | Outpatient (AMB) | payer OTHER, SELFPAY ==
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
[2024-02-11 08:54] VITALS: BP 130/80; BMI 36.6
[2024-02-11 09:09] LABS: Glucose, Whole Blood 174 mg/dL (60-115)
== END 2024-02-11 09:41 | disposition home or self-care (01) ==
PROVIDERS: PCP Internal Medicine; Visit Provider Nurse Practitioner Adult Health
DX: E11.65 Type 2 diabetes mellitus with hyperglycemia (principal); Z79.4 Long term (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
CPT/HCPCS: 95251; 99214

== ENCOUNTER → 2024-02-11 08:50 | Outpatient (BNVA) | payer OTHER, SELFPAY | PROVIDERS: PCP Internal Medicine; Visit Provider Nurse Practitioner Adult Health | DX: E11.40 Type 2 diabetes mellitus with diabetic neuropathy, unspecified (principal); E11.65 Type 2 diabetes mellitus with hyperglycemia; E78.5 Hyperlipidemia, unspecified; M21.371 Foot drop, right foot; Z79.4 Long term (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; Z79.01 Long term (current) use of anticoagulants | CPT/HCPCS: 82947; 99212 ==

== ENCOUNTER 2024-02-25 09:26 | Outpatient (AMB) | payer OTHER, SELFPAY ==
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
== END 2024-02-25 10:40 | disposition home or self-care (01) ==
PROVIDERS: PCP Internal Medicine; Visit Provider Registered Nurse Diabetes Educator
DX: E11.65 Type 2 diabetes mellitus with hyperglycemia (principal); Z79.4 Long term (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

== ENCOUNTER → 2024-02-25 09:26 | Outpatient (BNVA) | payer OTHER, SELFPAY | PROVIDERS: PCP Internal Medicine; Visit Provider Registered Nurse Diabetes Educator | DX: E11.65 Type 2 diabetes mellitus with hyperglycemia (principal); Z79.4 Long term (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 | CPT/HCPCS: 99211 ==

== ENCOUNTER 2024-03-07 14:35 | Outpatient (AMB) | payer OTHER, SELFPAY ==
[2024-03-07 14:46] VITALS: BP 130/84; PULSE 86; O2SAT 94; BMI 35.9
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
== END 2024-03-07 15:27 | disposition home or self-care (01) ==
PROVIDERS: PCP Internal Medicine; Visit Provider Nurse Practitioner Family
DX: K21.9 Gastro-esophageal reflux disease without esophagitis (principal); K22.4 Dyskinesia of esophagus; R10.13 Epigastric pain
CPT/HCPCS: 99213

== ENCOUNTER → 2024-03-07 14:35 | Outpatient (BNVA) | payer OTHER, SELFPAY | PROVIDERS: PCP Internal Medicine; Visit Provider Nurse Practitioner Family | DX: K21.9 Gastro-esophageal reflux disease without esophagitis (principal); K22.4 Dyskinesia of esophagus; R10.13 Epigastric pain; Z79.899 Other long term (current) drug therapy | CPT/HCPCS: 99212 ==

== ENCOUNTER 2024-03-17 13:41 | Outpatient (AMB) | payer OTHER, SELFPAY ==
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
== END 2024-03-17 14:40 | disposition home or self-care (01) ==
PROVIDERS: PCP Internal Medicine; Visit Provider Nurse Practitioner Family
DX: E11.69 Type 2 diabetes mellitus with other specified complication (principal); N52.1 Erectile dysfunction due to diseases classified elsewhere; R32 Unspecified urinary incontinence; R35.0 Frequency of micturition
CPT/HCPCS: 99213; G2211

== ENCOUNTER → 2024-03-17 13:41 | Outpatient (BNVA) | payer OTHER, SELFPAY | PROVIDERS: PCP Internal Medicine; Visit Provider Nurse Practitioner Family | DX: E11.69 Type 2 diabetes mellitus with other specified complication (principal); N52.1 Erectile dysfunction due to diseases classified elsewhere; R35.0 Frequency of micturition; R32 Unspecified urinary incontinence; Z87.442 Personal history of urinary calculi | CPT/HCPCS: 51798; 81003; 99212 ==

== ENCOUNTER 2024-04-04 11:33 | Emergency (ER) | payer OTHER, SELFPAY ==
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
[2024-04-04 11:59] VITALS: BP 134/89; PULSE 88; RESP 18; TEMP 37.1; O2SAT 100; BMI 33.6
[2024-04-04 13:07] LABS: MANUAL DIFF FLAG NO
[2024-04-04 13:08] LABS: Basophils Percent Auto 0.3 % (0-2); Eosinophils Absolute Auto 0.2 X10*3/uL (0.0-0.4); Eosinophils Percent Auto 2.3 % (0-4); Hematocrit 47.7 % (42.0-52.0); Hemoglobin 15.8 g/dl (14.0-18.0); Imm Gran Abs Auto 0.02 X10*3/uL (0.00-0.03); Imm Gran Pct Auto 0.3 % (0.0-0.4); Lymphocytes Absolute Auto 2.9 X10*3/uL (1.2-4.9); Mean Corpuscular HGB Conc 33.1 g/dl (31.0-36.0); Mean Corpuscular Volume 90.5 fL (80.0-98.0); Mean Platelet Volume 10.6 fL (9.4-12.4); Monocytes Absolute Auto 0.6 X10*3/uL (0.1-1.2); Monocytes Percent Auto 7.1 % (2-11); Neutrophils Absolute Auto 4.3 x10*3/uL (2.0-8.3); Platelet Count 200 X10*3/uL (160-400); Red Blood Count 5.27 X10*6/uL (4.60-5.80); White Blood Count 7.9 X10*3/uL (4.8-10.8)
[2024-04-04 13:22] LABS: Alanine Aminotransferase 35 U/L (0-40); Albumin Level 4.3 g/dL (3.5-5.0); Alkaline Phosphatase 56 U/L (39-117); Anion Gap 10 (12-20); Aspartate Amino Transferase 30 U/L (5-37); Bilirubin Direct 0.1 mg/dL (0.0-0.5); Bilirubin Total 0.5 mg/dL (0.0-1.0); Blood Urea Nitrogen 17 mg/dL (9-16); Calcium 9.2 mg/dL (8.4-10.2); Carbon Dioxide 27 mmol/L (22-29); Chloride 108 mmol/L (96-108); Creatinine Clr Calc Pharmacy 96.3; Estimated Glomerular Filt Rate > 60; Glucose Random 141 mg/dL (60-115); Potassium 4.3 mmol/L (3.3-5.1); Sodium 141 mmol/L (135-145); Total Protein 7.9 g/dL (6.5-8.0)
[2024-04-04 14:27] VITALS: BP 134/89; PULSE 88; RESP 18; TEMP 37.1; O2SAT 100
== END 2024-04-04 14:28 | disposition home or self-care (01) ==
PROVIDERS: Physician Assistant; Emergency Provider Emergency Medicine; PCP Internal Medicine
DX: L03.116 Cellulitis of left lower limb (principal); E11.9 Type 2 diabetes mellitus without complications; I10 Essential (primary) hypertension; E78.5 Hyperlipidemia, unspecified; Z79.4 Long term (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; Z79.84 Long term (current) use of oral hypoglycemic drugs
CPT/HCPCS: 36415; 80048; 80076; 85025; 87040; 99282; 99283

== ENCOUNTER 2024-04-05 07:47 | Outpatient (AMB) | payer OTHER, SELFPAY ==
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
== END 2024-04-05 08:22 | disposition home or self-care (01) ==
LOC: HO.ENCR 07:47
PROVIDERS: PCP Internal Medicine; Visit Provider Registered Nurse Diabetes Educator
DX: E11.69 Type 2 diabetes mellitus with other specified complication (principal); N52.1 Erectile dysfunction due to diseases classified elsewhere

== ENCOUNTER → 2024-04-05 07:47 | Outpatient (BNVA) | payer OTHER, SELFPAY | PROVIDERS: PCP Internal Medicine; Visit Provider Registered Nurse Diabetes Educator | DX: E11.69 Type 2 diabetes mellitus with other specified complication (principal); N52.1 Erectile dysfunction due to diseases classified elsewhere | CPT/HCPCS: 99211 ==

== ENCOUNTER 2024-05-08 14:17 | Emergency (ER) | payer OTHER, SELFPAY ==
--- NOTE | ~2024-05-08 | CT_ITS ---
EXAMINATION: CT ABDOMEN AND PELVIS WITHOUT AND WITH CONTRAST CLINICAL INFORMATION: Abdominal pain. GI bleed. COMPARISON: October 30, 2023 TECHNIQUE: Multidetector volumetric imaging was performed of the abdomen and pelvis before and after the IV administration of 100 mL of Omnipaque 300 intravenous contrast. Sagittal and coronal reformatted images were obtained on the technologist's workstation. This CT examination was performed using dose optimization techniques as appropriate, variously including the following: *Automated exposure control *Adjustment of mA and/or kV according to patient size (this includes techniques or standardized protocols for targeted exams where dose is matched to indication/reason for exam; i.e. extremities or head) *Use of iterative reconstruction technique DLP: 1941 mGy-cm FINDINGS: LUNG BASES: There is minimal scarring or subsegmental atelectasis at the lung bases. LIVER, GALLBLADDER, AND BILIARY TREE: The liver is normal in size, shape, and attenuation. No focal hepatic lesion or biliary ductal dilatation is present. The gallbladder is unremarkable with no evidence of radiopaque gallstones, gallbladder wall thickening, or obvious pericholecystic inflammatory changes. PANCREAS: Unremarkable SPLEEN: Unremarkable ADRENAL GLANDS: There is a stable 1.4 cm left adrenal nodule. KIDNEYS AND URETERS: The kidneys are normal in size, shape, and attenuation. No hydronephrosis, hydroureter, or calculi seen. No perinephric stranding. BLADDER: Unremarkable GASTROINTESTINAL TRACT: There is thickening of the descending colon extending into the rectosigmoid with infiltration along the distal descending/rectosigmoid colon. The appendix is visualized and is within normal limits. There is no contrast extravasation to suggest active GI bleeding. ABDOMINAL WALL: No significant hernia is appreciated. LYMPH NODES: Normal VASCULAR: Unremarkable PELVIC VISCERA: Unremarkable OSSEOUS STRUCTURES: There is posttraumatic and postoperative change of the pelvis to sacrum and left hip. CT/CT gi bleed abd pel wo/w IVcon IMPRESSION: There is thickening of the descending colon extending into the rectosigmoid colon with infiltration along the distal descending/rectosigmoid colon. Findings are consistent with colitis. There is no contrast extravasation to suggest active GI bleeding. Fleischner guidelines were followed. Electronically signed by: Andres Crawford MD 05/08/2024 11:18 PM [facility] [place]
[2024-05-08 14:35] VITALS: BP 171/100; PULSE 100; RESP 20; TEMP 36.4; O2SAT 95; BMI 32.9
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
[2024-05-08 15:26] LABS: Basophils Percent Auto 0.2 % (0-2); Eosinophils Absolute Auto 0.1 X10*3/uL (0.0-0.4); Eosinophils Percent Auto 1.3 % (0-4); Hematocrit 42.1 % (42.0-52.0); Hemoglobin 14.7 g/dl (14.0-18.0); Imm Gran Abs Auto 0.03 X10*3/uL (0.00-0.03); Imm Gran Pct Auto 0.3 % (0.0-0.4); Lymphocytes Absolute Auto 2.4 X10*3/uL (1.2-4.9); MANUAL DIFF FLAG NO; Mean Corpuscular HGB Conc 34.9 g/dl (31.0-36.0); Mean Corpuscular Hemoglobin 30.5 pg (27.0-33.0); Mean Corpuscular Volume 87.3 fL (80.0-98.0); Mean Platelet Volume 10.8 fL (9.4-12.4); Monocytes Absolute Auto 0.6 X10*3/uL (0.1-1.2); Monocytes Percent Auto 6.4 % (2-11); Neutrophils Absolute Auto 6.2 x10*3/uL (2.0-8.3); Neutrophils Percent Auto 65.8 % (45-73); Platelet Count 208 X10*3/uL (160-400); Red Blood Count 4.82 X10*6/uL (4.60-5.80); Red Cell Distribution Width 13.2 % (11.0-16.0); White Blood Count 9.4 X10*3/uL (4.8-10.8)
[2024-05-08 15:38] LABS: INTERNATIONAL NORM RATIO 1.1 (0.9-1.1); Prothrombin Time 12.5 SEC (10.9-12.4)
[2024-05-08 15:40] LABS: Partial Thromboplastin Time 27.9 SEC (26.0-36.8)
[2024-05-08 15:56] LABS: Alanine Aminotransferase 30 U/L (0-40); Albumin Level 3.7 g/dL (3.5-5.0); Alkaline Phosphatase 53 U/L (39-117); Anion Gap 15 (12-20); Aspartate Amino Transferase 22 U/L (5-37); Bilirubin Total 0.4 mg/dL (0.0-1.0); Blood Urea Nitrogen 13 mg/dL (9-16); Calcium 8.9 mg/dL (8.4-10.2); Carbon Dioxide 20 mmol/L (22-29); Chloride 104 mmol/L (96-108); Creatinine Clr Calc Pharmacy 79.7; Estimated Glomerular Filt Rate > 60; Glucose Random 478 mg/dL (60-115); Magnesium 1.7 mg/dL (1.6-2.6); Potassium 3.4 mmol/L (3.3-5.1); Sodium 136 mmol/L (135-145); Total Protein 6.9 g/dL (6.5-8.0)
[2024-05-08 16:25] LABS: Influenza A PCR NEGATIVE (Negative); Influenza B PCR NEGATIVE (Negative); Resp Syncy Virus RNA Qual PCR NEGATIVE (Negative); SARS COV2 PCR INHOUSE NEGATIVE (Negative)
[2024-05-08 18:59] VITALS: BP 164/101; PULSE 94; RESP 14; TEMP 37.2; O2SAT 96
[2024-05-08 19:38] LABS: OBS1 POSITIVE (NEGATIVE)
[2024-05-08 19:39] LABS: OBS Int Ctl Valid YES
[2024-05-08 20:02] LABS: Glucose, Whole Blood 160 mg/dL (60-115)
[2024-05-08 20:45] LABS: Appearance Urine Clear; Color Urine Yellow; Glucose Urine UA >=1000 mg/dL (Negative); Leukocyte Esterase Urine Negative (Negative); Nitrite Urine Negative (Negative); Specific Gravity - Urine >= 1.030 (1.005-1.025); UMIC TRIGGER UACC YES; Urine Blood Negative (Negative); Urine Ketones Trace mg/dL (Negative); Urine Protein Trace mg/dL (Neg-Trace)
[2024-05-08 20:58] LABS: Bacteria Urine None Seen (None Seen); Calcium Oxalate Crystals Urine Present; Hyaline Casts Urine 0-2 /LPF (0-2); RBC Urine 0-2 /HPF (0-2); Squamous Epithelial Cell Urine 0-2 /HPF (0-2); WBC Urine 0-5 /HPF (0-5)
[2024-05-08] MEDS: iohexoL 350 MG/ML 100 ML INFUS..BTL IV (21:07)
[2024-05-08 21:10] VITALS: BP 138/90; PULSE 86; RESP 16; TEMP 36.4; O2SAT 97
[2024-05-09] MEDS: levoFLOXacin 750 MG TABLET PO (00:51)
[2024-05-09] MEDS: metroNIDAZOLE 500 MG TABLET PO (00:51)
[2024-05-09 00:58] VITALS: BP 138/90; PULSE 86; RESP 16; TEMP 36.4; O2SAT 97
== END 2024-05-09 00:59 | disposition home or self-care (01) ==
PROVIDERS: Physician Assistant Medical; Emergency Provider Internal Medicine; PCP Internal Medicine
DX: K52.9 Noninfective gastroenteritis and colitis, unspecified (principal); R11.2 Nausea with vomiting, unspecified; E11.9 Type 2 diabetes mellitus without complications; R10.2 Pelvic and perineal pain; M54.50 Low back pain, unspecified; Z79.4 Long term (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; Z86.718 Personal history of other venous thrombosis and embolism; Z79.01 Long term (current) use of anticoagulants; Z03.818 Encounter for observation for suspected exposure to other biological agents ruled out
CPT/HCPCS: 0241U; 74178; 80053; 81001; 82272; 82947; 83735; 85025; 85610; 85730; 99284; Q9967

== ENCOUNTER 2024-05-10 10:35 | Outpatient (AMB) | payer OTHER, SELFPAY ==
[2024-05-10 11:17] VITALS: BP 142/72; PULSE 90; O2SAT 99; BMI 37.4
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
== END 2024-05-10 12:15 | disposition home or self-care (01) ==
PROVIDERS: PCP Internal Medicine; Visit Provider Nurse Practitioner Family
DX: K21.9 Gastro-esophageal reflux disease without esophagitis (principal); K22.4 Dyskinesia of esophagus; R10.13 Epigastric pain; K52.9 Noninfective gastroenteritis and colitis, unspecified
CPT/HCPCS: 99214

== ENCOUNTER → 2024-05-10 10:35 | Outpatient (BNVA) | payer OTHER, SELFPAY | PROVIDERS: PCP Internal Medicine; Visit Provider Nurse Practitioner Family | DX: K21.9 Gastro-esophageal reflux disease without esophagitis (principal); K22.4 Dyskinesia of esophagus; K52.9 Noninfective gastroenteritis and colitis, unspecified; R10.13 Epigastric pain; Z98.890 Other specified postprocedural states | CPT/HCPCS: 99212 ==

== ENCOUNTER 2024-05-12 13:11 | Outpatient (AMB) | payer OTHER, SELFPAY ==
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
[2024-05-12 13:16] VITALS: BP 136/92; PULSE 79; O2SAT 99; BMI 37.4
== END 2024-05-12 14:07 | disposition home or self-care (01) ==
PROVIDERS: PCP Internal Medicine; Visit Provider Internal Medicine
DX: E11.65 Type 2 diabetes mellitus with hyperglycemia (principal); Z79.4 Long term (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; E66.9 Obesity, unspecified; Z68.37 Body mass index [BMI] 37.0-37.9, adult; I26.99 Other pulmonary embolism without acute cor pulmonale; I10 Essential (primary) hypertension; E78.00 Pure hypercholesterolemia, unspecified; K21.9 Gastro-esophageal reflux disease without esophagitis; N39.46 Mixed incontinence; M21.371 Foot drop, right foot

== ENCOUNTER → 2024-05-12 13:11 | Outpatient (BNVA) | payer OTHER, SELFPAY | PROVIDERS: PCP Internal Medicine; Visit Provider Internal Medicine | DX: E11.65 Type 2 diabetes mellitus with hyperglycemia (principal); Z79.4 Long term (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; E66.9 Obesity, unspecified; I10 Essential (primary) hypertension; E78.00 Pure hypercholesterolemia, unspecified; K21.9 Gastro-esophageal reflux disease without esophagitis; N39.46 Mixed incontinence; I26.99 Other pulmonary embolism without acute cor pulmonale; M21.371 Foot drop, right foot | CPT/HCPCS: 82947; 83036; 99212 ==

== ENCOUNTER 2024-05-12 14:16 | Outpatient (AMB) | payer OTHER, SELFPAY ==
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
[2024-05-12 14:32] VITALS: BP 144/86; PULSE 76; BMI 37.3
[2024-05-12 14:48] LABS: Glucose, Whole Blood 85 mg/dL (60-115)
== END 2024-05-12 14:49 | disposition home or self-care (01) ==
PROVIDERS: PCP Internal Medicine; Visit Provider Internal Medicine
DX: E11.65 Type 2 diabetes mellitus with hyperglycemia (principal); Z79.4 Long term (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

== ENCOUNTER 2024-06-13 09:17 | Outpatient (AMB) | payer OTHER, SELFPAY ==
[2024-06-13 09:20] VITALS: BP 140/94; PULSE 92; O2SAT 100; BMI 36.7
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
== END 2024-06-13 11:12 | disposition home or self-care (01) ==
PROVIDERS: PCP Internal Medicine; Visit Provider Nurse Practitioner Family
DX: K21.9 Gastro-esophageal reflux disease without esophagitis (principal); K22.4 Dyskinesia of esophagus; R10.13 Epigastric pain; K52.9 Noninfective gastroenteritis and colitis, unspecified
CPT/HCPCS: 99214

== ENCOUNTER 2024-06-23 09:54 | Outpatient (AMB) | payer OTHER, SELFPAY ==
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
[2024-06-23 09:56] VITALS: BP 144/90; PULSE 88; BMI 37.6
[2024-06-23 10:04] LABS: Glucose, Whole Blood 178 mg/dL (60-115)
== END 2024-06-23 10:24 | disposition home or self-care (01) ==
PROVIDERS: PCP Internal Medicine; Visit Provider Internal Medicine
DX: E11.3293 Type 2 diabetes mellitus with mild nonproliferative diabetic retinopathy without macular edema, bilateral (principal)

== ENCOUNTER → 2024-06-23 09:54 | Outpatient (BNVA) | payer OTHER, SELFPAY | PROVIDERS: PCP Internal Medicine; Visit Provider Internal Medicine | DX: E11.3293 Type 2 diabetes mellitus with mild nonproliferative diabetic retinopathy without macular edema, bilateral (principal); E78.5 Hyperlipidemia, unspecified; I10 Essential (primary) hypertension | CPT/HCPCS: 82947; 99212 ==

== ENCOUNTER 2024-07-06 08:00 | Outpatient (AMB) | payer OTHER, SELFPAY ==
--- OUTSIDE RECORDS SUMMARY | 2024-07-06 08:05 | XMS_ITS | Clinical Summary ---
Author Organization [facility] it Address [address] [place] [address] Care Team Providers Care Auto Transmission Mechanic Name Role Phone Unavailable Primary Care Provider Unavailabl e Social History Tobacco Use Types Packs/Day Years Used Date Smoking Tobacco: Never Assessed Sex and Gender Information Value Date Recorded Sex Assigned at Not on file Gender Identity Not on file Sexual Orientation Not on file Plan of Treatment Health Maintenance Due Date Last Done Comments DTaP,Tdap,and Td Vaccines (1 - Tdap) 1984 Hepatitis B Vaccines (1 of 3 - 19+ 3-dose series) 1984 Zoster Vaccines (1 of 2) 12/28/2015 COVID-19 Vaccine (2023-2 5 season) 2024 Influenza Vaccine (#1) 2024 HIB Vaccines Aged Out No longer eligi ble based on patient's age to complete this topic HPV Vaccines Aged Out No longer eligi ble based on patient's age to complete this topic Hepatitis A Vaccines Aged Out No long er eligible based on patient's age to complete this topic IPV Vaccines Aged Out No longer eligi ble based on patient's age to complete this topic MMR Vaccines Aged Out No longer eligi ble based on patient's age to complete this topic Meningococcal ACWY Vaccine Aged Out N o longer eligible based on patient's age to complete this topic Pneumococcal Vaccine: Pediat rics (0 to 5 Years) and At-Risk Patients (6 to 64 Years) Aged Out No longer eligible b ased on patient's age to complete this topic RSV Immunization Patients Un jeanne 20 months Aged Out No longer eligible b ased on patient's age to complete this topic Varicella Vaccines Aged Out No longer eligible based on patient's age to complete this topic
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
== END 2024-07-06 08:39 | disposition home or self-care (01) ==
PROVIDERS: PCP Internal Medicine; Visit Provider Registered Nurse Diabetes Educator
DX: E11.3293 Type 2 diabetes mellitus with mild nonproliferative diabetic retinopathy without macular edema, bilateral (principal)

== ENCOUNTER → 2024-07-06 08:00 | Outpatient (BNVA) | payer OTHER, SELFPAY | PROVIDERS: PCP Internal Medicine; Visit Provider Registered Nurse Diabetes Educator | DX: E11.3293 Type 2 diabetes mellitus with mild nonproliferative diabetic retinopathy without macular edema, bilateral (principal) | CPT/HCPCS: 99211 ==

== ENCOUNTER 2024-07-14 06:20 | Day surgery (SDC) | payer OTHER, SELFPAY ==
[2024-07-11 16:03] VITALS: BMI 36.6
[2024-07-12 09:40] VITALS: BMI 34.5
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
--- NOTE | 2024-07-14 06:11 | MHC.SHP ---
Pre-Procedural Eval Section A - 24 Hr Update-Section A only Date of Service: 07/14/24 The patient is an INPATIENT: No The patient has been examined within 24 hours of the surgical procedure. The History & Physical has been completed within 30 days and I have reviewed it.: Yes Section B - Complete if H&P > 30 days Chief Complaint: Dyskinesia of esophagus,aphagia,abnormla imaging Allergies: Allergies Allergy/AdvReac Type Severity Reaction Status Date / Time piperacillin [From Zosyn] Allergy Severe Rash Verified 06/23/24 10:01 shellfish derived Allergy Severe DIFFICULTY Verified 06/23/24 10:01 [SHELLFISH DERIVED] BREATHING tazobactam [From Zosyn] Allergy Severe Rash Verified 06/23/24 10:01 clindamycin [CLINDAMYCIN] Allergy Intermediate HIVES Verified 06/23/24 10:01 Plan Diagnosis/Plan: Unchanged I have reviewed the history and physical and performed a pertinent physical examination on my patient. No changes have occurred unless specified. Time Spent With Patient Time: Total time managing care of this patient today ____ minutes.
--- OUTSIDE RECORDS SUMMARY | 2024-07-14 06:22 | XMS_ITS | Clinical Summary ---
Author Organization [facility] it Address [address] [place] [address] Care Team Providers Care Brand Leader Name Role Phone Unavailable Primary Care Provider [...]
[2024-07-14 06:49] VITALS: BP 145/96; PULSE 86; RESP 20; TEMP 36.3; O2SAT 96
[2024-07-14 07:04] LABS: Glucose, Whole Blood 150 mg/dL (60-115)
[2024-07-14] MEDS: Lactated Ringers 1,000 ML 100 ML IVCONT (07:05)
--- NOTE | 2024-07-14 08:09 | P.OP_ITS ---
Operative Note Operative Note Date of Service: 07/14/24 Narrative: Procedure: Esophagogastroduodenoscopy Endoscopist: Anne-Marie Pérez MD Indication: Dysphagia Anesthesia Provider: Dr Sharee Ortiz Anesthesia Type: MAC ?? EGD Procedure:?? The procedure, indications, preparation and potential complications were reviewed with the patient, who indicated understanding and gave written informed consent to proceed. A physical exam was performed. The endoscope was introduced through the mouth, and advanced to the second part of duodenum. The mucosa was carefully examined on slow withdrawal of the endoscope. The patient tolerated the procedure well. There were no immediate complications.? ? EGD Findings:? * Esophagus:? Small linear erosions measuring < 5 mm noted at the GE junction. The Z line was at 38 cm. Middle and lower esophagus forceps biopsies were obtained to rule out eosinophilic esophagitis. * Stomach:? Normal mucosa was noted in the stomach. Retroflexion was performed in the cardia. Random cold forceps gastric biopsies were taken to rule out H Pylori infection. * Duodenum:? Normal mucosa was noted in the whole of the examined duodenum. There was a 7 mm polyp noted in the second portion of the duodenum just under the major papilla. Cold snare polypectomy was performed. Cold forceps biopsies were taken from duodenal bulb and second portion of the duodenum to rule out celiac sprue. Additional intervention: Soft tip Savary wire was introduced through the biopsy channel of the gastroscope and advanced to the antrum. The gastroscope was then backed out. Savary Ivy bougie was advanced over the guidewire and the esophagus was dilated to 18 mm without any resistance felt. On relook, no heme or tear was noted. ? EGD Impressions:? * Grade A esophagitis (biopsy, dilation) * Normal stomach (biopsy) * Duodenal polyp (polypectomy) * Normal duodenum (biopsy) ?? Recommendations:?? * Follow biopsy results. Our office will call or send a letter with results within 7-10 days. * No obvious narrowing was noted. If pt does not report any improvement in dysphagia with empiric dilation done today, can consider HREM for motility evaluation. * Stop famotidine. Start omeprazole 20 mg once daily. * Resume anticoagulation TOMORROW. * If H pylori +, patient will be prescribed eradication therapy followed by test of cure. * Avoid NSAIDs and smoking. Above has been reviewed with the patient.
[2024-07-14 08:15] VITALS: BP 119/82; PULSE 88; RESP 18; TEMP 36.1; O2SAT 98
[2024-07-14 08:30] VITALS: BP 136/96; PULSE 84; RESP 18; TEMP 36.3; O2SAT 98
== END 2024-07-14 09:19 | disposition home or self-care (01) ==
PROVIDERS: PCP Internal Medicine; Visit Provider Internal Medicine
PROC: 0DJ08ZZ Inspection of Upper Intestinal Tract, Via Natural or Artificial Opening Endoscopic (ICD-10-PCS; CPT 43235; principal; 2024-07-14 07:30)
DX: R13.0 Aphagia (principal); K22.4 Dyskinesia of esophagus; K20.90 Esophagitis, unspecified without bleeding; D13.2 Benign neoplasm of duodenum; I10 Essential (primary) hypertension; E78.00 Pure hypercholesterolemia, unspecified; K52.9 Noninfective gastroenteritis and colitis, unspecified; E11.319 Type 2 diabetes mellitus with unspecified diabetic retinopathy without macular edema; E11.65 Type 2 diabetes mellitus with hyperglycemia; I26.99 Other pulmonary embolism without acute cor pulmonale; G62.9 Polyneuropathy, unspecified; Z87.01 Personal history of pneumonia (recurrent); Z86.718 Personal history of other venous thrombosis and embolism; Z87.81 Personal history of (healed) traumatic fracture; Z91.81 History of falling; Z79.4 Long term (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; Z79.01 Long term (current) use of anticoagulants; Z79.85 Long-term (current) use of injectable non-insulin antidiabetic drugs; Z79.84 Long term (current) use of oral hypoglycemic drugs; Z79.899 Other long term (current) drug therapy; Z88.1 Allergy status to other antibiotic agents; Z98.890 Other specified postprocedural states
CPT/HCPCS: 43251; 43248; 43239; 82947; 88305; 88313; 88342; C1769; J2003; J2704

== ENCOUNTER → 2024-07-14 06:20 | Outpatient (BNV) | CPT/HCPCS: 43239; 43248 ==

== ENCOUNTER 2024-07-27 08:55 | Outpatient (AMB) | payer OTHER, SELFPAY ==
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
--- OUTSIDE RECORDS SUMMARY | 2024-07-27 09:02 | XMS_ITS | Clinical Summary ---
Author Organization [facility] it Address [address] [place] [address] Care Team Providers Care Suspender Maker Name Role Phone Unavailable Primary Care Provider Unavailabl e Social History Tobacco Use Types Packs/Day Years Used Date Smoking Tobacco: Never Assessed Sex and Gender Information Value Date Recorded Sex Assigned at Not on file Legal Sex Male 11:00 AM EST Gender Identity Not on file Sexual Orientation Not on file Plan of Treatment Health Maintenance Due Date Last Done Comments DTaP,Tdap,and Td Vaccines (1 - Tdap) 1984 Hepatitis B Vaccines (1 of 3 - 19+ 3-dose series) 1984 Pneumococcal Vaccine: 50+ Ye ars (1 of 1 - PCV) 12/28/2015 Zoster Vaccines (1 of 2) 12/28/2015 COVID-19 Vaccine ( - 2023-2 5 season) 2024 Influenza Vaccine (#1) 2024 [...] patient's age to complete this topic Meningococcal B Vacine Aged Out No lo nger eligible based on patient's age to complete [...]
[2024-07-27 09:05] VITALS: BP 133/59; PULSE 86; O2SAT 95; BMI 38.5
== END 2024-07-27 09:24 | disposition home or self-care (01) ==
PROVIDERS: PCP Internal Medicine; Visit Provider Nurse Practitioner Family
DX: K20.90 Esophagitis, unspecified without bleeding (principal); K22.4 Dyskinesia of esophagus; K21.9 Gastro-esophageal reflux disease without esophagitis; R10.13 Epigastric pain
CPT/HCPCS: 99214; G2211

== ENCOUNTER → 2024-07-27 08:55 | Outpatient (BNVA) | payer OTHER, SELFPAY | PROVIDERS: PCP Internal Medicine; Visit Provider Nurse Practitioner Family | DX: K20.90 Esophagitis, unspecified without bleeding (principal); K22.4 Dyskinesia of esophagus; K21.9 Gastro-esophageal reflux disease without esophagitis; R10.13 Epigastric pain | CPT/HCPCS: 99212 ==

== ENCOUNTER 2024-08-08 14:12 | Outpatient (REF) | payer OTHER, SELFPAY ==
[2024-08-08 14:31] LABS: MANUAL DIFF FLAG NO
[2024-08-08 14:59] LABS: Basophils Percent Auto 0.4 % (0-2); Eosinophils Absolute Auto 0.3 X10*3/uL (0.0-0.4); Hematocrit 43.5 % (42.0-52.0); Hemoglobin 15.3 g/dl (14.0-18.0); Imm Gran Abs Auto 0.02 X10*3/uL (0.00-0.03); Imm Gran Pct Auto 0.2 % (0.0-0.4); Lymphocytes Absolute Auto 3.3 X10*3/uL (1.2-4.9); Lymphocytes Percent Auto 39.2 % (20-40); Mean Corpuscular HGB Conc 35.2 g/dl (31.0-36.0); Mean Corpuscular Hemoglobin 30.7 pg (27.0-33.0); Mean Corpuscular Volume 87.2 fL (80.0-98.0); Mean Platelet Volume 10.1 fL (9.4-12.4); Monocytes Absolute Auto 0.6 X10*3/uL (0.1-1.2); Monocytes Percent Auto 6.6 % (2-11); Neutrophils Absolute Auto 4.2 x10*3/uL (2.0-8.3); Neutrophils Percent Auto 50.6 % (45-73); Platelet Count 193 X10*3/uL (160-400); Red Blood Count 4.99 X10*6/uL (4.60-5.80); Red Cell Distribution Width 13.1 % (11.0-16.0); White Blood Count 8.4 X10*3/uL (4.8-10.8)
[2024-08-08 15:06] LABS: Estimated Average Glucose 183 mg/dL
[2024-08-08 16:00] LABS: Folate 11.2 ng/mL (> or = 4.0); Vitamin B12 478 pg/mL (200-900)
[2024-08-08 16:04] LABS: Creatinine Urine 208.81 mg/dL
[2024-08-08 16:17] LABS: Alanine Aminotransferase 54 U/L (0-40); Alkaline Phosphatase 52 U/L (39-117); Anion Gap 14 (12-20); Aspartate Amino Transferase 53 U/L (5-37); Bilirubin Total 0.5 mg/dL (0.0-1.0); Calcium 9.5 mg/dL (8.4-10.2); Carbon Dioxide 25 mmol/L (22-29); Chloride 106 mmol/L (96-108); Cholesterol 227 mg/dL (<200); Estimated Glomerular Filt Rate > 60; Glucose Random 177 mg/dL (60-115); HDL Cholesterol 44 mg/dL (>40); LDL Cholesterol Calculated 132 mg/dL (<100); Potassium 3.6 mmol/L (3.3-5.1); Sodium 141 mmol/L (135-145); Total Protein 7.8 g/dL (6.5-8.0); Triglycerides 256 mg/dL (<150)
[2024-08-08 16:24] LABS: Blood Urea Nitrogen 16 mg/dL (9-16)
[2024-08-08 16:28] LABS: Free T4 (Free Thyroxine) 0.91 ng/dL (0.71-1.85); Thyroid Stimulating Hormone 2.48 uIU/mL (0.32-4.0)
--- OUTSIDE RECORDS SUMMARY | 2024-08-08 17:02 | XMS_ITS | Clinical Summary ---
Author Organization [facility] it Address [address] [place] [address] Care Team Providers Care Enterprise Account Manager Name Role Phone Unavailable Primary Care Provider [...]
== END 2024-08-08 14:13 | disposition home or self-care (01) ==
LOC: HO.LAB 14:12
PROVIDERS: PCP Internal Medicine; Visit Provider Internal Medicine
DX: Z00.00 Encounter for general adult medical examination without abnormal findings (principal); E11.65 Type 2 diabetes mellitus with hyperglycemia; E78.00 Pure hypercholesterolemia, unspecified; E66.9 Obesity, unspecified; K21.9 Gastro-esophageal reflux disease without esophagitis; I10 Essential (primary) hypertension; I82.531 Chronic embolism and thrombosis of right popliteal vein; M21.371 Foot drop, right foot; K29.60 Other gastritis without bleeding; I26.99 Other pulmonary embolism without acute cor pulmonale; M25.512 Pain in left shoulder; Z79.4 Long term (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
CPT/HCPCS: 36415; 80053; 80061; 82043; 82570; 82607; 82746; 83036; 84153; 84439; 84443; 85025

== ENCOUNTER 2024-08-08 14:40 | Outpatient (AMB) | payer OTHER, SELFPAY ==
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
[2024-08-08 14:54] VITALS: BP 162/90; PULSE 116; TEMP 36.3; O2SAT 95; BMI 38.5
[2024-08-08 15:50] VITALS: BP 144/70
--- OUTSIDE RECORDS SUMMARY | 2024-08-08 17:29 | XMS_ITS | Clinical Summary ---
Author Organization [facility] it Address [address] [place] [address] Care Team Providers Care It Network Architect Name Role Phone Unavailable Primary Care Provider [...]
== END 2024-08-08 16:22 | disposition home or self-care (01) ==
PROVIDERS: PCP Internal Medicine; Visit Provider Internal Medicine
DX: Z00.00 Encounter for general adult medical examination without abnormal findings (principal); E11.65 Type 2 diabetes mellitus with hyperglycemia; Z79.4 Long term (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; I82.531 Chronic embolism and thrombosis of right popliteal vein; I26.99 Other pulmonary embolism without acute cor pulmonale; E66.9 Obesity, unspecified; K21.9 Gastro-esophageal reflux disease without esophagitis; I10 Essential (primary) hypertension; E78.00 Pure hypercholesterolemia, unspecified; M21.371 Foot drop, right foot; M25.512 Pain in left shoulder; Z23 Encounter for immunization

== ENCOUNTER 2024-08-08 16:28 | Outpatient (REF) | payer OTHER, SELFPAY ==
--- NOTE | ~2024-08-08 | XR_ITS ---
EXAMINATION: XR SHOULDER, LEFT CLINICAL INFORMATION: M25.512 - Pain in left shoulder COMPARISON: None available. TECHNIQUE: AP external rotation, Grashey, scapular Y, and axillary views of the left shoulder. FINDINGS: There is mild loss of left AC joint space with periarticular spurring. The glenohumeral joint spaces preserved. No visible acute fracture or dislocation seen. There is a small loose body or osteophyte along the posterior glenoid and superior lateral to the humeral head. The soft tissues are normal.. XR/XR shoulder LT min 2V IMPRESSION: Mild degenerative changes left AC joint. No acute fracture or dislocation. Small loose bodies or osteophyte adjacent to the posterior glenoid and superior lateral to the humeral head. Electronically signed by: Eddy Stockton MD 08/09/2024 10:48 AM KAILEE
--- OUTSIDE RECORDS SUMMARY | 2024-08-08 18:58 | XMS_ITS | Clinical Summary ---
Author Organization [facility] it Address [address] [place] [address] Care Team Providers Care Departmental Buyer Name Role Phone Unavailable Primary Care Provider [...]
== END 2024-08-08 16:29 | disposition home or self-care (01) ==
LOC: HO.XRAY 16:28
PROVIDERS: PCP Internal Medicine; Visit Provider Internal Medicine
DX: Z00.00 Encounter for general adult medical examination without abnormal findings (principal); Z23 Encounter for immunization; E11.65 Type 2 diabetes mellitus with hyperglycemia; M25.512 Pain in left shoulder; E66.9 Obesity, unspecified; K21.9 Gastro-esophageal reflux disease without esophagitis; I10 Essential (primary) hypertension; E78.00 Pure hypercholesterolemia, unspecified; I82.531 Chronic embolism and thrombosis of right popliteal vein; M21.371 Foot drop, right foot; K29.60 Other gastritis without bleeding; Z86.711 Personal history of pulmonary embolism; Z79.01 Long term (current) use of anticoagulants; Z79.84 Long term (current) use of oral hypoglycemic drugs; Z79.899 Other long term (current) drug therapy; Z12.5 Encounter for screening for malignant neoplasm of prostate
CPT/HCPCS: 36415; 73030; 80053; 80061; 82043; 82570; 82607; 82746; 83036; 84153; 84439; 84443; 85025; 90471; 90715; 96127; 99396

== ENCOUNTER → 2024-08-08 16:32 | Outpatient (BNV) | payer OTHER, SELFPAY | PROVIDERS: PCP Internal Medicine; Visit Provider Radiology Diagnostic Radiology | DX: M25.512 Pain in left shoulder (principal); M19.012 Primary osteoarthritis, left shoulder | CPT/HCPCS: 73030 ==

== ENCOUNTER 2024-08-25 11:42 | Outpatient (AMB) | payer OTHER, SELFPAY ==
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
[2024-08-25 11:51] VITALS: BP 142/78; PULSE 83; O2SAT 98; BMI 39.5
== END 2024-08-25 12:43 | disposition home or self-care (01) ==
LOC: HO.HMCH 11:43
PROVIDERS: PCP Internal Medicine; Visit Provider Internal Medicine
DX: E11.65 Type 2 diabetes mellitus with hyperglycemia (principal); Z79.4 Long term (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; I26.99 Other pulmonary embolism without acute cor pulmonale; Z68.39 Body mass index [BMI] 39.0-39.9, adult; E66.9 Obesity, unspecified; K21.9 Gastro-esophageal reflux disease without esophagitis; I10 Essential (primary) hypertension; E78.00 Pure hypercholesterolemia, unspecified; M21.371 Foot drop, right foot; G62.9 Polyneuropathy, unspecified

== ENCOUNTER → 2024-08-25 11:42 | Outpatient (BNVA) | payer OTHER, SELFPAY | PROVIDERS: PCP Internal Medicine; Visit Provider Internal Medicine | DX: E11.65 Type 2 diabetes mellitus with hyperglycemia (principal); Z79.4 Long term (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; E66.9 Obesity, unspecified; K21.9 Gastro-esophageal reflux disease without esophagitis; I10 Essential (primary) hypertension; E78.00 Pure hypercholesterolemia, unspecified; M21.371 Foot drop, right foot; I26.99 Other pulmonary embolism without acute cor pulmonale; G62.9 Polyneuropathy, unspecified | CPT/HCPCS: 96127; 99212 ==

== ENCOUNTER 2024-09-14 09:55 | Outpatient (AMB) | payer OTHER, SELFPAY ==
[2024-09-14 09:56] VITALS: BP 130/90; PULSE 76; O2SAT 97; BMI 38.3
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
[2024-09-14 10:07] LABS: Glucose, Whole Blood 320 mg/dL (60-115)
--- OUTSIDE RECORDS SUMMARY | 2024-09-14 11:01 | XMS_ITS | Clinical Summary ---
Author Organization [facility] it Address [address] [place] [address] Care Team Providers Care Club Car Attendant Name Role Phone Unavailable Primary Care Provider [...] - 2023-2 5 season) 2024 Influenza Vaccine (Season Ended) 2025 HIB Vaccines Aged Out No longer eligi [...] age to complete this topic Meningococcal B Vaccine Aged Out No l onger eligible based on patient's age to complete [...]
== END 2024-09-14 10:31 | disposition home or self-care (01) ==
LOC: HO.ENCR 09:56
PROVIDERS: PCP Internal Medicine; Visit Provider Internal Medicine
DX: E11.65 Type 2 diabetes mellitus with hyperglycemia (principal); Z79.4 Long term (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

== ENCOUNTER → 2024-09-14 09:55 | Outpatient (BNVA) | payer OTHER, SELFPAY | PROVIDERS: PCP Internal Medicine; Visit Provider Internal Medicine | DX: R35.0 Frequency of micturition (principal); N39.46 Mixed incontinence; E11.65 Type 2 diabetes mellitus with hyperglycemia; Z79.4 Long term (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 | CPT/HCPCS: 51798; 81003; 82947; 99212 ==

== ENCOUNTER 2024-09-14 11:26 | Outpatient (AMB) | payer OTHER, SELFPAY ==
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
--- OUTSIDE RECORDS SUMMARY | 2024-09-14 13:33 | XMS_ITS | Clinical Summary ---
Author Organization [facility] it Address [address] [place] [address] Care Team Providers Care Circulation Manager Name Role Phone Unavailable Primary Care [...]
== END 2024-09-14 11:59 | disposition home or self-care (01) ==
LOC: HO.HUSH 11:27
PROVIDERS: PCP Internal Medicine; Visit Provider Nurse Practitioner Family
DX: R35.0 Frequency of micturition (principal); N39.46 Mixed incontinence
CPT/HCPCS: 99213; G2211

== ENCOUNTER 2024-10-17 13:24 | Outpatient (AMB) | payer OTHER, SELFPAY ==
[2024-10-17 13:34] VITALS: BMI 38.2
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
--- OUTSIDE RECORDS SUMMARY | 2024-10-17 13:46 | XMS_ITS | Patient Health Record ---
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 No Tobacco Control (Standard) Question Answer Notes Tobacco use: Nonsmoker AUDIT-C (Standard) Question Answer Notes Did you have a drink contain ing alcohol in the past year? Yes How often did you have a dri nk containing alcohol in the past year? Never (0 point) How many drinks did you have on a typical day when you were drinking in the past year? 1 or 2 drinks (0 point) How often did you have six o r more drinks on one occasion in the past year? Never (0 point) Points 0 Interpretation Negative Encounters Encounter Location Date Provider Diagnosis [facility] [address] [place] [address] 09/30/2024 Christine Pimentel Plan Of Treatment Next Appt Details Provider Name:Christine rizo, 11/22/2024 08:30:00 AM, [address] [place] [address], [place], [address], Insurance Providers Payer Name Payer Address Payer Phone Subscriber Number Group Number Insured Name Patient Relationship to Insured Coverage Start Date Coverage End Date [facility] [employer] Claims [address] [place] [phone] [id number] Sam Fernández Self - patient is the insured
--- OUTSIDE RECORDS SUMMARY | 2024-10-17 13:46 | XMS_ITS ---
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 Generated for Printi ng/Faxing/eTransmitting on:?10/17/2024 01:45 PM EDT
== END 2024-10-17 14:15 | disposition home or self-care (01) ==
LOC: HO.HOS 13:25
PROVIDERS: PCP Internal Medicine; Visit Provider Physician Assistant
DX: M77.8 Other enthesopathies, not elsewhere classified (principal); W00.9XXA Unspecified fall due to ice and snow, initial encounter
CPT/HCPCS: 99213; G2211

== ENCOUNTER → 2024-10-17 13:24 | Outpatient (BNVA) | payer OTHER, SELFPAY | PROVIDERS: PCP Internal Medicine; Visit Provider Physician Assistant | DX: M77.8 Other enthesopathies, not elsewhere classified (principal) | CPT/HCPCS: 99212 ==

== ENCOUNTER 2024-11-22 09:22 | Outpatient (REF) | payer OTHER, SELFPAY ==
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
[2024-11-22 10:26] LABS: Estimated Average Glucose 212 mg/dL; Total Hemoglobin (HGBA1C) 3867.8851 umol/L
[2024-11-22 10:35] LABS: Alanine Aminotransferase 46 U/L (0-40); Albumin Level 4.1 g/dL (3.5-5.0); Alkaline Phosphatase 52 U/L (39-117); Anion Gap 10 (12-20); Aspartate Amino Transferase 41 U/L (5-37); Bilirubin Total 0.5 mg/dL (0.0-1.0); Blood Urea Nitrogen 15 mg/dL (9-16); Calcium 9.1 mg/dL (8.4-10.2); Carbon Dioxide 28 mmol/L (22-29); Chloride 106 mmol/L (96-108); Cholesterol 240 mg/dL (<200); Estimated Glomerular Filt Rate > 60; Glucose Random 200 mg/dL (60-115); HDL Cholesterol 42 mg/dL (>40); LDL Cholesterol Calculated 161 mg/dL (<100); Potassium 4.7 mmol/L (3.3-5.1); Sodium 139 mmol/L (135-145); Total Protein 7.3 g/dL (6.5-8.0); Triglycerides 185 mg/dL (<150)
[2024-11-22 11:11] LABS: Creatinine Urine 156.83 mg/dL
== END 2024-11-22 09:23 | disposition home or self-care (01) ==
LOC: HO.LAB 09:22
PROVIDERS: PCP Internal Medicine; Visit Provider Internal Medicine
DX: E11.65 Type 2 diabetes mellitus with hyperglycemia (principal); Z79.4 Long term (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; E78.00 Pure hypercholesterolemia, unspecified
CPT/HCPCS: 36415; 80053; 80061; 82570; 83036

== ENCOUNTER 2024-12-05 11:17 | Outpatient (AMB) | payer OTHER, SELFPAY ==
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
[2024-12-05 11:25] VITALS: BP 140/70; PULSE 86; TEMP 36.3; O2SAT 95; BMI 38.6
[2024-12-05 11:56] VITALS: BP 120/80
--- OUTSIDE RECORDS SUMMARY | 2024-12-05 12:10 | XMS_ITS | Clinical Summary ---
Author Organization [facility] it Address [address] [place] [address] Care Team Providers Care Grinding Wheel Operator Name Role Phone Unavailable Primary Care Provider [...]
== END 2024-12-05 12:14 | disposition home or self-care (01) ==
LOC: HO.HMCH 11:18
PROVIDERS: PCP Internal Medicine
DX: E11.65 Type 2 diabetes mellitus with hyperglycemia (principal); Z79.4 Long term (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; E66.9 Obesity, unspecified; Z68.38 Body mass index [BMI] 38.0-38.9, adult; I10 Essential (primary) hypertension; E78.00 Pure hypercholesterolemia, unspecified

== ENCOUNTER → 2024-12-05 11:17 | Outpatient (BNVA) | payer OTHER, SELFPAY | PROVIDERS: PCP Internal Medicine | DX: E11.51 Type 2 diabetes mellitus with diabetic peripheral angiopathy without gangrene (principal); E11.319 Type 2 diabetes mellitus with unspecified diabetic retinopathy without macular edema; E11.65 Type 2 diabetes mellitus with hyperglycemia; E66.9 Obesity, unspecified; I10 Essential (primary) hypertension; E78.00 Pure hypercholesterolemia, unspecified; K21.9 Gastro-esophageal reflux disease without esophagitis; Z86.718 Personal history of other venous thrombosis and embolism; Z79.4 Long term (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 | CPT/HCPCS: 96127; 99212 ==

== ENCOUNTER 2024-12-12 10:00 | Outpatient (AMB) | payer OTHER, SELFPAY ==
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
[2024-12-12 10:05] VITALS: BMI 38.0
[2024-12-12 10:13] LABS: Glucose, Whole Blood 158 mg/dL (60-115)
--- OUTSIDE RECORDS SUMMARY | 2024-12-12 10:40 | XMS_ITS | Patient Health Record ---
[facility] Address [address] [place] [address] Care Team Providers Care Inventory Worker Name Role Phone Yonatan Keyaaugustine Primary Care Provider Christine Nieves Unavailable [phone] Allergies Allergen (clinical drug ingredient) Drug/Non Drug Allergy documented on EMR Reaction Allergy Type Onset Date Status piperacillin / tazobactam Zosyn rash Drug Allergy Active clindamycin Clindamycin rash Drug Allergy Act oneil Results Component Value Reference Range Notes HEMOGLOBIN A1C (GLYCOHEMOGLO BIN) Reviewed date:11/22/2024 08:40:35 AM Interpretation: Performing Lab: Notes/Report: HEMOGLOBIN A1C % (HH) 8 Reason For Referral No Information Medications Medication SIG (Take, Route, Frequency, Duration) [...] Problem Acquired hammer toe of right foot (8050181764324346 ) Other hammer toe(s) (acquired), right foot (M20.41) Active confirmed Problem Acquired hammer toe of left foot (3113138401613060 ) Other hammer toe(s) (acquired), left foot (M20.42) Active confirmed Problem Polyneuropathy due to type 2 diabetes mellitus (010576432) Type 2 diabetes mellitus with diabetic polyneuropathy (E11.42) Active confirmed Vital Signs Height 5ft 7in in 11/22/2024 Weight 240 lbs 11/22/2024 BMI 37.59 kg/m2 11/22/2024 Procedures Procedure Date Ordered Date Performed Result Body Sit e 57419-TXPHETN NAIL, 6 OR MORE 11/22/2024 N/A 57201-ORXA SKIN LESIONS, 2 TO 4 11/22/2024 N/A Encounters Encounter Location Date Provider Diagnosis [facility] [address] 11/22/2024 Christine Pimentel Other hammer toe(s) (acquired), right foot M20.41 ; Other hammer toe(s) (acquired), left foot M20.42 ; Type 2 diabetes mellitus with diabetic polyneuropathy E11.42 and Tinea unguium B35.1 [facility] [address] [place] [address] 09/30/2024 Christine Pimentel Assessments Encounter Date Diagnosis (ICD Code) Assessment [...] unguium (ICD-10 - B35.1) Plan Of Treatment Pending Test Test Name Order Date 45675-[id number] NAIL, 6 OR MORE 11/22/2024 95477-QYIF SKIN LESIONS, 2 TO 4 11/23/19 25 Next Appt Details Provider Name:Christine rizo, 02/21/2025 09:00:00 AM, [address] [facility], [facility] [address], [place], [address], Insurance Providers Payer Name Payer Address Payer Phone Subscriber Number Group Number Insured Name Patient Relationship to Insured Coverage Start Date Coverage End Date [facility] [employer] Claims [address] [place] [id number] Sam Honeycutt Self - patient is the insured Medical (General) History Medical History History ICD Code Arthritis Back,Hip,and Knee pain Broken bones CAD (Cholesterol) covid-19 type II diabetes High Blood Pressure Numbness Poor circulation Reflux ( GERD) Vascular phlebitis (clots) Chicken pox Joint implants/screws Bone implants/screws Surgical History Surgery Date(Month/Year) femur 03/2013 tib fib 03/2013 pelvis 03/2013 internal bleeding 03/2013
--- OUTSIDE RECORDS SUMMARY | 2024-12-12 10:40 | XMS_ITS | Clinical Summary ---
Author Organization [facility] [address] it Address [address] [place] [address] Care Team Providers Care Skinner Pelts Name Role Phone Unavailable Primary Care Provider [...] Vaccines (1 of 2) 12/28/2015 COVID-19 Vaccine (1 - 2023-2 5 season) 2024 Influenza Vaccine (#1) 2025 HIB Vaccines Aged Out No longer [...]
== END 2024-12-12 10:31 | disposition home or self-care (01) ==
LOC: HO.ENCR 10:01
PROVIDERS: PCP Internal Medicine; Visit Provider Physician Assistant
DX: E11.65 Type 2 diabetes mellitus with hyperglycemia (principal); Z79.4 Long term (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; I10 Essential (primary) hypertension; E78.00 Pure hypercholesterolemia, unspecified; Z91.148 Patient's other noncompliance with medication regimen for other reason

== ENCOUNTER → 2024-12-12 10:00 | Outpatient (BNVA) | payer OTHER, SELFPAY | PROVIDERS: PCP Internal Medicine; Visit Provider Physician Assistant | DX: E11.65 Type 2 diabetes mellitus with hyperglycemia (principal); E11.40 Type 2 diabetes mellitus with diabetic neuropathy, unspecified; I10 Essential (primary) hypertension; E78.00 Pure hypercholesterolemia, unspecified; Z91.148 Patient's other noncompliance with medication regimen for other reason; Z86.718 Personal history of other venous thrombosis and embolism; Z79.4 Long term (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; Z79.01 Long term (current) use of anticoagulants | CPT/HCPCS: 82947; 99212 ==

== ENCOUNTER 2024-12-14 09:55 | Outpatient (AMB) | payer OTHER, SELFPAY ==
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
[2024-12-14 09:59] VITALS: BP 132/76; PULSE 82; BMI 38.7
--- OUTSIDE RECORDS SUMMARY | 2024-12-14 10:30 | XMS_ITS | Patient Health Record ---
[facility] Address [address] [place] [address] Care Team Providers Care High School Professional Name Role Phone Yonatan Keyaaugustine Primary Care Provider Christine Nieves Unavailable [phone] Allergies Allergen (clinical drug ingredient) Drug/Non Drug [...] Problem Acquired hammer toe of right foot (425803243986 9105) Other hammer toe(s) (acquired), right foot (M20.41) Active confirmed Problem Acquired hammer toe of left foot (629297231997 9103) Other hammer toe(s) (acquired), left foot (M20.42) Active confirmed Problem Type 2 diabetes mellitus with diabetic polyneuropathy (E11.42) Active confirmed Vital Signs Height 5ft 7in in 11/22/2024 Weight 240 lbs 11/22/2024 BMI 37.59 kg/m2 11/22/2024 Procedures Procedure Date Ordered Date Performed Result Body Sit e 49489-HKTS SKIN LESIONS, 2 TO 4 11/22/2024 N/A 80237-NITHFHK NAIL, 6 OR MORE 11/22/2024 N/A Encounters Encounter [facility] Date [facility] [address] 11/22/2024 Christine Pimentel Other hammer toe(s) (acquired), right foot M20.41 ; Other hammer toe(s) (acquired), left foot M20.42 ; Type 2 diabetes mellitus with diabetic polyneuropathy E11.42 and Tinea unguium B35.1 [facility] [address] [place] [address] 09/30/2024 Christine Pimentel Assessments Encounter Date Diagnosis [...] Treatment Pending Test Test Name Order Date [id number] NAIL, 6 OR MORE 11/22/2024 54496-KJXJ SKIN LESIONS, 2 TO 4 11/23/19 Next Appt Details Provider Name:Christine rizo, 02/21/2025 09:00:00 AM, [address], [place], [address], Insurance Providers Payer Name Payer Address Payer Phone Subscriber Number Group Number Insured Name Patient Relationship to Insured Coverage Start Date Coverage End Date [facility] [employer] Claims [address] [place] [address] [phone] [id number] Sam Honeycutt Self - patient is the [...]
--- OUTSIDE RECORDS SUMMARY | 2024-12-14 10:30 | XMS_ITS | Clinical Summary ---
Author Organization [facility] Address [address] [place] [address] Care Team Providers Care Ruling Technician Name Role Phone Unavailable Primary Care Provider [...]
== END 2024-12-14 10:12 | disposition home or self-care (01) ==
LOC: HO.HGI 09:55
PROVIDERS: PCP Internal Medicine; Visit Provider Nurse Practitioner Family
DX: K21.9 Gastro-esophageal reflux disease without esophagitis (principal); K22.4 Dyskinesia of esophagus; K64.9 Unspecified hemorrhoids; D12.6 Benign neoplasm of colon, unspecified
CPT/HCPCS: 99213

== ENCOUNTER → 2024-12-14 09:55 | Outpatient (BNVA) | payer OTHER, SELFPAY | PROVIDERS: PCP Internal Medicine; Visit Provider Nurse Practitioner Family | DX: K21.9 Gastro-esophageal reflux disease without esophagitis (principal); K22.4 Dyskinesia of esophagus; K64.9 Unspecified hemorrhoids; D12.6 Benign neoplasm of colon, unspecified; K20.90 Esophagitis, unspecified without bleeding | CPT/HCPCS: 99212 ==

== ENCOUNTER 2025-03-06 09:01 | Outpatient (REF) | payer OTHER, SELFPAY ==
--- OUTSIDE RECORDS SUMMARY | 2025-03-06 09:38 | XMS_ITS | Clinical Summary ---
Author Organization [facility] Address [address] [place] [address] Care Team Providers Care Mysql Dba Name Role Phone Unavailable Primary Care Provider [...] 12/28/2015 Zoster Vaccines (1 of 2) 12/28/2015 Depression Screening 06/08/2024 COVID-19 Vaccine (1 - 2023-2 5 season) 2025 Influenza Vaccine (#1) 2025 RSV Immunization Adult Patie nts (1 - 1-dose 75+ series) 2040 HIB Vaccines Aged Out No longer eligi [...]
--- OUTSIDE RECORDS SUMMARY | 2025-03-06 09:38 | XMS_ITS | Patient Health Record ---
[facility] Address [address] [place] [address] Care Team Providers Care Pharmacist Manager Name Role Phone YonatanHerlinda Primary Care Provider Christine Nieves Unavailable [phone] Allergies Allergen (clinical drug ingredient) Drug/Non Drug Allergy documented on EMR Reaction Allergy Type Onset Date Status piperacillin / tazobactam Zosyn rash Drug Allergy Active clindamycin Clindamycin rash Drug Allergy Act oneil Results Component Value Reference Range Notes HEMOGLOBIN A1C (GLYCOHEMOGLO BIN) Reviewed date:11/22/2024 08:40:35 AM Interpretation: Performing Lab: Notes/Report: HEMOGLOBIN A1C % (HH) 8 HEMOGLOBIN A1C (GLYCOHEMOGLO BIN) Reviewed date:02/21/2025 08:42:48 AM Interpretation: Performing Lab: Notes/Report: HEMOGLOBIN A1C % (HH) 8.2 Reason For Referral No Information Medications Medication SIG (Take, Route, Frequency, Duration) Notes Start Date End Date Status Fiasp Active Tresiba Active Trulicity Active Social History Tobacco Use: Social History [...] Problem Acquired hammer toe of right foot (8657994811602100 ) Other hammer toe(s) (acquired), right foot (M20.41) Active confirmed Problem Acquired hammer toe of left foot (7902995160720440 ) Other hammer toe(s) (acquired), left foot (M20.42) Active confirmed Problem Polyneuropathy due to type 2 diabetes mellitus (434408510) Type 2 diabetes mellitus with diabetic polyneuropathy (E11.42) Active confirmed Vital Signs Height 5ft 7in in 02/21/2025 Weight 240 lbs 02/21/2025 BMI 37.59 kg/m2 02/21/2025 Procedures Procedure Date Ordered Date Performed Result Body Sit e 93340-YEEFDRO NAIL, 6 OR MORE 11/22/2024 N/A 81028-PZJV SKIN LESIONS, 2 TO 4 11/22/2024 N/A Encounters Encounter Location Date Provider Diagnosis [address] [address] 11/22/2024 Christine Pimentel Other hammer toe(s) (acquired), right foot M20.41 ; Other hammer toe(s) (acquired), left foot M20.42 ; Type 2 diabetes mellitus with diabetic polyneuropathy E11.42 and Tinea unguium B35.[address] [address] 02/21/2025 Christine Pimentel Type 2 diabetes mellitus with diabetic polyneuropathy E11.42 and Tinea unguium B35.[address] [address] 09/30/2024 Christine Pimentel [address] [address] 11/22/2024 Christine Pimentel Assessments Encounter Date Diagnosis (ICD Code) Assessment Notes Treatment Notes Treatment Clinical Notes Section Notes 11/22/2024 Other hammer toe(s) (acquired), right foot (ICD-10 - M20.41) Patient Educated with: DIABETIC FOOT CARE INSTRUCTIONS. pdf (DIABETIC FOOT CARE INSTRUCTIONS. pdf) 11/22/2024 Other hammer toe(s) (acquired), left foot (ICD-10 - M20.42) 02/21/2025 Type 2 diabetes mellitus with diabetic polyneuropathy (ICD-10 - E11.42) 02/21/2025 Tinea unguium (ICD-10 - B35.1) 11/22/2024 Type 2 diabetes mellitus with diabetic polyneuropathy (ICD-10 - E11.42) 11/22/2024 Tinea unguium (ICD-10 - B35.1) Plan Of Treatment Pending Test Test Name Order Date [id number] NAIL, 6 OR MORE 11/22/2024 58817-JTZY SKIN LESIONS, 2 TO 4 11/23/19 25 Next Appt Details Provider Name:Christine Queen sallie, 05/23/2025 08:30:00 AM, [address] [facility], [facility] [address], [place], [address], Insurance Providers Payer Name Payer Address Payer Phone Subscriber Number Group Number Insured Name Patient Relationship to Insured Coverage Start Date Coverage End Date [facility] [employer] Claims [address] [facility] [place] [id number] Sam Honeycutt Self - patient is the [...]
[2025-03-06 10:58] LABS: Cholesterol 212 mg/dL (<200); HDL Cholesterol 39 mg/dL (>40); Triglycerides 134 mg/dL (<150)
== END 2025-03-06 09:02 | disposition home or self-care (01) ==
LOC: HO.LAB 09:01
PROVIDERS: PCP Internal Medicine
DX: E11.65 Type 2 diabetes mellitus with hyperglycemia (principal); E78.00 Pure hypercholesterolemia, unspecified; E66.9 Obesity, unspecified; I10 Essential (primary) hypertension; M25.572 Pain in left ankle and joints of left foot; Z79.01 Long term (current) use of anticoagulants; Z79.4 Long term (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; Z79.84 Long term (current) use of oral hypoglycemic drugs; Z79.899 Other long term (current) drug therapy; Z68.39 Body mass index [BMI] 39.0-39.9, adult
CPT/HCPCS: 36415; 80061; 83036; 99212

== ENCOUNTER 2025-03-06 11:01 | Outpatient (AMB) | payer OTHER, SELFPAY ==
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
[2025-03-06 11:09] VITALS: BP 128/80; PULSE 82; TEMP 36.3; O2SAT 96; BMI 39.8
== END 2025-03-06 11:57 | disposition home or self-care (01) ==
LOC: HO.HMCH 11:01
PROVIDERS: PCP Internal Medicine
DX: E11.65 Type 2 diabetes mellitus with hyperglycemia (principal); Z79.4 Long term (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; Z68.39 Body mass index [BMI] 39.0-39.9, adult; E66.9 Obesity, unspecified; I10 Essential (primary) hypertension; E78.00 Pure hypercholesterolemia, unspecified; M25.572 Pain in left ankle and joints of left foot

== ENCOUNTER 2025-03-08 09:28 | Outpatient (AMB) | payer OTHER, SELFPAY ==
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
[2025-03-08 09:38] VITALS: BP 150/90; PULSE 91; O2SAT 98; BMI 39.7
[2025-03-08 10:01] LABS: Glucose, Whole Blood 79 mg/dL (60-115)
[2025-03-08 10:01] LABS: Glucose, Whole Blood 66 mg/dL (60-115)
--- OUTSIDE RECORDS SUMMARY | 2025-03-08 10:21 | XMS_ITS | Clinical Summary ---
Author Organization [facility] ity Address [address] [place] [address] Care Team Providers Care Dehorner Name Role Phone Unavailable Primary Care Provider [...]
--- OUTSIDE RECORDS SUMMARY | 2025-03-08 10:21 | XMS_ITS | Patient Health Record ---
[facility] Address [address] [place] [address] Care Team Providers Care Mill Recorder Name Role Phone YonatanHerlinda Primary Care Provider Christine Nieves Unavailable [phone] Allergies Allergen (clinical drug ingredient) Drug/Non Drug [...] Problem Acquired hammer toe of right foot ([id number] ) Other hammer toe(s) (acquired), right foot (M20.41) Active confirmed Problem Acquired hammer toe of left foot ([id number] ) Other hammer toe(s) (acquired), left foot (M20.42) Active confirmed Problem Polyneuropathy due to type 2 diabetes mellitus (784200608) Type 2 diabetes mellitus with diabetic polyneuropathy (E11.42) Active confirmed Vital Signs Height 5ft 7in in 02/21/2025 Weight 240 lbs 02/21/2025 BMI 37.59 kg/m2 02/21/2025 Procedures Procedure Date Ordered Date Performed Result Body Sit e 32581-RJQOREU NAIL, 6 OR MORE 11/22/2024 N/A 19614-FAAH SKIN LESIONS, 2 TO 4 11/22/2024 N/A Encounters Encounter Location Date Provider Diagnosis [address] [address] 11/22/2024 Christine Pimentel Other hammer toe(s) (acquired), right foot M20.41 ; Other hammer toe(s) (acquired), left foot M20.42 ; Type 2 diabetes mellitus with diabetic polyneuropathy E11.42 and Tinea unguium B35.[address] [address] 02/21/2025 Christine Pimentel Type 2 diabetes mellitus with diabetic polyneuropathy E11.42 and Tinea unguium B35.[address] [address] 09/30/2024 Christine Pimentel [address] [address] 11/22/2024 Christine Pimentel Assessments Encounter Date Diagnosis [...] Treatment Pending Test Test Name Order Date [id number] NAIL, 6 OR MORE 11/22/2024 37856-ZOIL SKIN LESIONS, 2 TO 4 11/23/19 25 Next Appt Details Provider Name:Christine Queen sallie, 05/23/2025 08:30:00 AM, [address] [facility], [facility] [address], [place], [address], Insurance Providers Payer Name Payer Address Payer Phone Subscriber Number Group Number Insured Name Patient Relationship to Insured Coverage Start Date Coverage End Date [facility] [employer] Claims [address] [facility] KIRSTIN Weaver [id number] Sam Honeycutt Self - patient is the [...]
== END 2025-03-08 10:03 | disposition home or self-care (01) ==
LOC: HO.ENCR 09:29
PROVIDERS: PCP Internal Medicine; Visit Provider Internal Medicine
DX: E11.65 Type 2 diabetes mellitus with hyperglycemia (principal); Z79.4 Long term (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

== ENCOUNTER → 2025-03-08 09:28 | Outpatient (BNVA) | payer OTHER, SELFPAY | PROVIDERS: PCP Internal Medicine; Visit Provider Internal Medicine | DX: E11.65 Type 2 diabetes mellitus with hyperglycemia (principal); E11.319 Type 2 diabetes mellitus with unspecified diabetic retinopathy without macular edema; Z79.4 Long term (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 | CPT/HCPCS: 82947; 99212 ==

== ENCOUNTER 2025-03-16 10:38 | Outpatient (AMB) | payer OTHER, SELFPAY ==
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
== END 2025-03-16 11:27 | disposition home or self-care (01) ==
LOC: HO.HUSH 10:39
PROVIDERS: PCP Internal Medicine; Visit Provider Nurse Practitioner Family
DX: E11.65 Type 2 diabetes mellitus with hyperglycemia (principal); Z79.4 Long term (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; R35.0 Frequency of micturition; N39.46 Mixed incontinence; E11.69 Type 2 diabetes mellitus with other specified complication; N52.1 Erectile dysfunction due to diseases classified elsewhere
CPT/HCPCS: 99213; G2211

== ENCOUNTER → 2025-03-16 10:38 | Outpatient (BNVA) | payer OTHER, SELFPAY | PROVIDERS: PCP Internal Medicine; Visit Provider Nurse Practitioner Family | DX: E11.65 Type 2 diabetes mellitus with hyperglycemia (principal); E11.69 Type 2 diabetes mellitus with other specified complication; N52.1 Erectile dysfunction due to diseases classified elsewhere; N39.46 Mixed incontinence; R35.0 Frequency of micturition; Z79.4 Long term (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 | CPT/HCPCS: 51798; 99212 ==

== ENCOUNTER 2025-05-25 10:07 | Outpatient (AMB) | payer OTHER, SELFPAY ==
--- OUTSIDE RECORDS SUMMARY | 2025-05-23 03:30 | XMS_ITS ---
Author Organization [facility] Address [address] [place] [address] Care Team Providers Care Concrete Block Layer Name Role Phone Herlinda Tam Primary Care Provider Christine Nieves [phone] Encounters Encounter Location Date Provider Diagnosis [facility] [address] [place] [phone] 05/23/2025 Christine Pimentel Plan Of Treatment No Information Progress Notes * SHIRAXAVI Sam MooneyDOB: [birth year] (59 yo M)Acc No.[id number]:05/23/2025 Progress Note Patient: Sam TALBOT Provider: Barb Pimentel DPM :1965 A ge:59 Y S ex:Male Date:05/23/2025 Address:[address] [place], [place] [phone] Pcp:Herlinda Tam Subjective: * Chief Complaints: * * Medical History: Objective: * Vitals: Assessment: Plan: * Treatment: * Images: * The named appointment provid er may or may not be the originator of this progress note, and it is not deemed complete until electronically signed by the appointment provider. Sign off status: Pending * Provider: Barb Pimentel DPM Date: 07/24/2024 Generated for Printi ng/Faxing/eTransmitting on: 07/26/2024 12:25 PM EST
[2025-05-25 10:17] VITALS: BMI 39.6
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
--- OUTSIDE RECORDS SUMMARY | 2025-05-25 12:26 | XMS_ITS | Patient Health Record ---
Author Organization [facility] Address [address] [place] [address] Care Team Providers Care Classified Advertising Clerk Name Role Phone YonatanHerlinda Primary Care Provider Christine Nieves Unavailable [phone] Allergies Allergen (clinical drug ingredient) Drug/Non Drug [...] Problem Acquired hammer toe of right foot (7825444510884543 ) Other hammer toe(s) (acquired), right foot (M20.41) Active confirmed Problem Acquired hammer toe of left foot (3795556918915550 ) Other hammer toe(s) (acquired), left foot (M20.42) Active confirmed Problem Polyneuropathy due to type 2 diabetes mellitus (601587205) Type 2 diabetes mellitus with diabetic polyneuropathy (E11.42) Active confirmed Vital Signs Height 5ft 7in in 02/21/2025 Weight 240 lbs 02/21/2025 BMI 37.59 kg/m2 02/21/2025 Procedures Procedure Date Ordered Date Performed Result Body Sit e 45213-XUVBCET NAIL, 6 OR MORE 11/22/2024 N/A 66880-ADWR SKIN LESIONS, 2 TO 4 11/22/2024 N/A Encounters Encounter Location Date Provider Diagnosis [address] [address] 11/22/2024 Christine Pimentel Other hammer toe(s) (acquired), right foot M20.41 ; Other hammer toe(s) (acquired), left foot M20.42 ; Type 2 diabetes mellitus with diabetic polyneuropathy E11.42 and Tinea unguium B35.[address] [address] 02/21/2025 Christine Pimentel Type 2 diabetes mellitus with diabetic polyneuropathy E11.42 and Tinea unguium B35.[address] [address] 09/30/2024 Christine Pimentel [address] [address] 11/22/2024 Christine Pimentel [address] [address] 05/16/2025 Christine Pimentel Assessments Encounter Date Diagnosis (ICD [...] Treatment Pending Test Test Name Order Date 97685-DPGSJBB NAIL, 6 OR MORE 11/22/2024 91807-VGJG SKIN LESIONS, 2 TO 4 11/23/19 25 Insurance Providers Payer Name Payer Address Payer Phone Subscriber Number Group Number Insured Name Patient Relationship to Insured Coverage Start Date Coverage End Date [facility] [employer] Claims [address] [place] [address] [id number] Sam Honeycutt Self - patient is the [...]
--- OUTSIDE RECORDS SUMMARY | 2025-05-25 12:26 | XMS_ITS ---
Author Name [facility] Organization Unknown Care Team Organization Name Specialty Phone Email Start Date End [facility] 03/14/2025
--- OUTSIDE RECORDS SUMMARY | 2025-05-25 12:26 | XMS_ITS | Encounter Summary ---
Author Organization [facility] Address [address] [place] [address] Care Team Providers Care Mellowing Machine Operator Name Role Phone Unavailable Primary Care Provider Unavailabl e Encounter Details Date Type Department Care Team (Late st Contact Info) Description 03/14/2025 Scanned Document [facility] Department of Endocrinology [place] [address] [facility] [place] [address] [place] [address] Ying George, SHOE DRESSER [address] [facility] [place] [address] [place], [place] [id number] Social History Tobacco Use Types Packs/Day Years Used Date Smoking Tobacco: Never Assessed Sex and Gender Information Value Date Recorded Sex Assigned at Not on file Legal Sex Male 2:20 PM EDT Gender Identity Not on file Sexual Orientation Not on file documented as of this encounter Plan of Treatment Not on file documented as of this encounter Visit Diagnoses Not on filedocumented in this encounter
--- OUTSIDE RECORDS SUMMARY | 2025-05-25 12:26 | XMS_ITS | Clinical Summary ---
Author Organization [facility] Address [address] [place] [address] Care Team Providers Care Seed District Sales Manager Name Role Phone Unavailable Primary Care Provider Unavailabl e Encounters Date Type Department Care Team Description 03/14/2025 Scanned Document [facility] Department of Endocrinology [place] [address] [facility] [address] [place] [address] Ying George, LAURA from Last 3 Months Social History Tobacco Use Types Packs/Day Years Used Date Smoking Tobacco: Never Assessed Sex and Gender Information Value Date Recorded Sex Assigned at Not on file Legal Sex Male 2:20 PM EDT Gender Identity Not on file Sexual Orientation Not on file Plan of Treatment Health Maintenance Due Date Last Done Comments Hepatitis C Virus Screening 1965 HIV Screening 1978 DTaP/Tdap/Td Vaccines (1 - Tdap) 1984 Hepatitis B Vaccines (1 of 3 - 19+ 3-dose series) 12/07 Colonoscopy 2010 Pneumococcal Vaccines 50+ (1 of 1 - PCV) 12/28/2015 Zoster (Shingles) Vaccine (1 of 2) 12/28/2015 Influenza Vaccine 01/06/2025 COVID-19 Vaccine ( - 2024- season) 2025 RSV Vaccine 50 years and old er and Patients (1 - 1-dose 75+ series) 2040 Insurance [facility]
--- OUTSIDE RECORDS SUMMARY | 2025-05-25 12:26 | XMS_ITS | Clinical Summary ---
Author Organization [facility] Address [address] [place] [address] Care Team Providers Care Nuclear Worker Technician Name Role Phone Unavailable Primary Care [...] Depression Screening 06/08/2024 COVID-19 Vaccine (1 - 2024-2 6 season) 2025 Influenza Vaccine (#1) 2025 RSV [...]
== END 2025-05-25 10:45 | disposition home or self-care (01) ==
LOC: HO.HPODS 10:08
PROVIDERS: PCP Internal Medicine; Visit Provider Student in an Organized Health Care Education/Training Program
DX: E11.65 Type 2 diabetes mellitus with hyperglycemia (principal); Z79.4 Long term (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; M21.371 Foot drop, right foot; G62.9 Polyneuropathy, unspecified; I73.9 Peripheral vascular disease, unspecified; L60.3 Nail dystrophy; B35.1 Tinea unguium
CPT/HCPCS: 11721; 99204; G9226

== ENCOUNTER → 2025-05-25 10:07 | Outpatient (BNVA) | payer OTHER, SELFPAY | PROVIDERS: PCP Internal Medicine; Visit Provider Student in an Organized Health Care Education/Training Program | DX: E11.65 Type 2 diabetes mellitus with hyperglycemia (principal); Z79.4 Long term (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; M21.371 Foot drop, right foot; G62.9 Polyneuropathy, unspecified; I73.9 Peripheral vascular disease, unspecified; B35.1 Tinea unguium; L60.9 Nail disorder, unspecified; L60.3 Nail dystrophy | CPT/HCPCS: 11721; 99202 ==

== ENCOUNTER 2025-06-07 08:28 | Outpatient (REF) | payer OTHER, SELFPAY ==
--- OUTSIDE RECORDS SUMMARY | 2025-05-23 03:30 | XMS_ITS ---
Author Organization [facility] Address [address] [place] [address] Care Team Providers Care Tool Drawing Checker Name Role Phone Herlinda Tam Primary Care Provider Christine Nieves [phone] Encounters Encounter Location Date Provider Diagnosis [facility] [address] [place] [phone] 05/23/2025 Christine Pimentel Plan Of Treatment No Information Progress Notes * SHIRAXAVI Sam MooneyDOB: [birth year] (59 yo M)Acc No.[id number]:05/23/2025 Progress Note Patient: Sam TALBOT Provider: Barb Pimentel DPM :1965 A ge:59 Y S ex:Male Date:05/23/2025 Address:[address] [place], [place] [phone] Pcp:Herlinda Tam Subjective: * Chief Complaints: * [...] Date: 07/24/2024 Generated for Printi ng/Faxing/eTransmitting on: 08:31 AM EST
--- OUTSIDE RECORDS SUMMARY | 2025-06-07 08:31 | XMS_ITS | Clinical Summary ---
Author Organization [facility] Address [address] [place] [address] Care Team Providers Care Order Builder Name Role Phone Unavailable Primary Care Provider Unavailabl e Encounters Date Type Department Care Team Description 03/14/2025 Scanned Document [facility] Department of Endocrinology [place] [address] [facility] [address] [place] [address] Ying George, LAURA from Last [...] (1 - 1-dose 75+ series) 2040 Insurance [facility]
--- OUTSIDE RECORDS SUMMARY | 2025-06-07 08:32 | XMS_ITS | Patient Health Record ---
[facility] Address [address] [place] [address] Care Team Providers Care Landscape Specialist Name Role Phone YonatanHerlinda Primary Care Provider Christine Nieves Unavailable [phone] Allergies Allergen (clinical drug ingredient) Drug/Non Drug [...] Problem Acquired hammer toe of right foot (7616421548507137 ) Other hammer toe(s) (acquired), right foot (M20.41) Active confirmed Problem Acquired hammer toe of left foot (8871573430788661 ) Other hammer toe(s) (acquired), left foot (M20.42) Active confirmed Problem Polyneuropathy due to type 2 diabetes mellitus (387005881) Type 2 diabetes mellitus with diabetic polyneuropathy (E11.42) Active confirmed Vital Signs Height 5ft 7in in 02/21/2025 Weight 240 lbs 02/21/2025 BMI 37.59 kg/m2 02/21/2025 Procedures Procedure Date Ordered Date Performed Result Body Sit e 91503-ADTDLDM NAIL, 6 OR MORE 11/22/2024 N/A 48592-[id number] SKIN LESIONS, 2 TO 4 11/22/2024 N/A Encounters Encounter Location Date Provider Diagnosis [address] [address] 11/22/2024 Christine Pimentel Other hammer toe(s) (acquired), right foot M20.41 ; Other hammer toe(s) (acquired), left foot M20.42 ; Type 2 diabetes mellitus with diabetic polyneuropathy E11.42 and Tinea unguium B35.[address] [address] 02/21/2025 Christine Pimentel Type 2 diabetes mellitus with diabetic polyneuropathy E11.42 and Tinea unguium B35.[address] [address] 09/30/2024 Christine Pimentel [address] [address] 11/22/2024 Christine Pimentel [address] [address] 05/16/2025 Christine Pimentel Assessments Encounter Date Diagnosis [...] Treatment Pending Test Test Name Order Date [id number] NAIL, 6 OR MORE 11/22/2024 [id number]-CMDG SKIN LESIONS, 2 TO 4 11/23/19 25 Insurance Providers Payer Name Payer Address Payer Phone Subscriber Number Group Number Insured Name Patient Relationship to Insured Coverage Start Date Coverage End Date [facility] [employer] Claims [address] [place] [address] [id number] Sam Honeycutt Self - patient is the [...]
--- OUTSIDE RECORDS SUMMARY | 2025-06-07 08:32 | XMS_ITS | Clinical Summary ---
Author Organization [facility] it[facility] Address [address] [place] [address] Care Team Providers Care Elevator Constructor Supervisor Name Role Phone Unavailable Primary Care Provider [...]
--- OUTSIDE RECORDS SUMMARY | 2025-06-07 08:32 | XMS_ITS | Encounter Summary ---
Author Organization [facility] Address [address] [place] [address] Care Team Providers Care Cable Installer Repairer Helper Name Role Phone Unavailable Primary Care Provider Unavailabl e Encounter Details Date Type Department Care Team (Late st Contact Info) Description 03/14/2025 Scanned Document [facility] Department of Endocrinology [place] [address] [facility] [place] [address] [place] [address] Ying George, LOADER MAGAZINE GRINDER [address] [facility] [place] [address] [place], [place] [id number] Social History Tobacco Use Types Packs/Day Years [...]
[2025-06-07 09:14] LABS: Cholesterol 204 mg/dL (<200); HDL Cholesterol 43 mg/dL (>40); Triglycerides 136 mg/dL (<150)
== END 2025-06-07 08:29 | disposition home or self-care (01) ==
LOC: HO.LAB 08:28
PROVIDERS: PCP Internal Medicine
DX: E11.65 Type 2 diabetes mellitus with hyperglycemia (principal); E11.3293 Type 2 diabetes mellitus with mild nonproliferative diabetic retinopathy without macular edema, bilateral; E78.00 Pure hypercholesterolemia, unspecified; Z79.4 Long term (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
CPT/HCPCS: 36415; 80061; 83036

== ENCOUNTER 2025-06-07 09:25 | Outpatient (AMB) | payer OTHER, SELFPAY ==
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
[2025-06-07 09:28] VITALS: BP 120/82; PULSE 89; O2SAT 96; BMI 40.0
[2025-06-07 09:39] LABS: Glucose, Whole Blood 260 mg/dL (60-115)
== END 2025-06-07 09:57 | disposition home or self-care (01) ==
LOC: HO.ENCR 09:26
PROVIDERS: PCP Internal Medicine; Visit Provider Internal Medicine
DX: E11.65 Type 2 diabetes mellitus with hyperglycemia (principal); Z79.4 Long term (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; E11.3293 Type 2 diabetes mellitus with mild nonproliferative diabetic retinopathy without macular edema, bilateral